=== PATIENT | male | born 1950 | race Caucasian/White ===

== ENCOUNTER 2024-05-13 10:58 | Day surgery (SDC) | payer MEDICARE, BC, SELFPAY ==
[2024-05-13] VITALS (22 sets, daily range): BP systolic 98–156; BP diastolic 65–95; PULSE 65–86; RESP 14–20; TEMP 35.8–36.8; O2SAT 92–95; BMI 36.6
--- OUTSIDE RECORDS SUMMARY | 2024-05-13 11:04 | XMS_ITS | Clinical Summary ---
Author Organization [employer] Address [place], [place] [address] Care Team Providers Care Appellate [employer] Judge Name Role Phone Pcp, No Primary Care Provider Unavailabl e Allergies Active Allergy Reactions Criticality Noted Date Comments Iodine 05/05/2005 Lorazepam Hallucinations 07/21/2009 (ativan) hallucinations Shellfish Containing Products Anaphylaxis High 05/03/2005 mild reaction to shrimp Medications multivitamin (MVI) tablet Take 1 tablet. by mouth continuous as needed (pain). 0 05/15/19 17 Active acetaminophen SR (Tylenol 8 Hour) 650 mg Extended-Releas e tabletIndicatio ns:Chronic abdominal pain Take 1 Tablet (650 mg) by mouth every 8 hours if needed. Max acetaminophen dose: 4000mg in 24 hrs. 0 02/05/20 21 Active apixaban (Eliquis) 5 mg tabletIndicatio ns:Chronic deep vein thrombosis (DVT) of femoral vein, unspecified laterality (HC) Take 0.5 Tablets (2.5 mg) by mouth two times daily. 90 Tablet 4 05/16/19 24 Active Additional Information Patient taking differently:2.5 mg OralDAILY, Reported on 05/12/2024 allopurinoL (ZYLOPRIM) 100 mg tabletIndicatio ns:Elevated uric acid in blood Take 2 Tablets (200 mg) by mouth once daily. take 100mg by mouth once daily for 2 weeks; then increase to 200mg for 2 weeks; then increase to 300mg 180 Tablet 1 09/27/19 24 Active DULoxetine (CYMBALTA) 60 mg Delayed-release capsuleIndicati ons:Chronic pain disorder,Neurop athy TAKE ONE CAPSULE BY MOUTH EVERY DAY START AFTER 30MG CAPSULE 90 Capsule 1 01/18/20 24 Active cholecalciferol (Vitamin D-3) 2,000 unit capsule Take 1 Capsule (2,000 units) by mouth once daily. 04/14/20 24 Active diphenhydrAMINE (BENADRYL) 25 mg capsule pt taking twice daily 04/14/20 24 Active pantoprazole (PROTONIX) 40 mg delayed-release tabletIndicatio ns:Gastroesopha geal reflux disease, unspecified whether esophagitis present Take 1 Tablet (40 mg) by mouth once daily. 30 Tablet 2 04/14/20 24 Active celecoxib (CELEBREX) 200 mg capsuleIndicati ons:Chronic abdominal pain Take 1 Capsule (200 mg) by mouth 2 times daily if needed for Pain. FOR PAIN 180 Capsule 4 05/16/19 24 024 Discontin ued(*Med complete/ Regimen complete/ Level of care change) pantoprazole (PROTONIX) 40 mg delayed-release tabletIndicatio ns:Gastroesopha geal reflux disease, unspecified whether esophagitis present Take 1 Tablet (40 mg) by mouth once daily. 30 Tablet 03/18/20 24 024 Discontin ued(Reord er (E-cancel not sent)) Active Problems Problem Noted Date Diagnosed Date Prediabetes 04/21/2024 Factor 5 Leiden mutation, heterozygous 4 Abnormal glucose 09/27/2023 Hyperlipidemia 07/02/2022 Noncompliance with medications 06/10/2019 Arthritis of right knee 01/31/2019 Chronic pain of right knee 01/31/2019 Acquired varus deformity knee, right 01/31/2019 History of arthroplasty of left knee 01/31/2019 Pes anserinus tendinitis of right lower extremit y 01/31/2019 Prothrombin gene mutation 10/01/2018 Failure of outpatient treatment 08/15/2017 Left nephrolithiasis 08/15/2017 Ventral hernia with obstruction, without gangren e 08/15/2017 B12 deficiency 07/08/2017 Chronic pain disorder 06/15/2016 Pelvic fracture 10/28/2007 Overview (03/18/2024): [employer] ALCOHOL OVERUSE 05/06/2005 Dvt femoral (deep venous thrombosis) 05/05/2005 Overview (05/06/2005): right superficial femoral/popliteal clot on u/s [place] 05/03/05 Gastroesophageal reflux disease with esophagitis Resolved Problems Problem Noted Date Diagnosed Date Resolved Date Pain medication agreement 10/16/2014 Anticoagulation monitoring, INR range 2-3 02/17/2013 11/12/2015 Overview (11/12/2015): Hilda Jett MD at 10/13/2015 10:34 AM Status: Signed Expand All Collapse All Both Apixaban and Rivaroxaban have the same co-pay of $24 a month. Decision was made to proceed with apixaban 2.5 mg twice daily, long-term. Patient education brochure was given to the patient. Hilda Jett MD, FACP, [facility], [facility] Vascular Medicine Post-traumatic seroma 04/13/20092023 Colitis 12/08/2007 03/18/2024 Urethral injury 10/28/2007 03/18/2024 Overview (03/18/2024): disruption CHOLELITHIASIS 05/05/2005 05/15/2016 RUQ PAIN 05/05/2005 05/15/2016 HYPOXIA 05/05/2005 05/15/2016 Chronic pain disorder 2023 Overview (07/23/2019): Regular tramadol use,#120 should last 30 days. Strict. Encounter for screening colonoscopy 03/18/2024 Encounters Date Type Department Care Team Description 05/12/2024 10:50 AM HOUSE STEWARD/STEWARDESS Office Visit [address] [phone] Juanis Carrero NP Follow Up (Before surgery tomorrow ) 05/12/2024 Travel 04/29/[address] [address] Juanis Carrero NP Medication Management (celecoxib (CELEBREX) ) 04/22/2024 10:15 AM HOUSE STEWARD/STEWARDESS Orders Only [address] [place] [address] Lab, [facility] 04/21/2024 5:00 PM HOUSE STEWARD/STEWARDESS Office Visit [facility] [address] [place] [phone] Dalila Martinez NP Diarrhea (Liquid stools, cramping stomach x 4 days.) 04/21/2024 Travel 04/21/[address] [place] [address] Juanis Carrero NP 04/21/2024 Nurse Triage [address] [address] Juanis Carrero NP Diarrhea 04/18/[address] [address] Juanis Carrero NP Orthopedic Referral (Dr. Rodriguez- [facility]) 04/15/[address] [address] Juanis Carrero NP Lab 04/15/[address] [place] [address] Juanis Carrero NP 04/14/2024 9:10 AM HOUSE STEWARD/STEWARDESS Office Visit [address] [place] [address] Juanis Carrero NP Pre-Op Exam (05/13/24- right knee placement, [facility]); Form (handicap parking) 04/14/[address] [place] [address] Juanis Carrero NP 04/14/2024 Orders Only [address] [place] [address] Juanis Carrero NP 1 scan: (1-Ord) 04/14/2024 04/14/2024 Travel 04/03/[address] [place] [address] Juanis Carrero NP Error-please disregard 03/18/2024 10:20 AM HOUSE STEWARD/STEWARDESS Ancillary Procedure [address] [address] 03/18/2024 10:15 AM HOUSE STEWARD/STEWARDESS Ancillary Procedure [address] [address] 03/18/2024 8:45 AM HOUSE STEWARD/STEWARDESS Office Visit [address] [place] [address] Juanis Carrero, ED Pain (right knee, right hip, shoulders, arms, wrists); Eye Problem (watery eyes more often, wound under eye); Acid Indigestion (vomiting); Sinus Problem (morning phlegm/sinus issues) 03/18/[address] [place] [address] Juanis Carrero NP 03/18/2024 Travel from Last 3 Months Immunizations Name Administration Dates Next Due COVID-19 vaccine (Pfizer-Bio NTech 30mcg/0.3mL) 12YO+ BIVALENT PF, MDV 09/14/2022 COVID-19 vaccine (Pfizer-Bio NTech 30mcg/0.3mL) 12YO+ GRACIELA-SUCROSE PF, MDV 10/03/2021 COVID-19 vaccine (Pfizer-Bio NTech 30mcg/0.3mL) PF, MDV 02/04/2021,07/13/2020,06/22/2020 HepA-HepB (Twinrix) 06/10/2019,06/28/2017,2016 Hepatitis A, Unspecified 05/15/2016 Influenza A (H1N1), Inactivated 05/12/2009 Influenza Virus, Unspecified 01/28/2017 Influenza, CCIIV3 (Age >=6 M O) (Egg Free) 01/27/2014 Influenza, IIV3 (Age >=3 years) 01/09/2012,01/10 Influenza, IIV4 01/25/2017, 6,02/12/2015,01/07 Influenza, Inactivated AIIV4 (Age 65+ Years) Preserv Free 03/15/2023,02/14/2022,02/04/2021,01/13 Influenza, Inactivated IIV3 (Age 65+ Years) Preserv Free 02/05/2024,01/27/2019,02/26/2018 Pneumococcal Poly,23-Valent (Pneumovax) 06/10/2019 Pneumococcal conj 13-Valent (Prevnar 13) 06/28/2017 RSV, Bivalent Vaccine Recons tituted (Abrysvo 120MCG/0.5mL) 04/18/2023 Td (Age >=7 Years) 10/28/2007 Tdap 05/27/2014 Zoster (Shingrix-RZV, recombinant) 10/03/2021, Family History Medical History Relation Name Comments Cancer Father age 57 fro m salivary gland cancer GI Disease Mother celiac Heart attack Paternal Uncle 1 Rudolph Heart attack Paternal Uncle 2 Bob Anesthesia Problem No Family History Relation Name Status Comments Father (Age 57) Maternal Grandfather Maternal Grandmother Mother Paternal Grandfather Paternal Grandmother Paternal Uncle 1 Rudolph Paternal Uncle 2 Bob Social History Tobacco Use Types Packs/Day Years Used Date Smoking Tobacco: Never Passive Smoke Exposure: Never Smokeless Tobacco: Never Tobacco Cessation:Counseling Given: Not Answered Alcohol Use Standard Drinks/Week Comments Not Currently 0 (1 standard drink = 0.6 oz pur e alcohol) drinks 2-3 beers per day PHQ-2 Answer Date Recorded PHQ-2 TOTAL SCORE 0 05/16/2023 Social Connections Answer Date Recorded Do you often feel lonely or isolated from those around you? 0 02/26/2023 Financial Resource Strain Answer Date R ecorded Difficulty of Paying Living Expenses 3 02/26/2023 Difficulty of Paying Living Expenses Not on file 02/26/2023 Food Insecurity Answer Date Recorded Do you worry your food will run out before you are able to buy more? 1 02/26/2023 Transportation Needs Answer Date Record ed Does lack of transportation keep you from medica l appointments? 1 02/26/2023 Does lack of transportation keep you from work, meetings or getting things that you need? 1 02/26/2023 Housing Stability Answer Date Recorded What is your housing situation today? 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 Not on file Not on file Obstetrics History Last Filed Vital Signs Vital Sign Reading Time Taken Comments Blood Pressure 126/74 05/12/2024 10:54 AM HOUSE STEWARD/STEWARDESS Pulse 78 05/12/2024 10:54 AM HOUSE STEWARD/STEWARDESS Temperature 36.4 C (97.5 F) 04/21/2024 5:41 PM HOUSE STEWARD/STEWARDESS Respiratory Rate 20 04/21/2024 5:41 PM HOUSE STEWARD/STEWARDESS Oxygen Saturation 94% 04/21/2024 5:41 PM HOUSE STEWARD/STEWARDESS Inhaled Oxygen Concentration - - Weight 114.9 kg (253 lb 3.2 oz) 025 10:54 AM HOUSE STEWARD/STEWARDESS Height 177 cm (5' 9.69) 05/29/2023 10: 59 AM HOUSE STEWARD/STEWARDESS Body Mass Index 36.66 05/29/2023 10:59 AM HOUSE STEWARD/STEWARDESS Plan of Treatment Health Maintenance Due Date Last Done Comments Depression screening for age 12+ 05/16/2024 05/16/2023, 05/16/2023, 09/14/2022, Additional history exists Medicare Wellness for age 65+ 05/16/2024, 08/05/2020, 06/28/2017 Tetanus booster 05/27/2024 05/27/2014, 10/28/2007 BMI (ht and wt on same day) for age 18+ 05/29/2024 05/29/2023, 05/16/2023, 09/14/2022, Additional history exists Lipids for age 45-75 05/16/2028 05/16/2023, 05/31/2022, 08/05/2020, Additional history exists Colonoscopy through age 75 07/21/203107/20, 07/17/2011, 04/01/2007, Additional history exists Tdap Completed 05/27/2014 Hepatitis C screening for ag e 18-79 Completed 06/10/2018, 05/15/2016 Pneumococcal series for age 50+ Completed , 06/28/2017 Zoster (shingles) series for age 50+ Completed 10/03/2021, 08/03/2021 RSV vaccine for adults or Completed 04/18/2023 COVID-19 vaccine series Completed 02/05/20, 03/15/2023, 09/14/2022, Additional history exists Influenza for age 65+ Completed 02/05/2024 , 03/15/2023, 02/14/2022, Additional history exists Procedures Procedure Name Priority Date/Time Associated Diagnosis Comments STOOL PATHOGEN MULTIPLEX PCR PANEL Routine 04/22/2024 5:00 AM HOUSE STEWARD/STEWARDESS Acute diarrhea CBC WITH AUTO DIFFERENTIAL Routine 04/14/2024 10:39 AM HOUSE STEWARD/STEWARDESS Factor 5 Leiden mutation, heterozygous (HC) Deep vein thrombosis (DVT) of femoral vein, unspecified chronicity, unspecified laterality (HC) COMP METABOLIC PANEL Routine 04/14/2024 10:39 AM HOUSE STEWARD/STEWARDESS Factor 5 Leiden mutation, heterozygous (HC) Deep vein thrombosis (DVT) of femoral vein, unspecified chronicity, unspecified laterality (HC) URIC ACID Routine 04/14/2024 10:39 AM HOUSE STEWARD/STEWARDESS Gout, unspecified cause, unspecified chronicity, unspecified site EKG 12 LEAD Routine 04/14/2024 12:00 AM HOUSE STEWARD/STEWARDESS Pre-op exam HEMOGLOBIN A1C Add On 04/14/2024 12:00 AM HOUSE STEWARD/STEWARDESS Elevated blood sugar XR HIP 2 OR 3 VIEWS W PELVIS RIGHT Routine 03/18/2024 10:32 AM HOUSE STEWARD/STEWARDESS Hip pain, right XR KNEE WB 1 VIEW AP BILATERAL AND 2 VIEWS RIGHT STAT 03/18/2024 10:31 AM HOUSE STEWARD/STEWARDESS Arthritis of right knee LIPID PANEL W REFLEX MEASURED LDL Routine 05/16/2023 9:35 AM HOUSE STEWARD/STEWARDESS Hyperlipidemia, unspecified hyperlipidemia type COLONOSCOPY 07/20/2021 10:54 AM CDT ANTI HCV Routine 06/10/2018 10:57 AM HOUSE STEWARD/STEWARDESS Encounter for HCV screening test for high risk patient from Last 3 Months or Most Recently Relevant to Health Maintenance Results * (ABNORMAL) STOOL PATHOGEN MULTIPLEX PCR PANEL (04/22/2024 5:00 AM HOUSE STEWARD/STEWARDESS) Campylobacter NOT Detected NOT Detected 04/23/2024 6:06 PM HOUSE STEWARD/STEWARDESS [facility] Salmonella NOT Detected NOT Detected 04/23/2024 6:06 PM HOUSE STEWARD/STEWARDESS [facility] Shigella NOT Detected NOT Detected 04/23/2024 6:06 PM HOUSE STEWARD/STEWARDESS [facility] Vibrio NOT Detected NOT Detected 04/23/2024 6:06 PM HOUSE STEWARD/STEWARDESS [facility] Yersinia Enterocolitica NOT Detected NOT Detected 04/23/2024 6:06 PM [facility] Shiga Toxin 1 NOT Detected NOT Detected 04/23/2024 6:06 PM HOUSE STEWARD/STEWARDESS [facility] Shiga Toxin 2 NOT Detected NOT Detected 04/23/2024 6:06 PM HOUSE STEWARD/STEWARDESS [facility] Norovirus Detected(A) NOT Detected 04/23/2024 6:06 PM HOUSE STEWARD/STEWARDESS [facility] Rotavirus NOT Detected NOT Detected 04/23/2024 6:06 PM HOUSE STEWARD/STEWARDESS [facility] Stool STOOL SPECIMEN / Unknown Non-Blood / Unknown 04/22/2024 5:00 AM HOUSE STEWARD/STEWARDESS 04/22/2024 10:18 AM HOUSE STEWARD/STEWARDESS [facility] - 04/23/2024 6:06 PM HOUSE STEWARD/STEWARDESS This test is a Culture Independent Diagnostic Test (CIDT) therefore isolates are not available for susceptibility testing. Antibiotic treatment is often contraindicated and may be detrimental in cases of enteric infections, thus routine susceptibility testing is not recommended. us Dalila Martinez NP MICROBIOLOGY Final Re sult [facility] [address] * CBC AND DIFFERENTIAL (04/14/2024 10:39 AM HOUSE STEWARD/STEWARDESS) [facility] WHITE BLOOD CELL COUNT 7.2 3.8 - 10.8 Thousand/u L [facility] RED BLOOD CELL COUNT 4.65 4.20 - 5.80 Million/uL [facility] HEMOGLOBIN 14.4 13.2 - 17.1 g/dL [facility] HEMATOCRIT 41.9 38.5 - 50.0 % [facility] MCV 90.1 80.0 - 100.0 fL [facility] MCH 31.0 27.0 - 33.0 pg [facility] MCHC 34.4 32.0 - 36.0 g/dL [facility] Comment: For adults, a slight decrease in the calculated MCHC value (in the range of 30 to 32 g/dL) is most likely not clinically significant; however, it should be interpreted with caution in correlation with other red cell parameters and the patient's clinical condition. RDW 12.9 11.0 - 15.0 % [facility] PLATELET COUNT 302 140 - 400 Thousand/u L [facility] MPV 9.4 7.5 - 12.5 fL [facility] ABSOLUTE NEUTROPHILS 4,378 1,500 - 7,800 cells/uL [facility] ABSOLUTE LYMPHOCYTES 1,721 850 - 3,900 cells/uL [facility] ABSOLUTE MONOCYTES 684 200 - 950 cells/uL [facility] ABSOLUTE EOSINOPHILS 346 15 - 500 cells/uL [facility] ABSOLUTE BASOPHILS 72 0 - 200 cells/uL [facility] NEUTROPHILS 60.8 % [facility] LYMPHOCYTES 23.9 % [facility] MONOCYTES 9.5 % [facility] EOSINOPHILS 4.8 % [facility] BASOPHILS 1.0 % [facility] Blood BLOOD SPECIMEN / Unknown 04/14/2024 10:39 AM HOUSE STEWARD/STEWARDESS 04/14/2024 10:40 AM HOUSE STEWARD/STEWARDESS Juanis Carrero NP HEMATOLOGY Final Result Performing Organization Address City/[facility]/ZIP Co de Phone Number [facility] [address] [place] [address], [facility] [address] [place] [address] * URIC ACID (04/14/2024 10:39 AM HOUSE STEWARD/STEWARDESS) [facility] URIC ACID 4.2 4.0 - 8.0 mg/dL [facility] Comment: Therapeutic target for gout patients: <6.0 mg/dL Blood BLOOD SPECIMEN / Unknown 04/14/2024 10:39 AM HOUSE STEWARD/STEWARDESS 04/14/2024 10:40 AM HOUSE STEWARD/STEWARDESS Juanis Carrero NP CHEMISTRY Final Result Performing Organization Address [facility] Co de Phone Number [facility] [address] [place] [address], [facility] [address] [place] [address] * (ABNORMAL) COMP METABOLIC PANEL (04/14/2024 10:39 AM HOUSE STEWARD/STEWARDESS) [facility] GLUCOSE 125(H) 65 - 99 mg/dL [facility] Comment: Fasting reference interval For someone without known diabetes, a glucose value between 100 and 125 mg/dL is consistent with prediabetes and should be confirmed with a follow-up test. UREA NITROGEN (BUN) 17 7 - 25 mg/dL [facility] CREATININE 0.89 0.70 - 1.28 mg/dL [facility] EGFR 92 > OR = 60 mL/min/1. 73m2 [facility] BUN/CREATININE RATIO SEE NOTE: (calc) [facility] Comment: Not Reported: BUN and Creatinine are within reference range. SODIUM 139 135 - 146 mmol/L [facility] POTASSIUM 4.7 3.5 - 5.3 mmol/L [facility] CHLORIDE 105 98 - 110 mmol/L [facility] CARBON DIOXIDE 24 20 - 32 mmol/L [facility] CALCIUM 9.3 8.6 - 10.3 mg/dL [facility] PROTEIN, TOTAL 6.6 6.1 - 8.1 g/dL [facility] ALBUMIN 4.0 3.6 - 5.1 g/dL [facility] GLOBULIN 2.6 1.9 - 3.7 g/dL (calc) [facility] ALBUMIN/GLOBULIN RATIO 1.5 1.0 - 2.5 (calc) [facility] BILIRUBIN, TOTAL 0.3 0.2 - 1.2 mg/dL [facility] ALKALINE PHOSPHATASE 106 35 - 144 U/L [facility] AST 16 10 - 35 U/L [facility] ALT 12 9 - 46 U/L [facility] Blood BLOOD SPECIMEN / Unknown 04/14/2024 10:39 AM HOUSE STEWARD/STEWARDESS 04/14/2024 10:40 AM HOUSE STEWARD/STEWARDESS Juanis Carrero NP CHEMISTRY Final Result [facility] [address] [place] [address], [facility] [address] [place] [phone] * (ABNORMAL) HEMOGLOBIN A1C (04/14/2024 12:00 AM HOUSE STEWARD/STEWARDESS) HEMOGLOBIN A1C 5.8(H) <5.7 % of total Hgb [facility] Comment: For someone without known diabetes, a hemoglobin A1c value between 5.7% and 6.4% is consistent with prediabetes and should be confirmed with a follow-up test. For someone with known diabetes, a value <7% indicates that their diabetes is well controlled. A1c targets should be individualized based on duration of diabetes, age, comorbid conditions, and other considerations. This assay result is consistent with an increased risk of diabetes. Currently, no consensus exists regarding use of hemoglobin A1c for diagnosis of diabetes for children. Blood BLOOD SPECIMEN / Unknown 04/14/2024 04/15/2024 5:35 PM HOUSE STEWARD/STEWARDESS us Juanis Carrero NP CHEMISTRY Final Result [facility] [address] [place] [address], [facility] [address] [place] [address] * EKG 12 LEAD (04/14/2024 12:00 AM HOUSE STEWARD/STEWARDESS) us Juanis Carrero NP EKG ORD Final Result * XR HIP 2 OR 3 VIEWS W PELVIS RIGHT (03/18/2024 10:32 AM HOUSE STEWARD/STEWARDESS) Anatomical Region Laterality Modality HIPS, HIPR, Pelvis Computed Radi ography 03/18/2024 11:1 7 AM HOUSE STEWARD/STEWARDESS Impressions 03/18/2024 11:17 AM HOUSE STEWARD/STEWARDESS No significant change from the CT scan of 08/13/2017. Dictated by Nadege Valverde MD @ 03/18/2024 11:17:20 AM (Electronically Signed) Narrative 03/18/2024 11:17 AM HOUSE STEWARD/STEWARDESS For Patients: As a result of the Cures Act, medical imaging exams and procedure reports are released immediately into your electronic medical record. You may view this report before your referring provider. If you have questions, please contact your health care provider. INDICATION: Right hip pain. TECHNIQUE: AP pelvis and right hip, 3 views. COMPARISON: CT abdomen pelvis 08/13/2017. FINDINGS: Chronic posttraumatic distortion of the symphysis pubis and right superior/inferior pubic ramus similar to the previous CT. Metallic hardware in the left pelvis with single long screw traversing from the left iliac wing through the sacrum into the right iliac wing similar to the prior CT. Right hip joint spacing normal. No acute fracture, dislocation, joint arthropathy or lytic bone destruction. Procedure Note Julien Valverde MD - 03/18/2024 For Patients: As a result of the Cures Act, medical imagingexams and procedure reports are released immediately into your electronicmedical record. You may view this report before your referring provider.If you have questions, please contact your health care provider. INDICATION: Right hip pain. TECHNIQUE: AP pelvis and right hip, 3 views. COMPARISON: CT abdomen pelvis 08/13/2017. FINDINGS: Chronic posttraumatic distortion of the symphysis pubis and rightsuperior/inferior pubic ramus similar to the previous CT. Metallichardware in the left pelvis with single long screw traversing from theleft iliac wing through the sacrum into the right iliac wing similar tothe prior CT. Right hip joint spacing normal. No acute fracture, dislocation, jointarthropathy or lytic bone destruction. IMPRESSION: No significant change from the CT scan of 08/13/2017. Dictated by Nadege Valverde MD @ 03/18/2024 11:17:20 AM (Electronically Signed) Juanis Carrero NP GENERAL IMAGING Final Result * XR KNEE WB 1 VIEW AP BILATERAL AND 2 VIEWS RIGHT (03/18/2024 10:31 AM HOUSE STEWARD/STEWARDESS) Anatomical Region Laterality Modality KNEES, KNEE R Computed Radiogr aphy 03/18/2024 10:3 9 AM HOUSE STEWARD/STEWARDESS Narrative 03/18/2024 10:39 AM HOUSE STEWARD/STEWARDESS For Patients: As a result of the Cures Act, medical imaging exams and procedure reports are released immediately into your electronic medical record. You may view this report before your referring provider. If you have questions, please contact your health care provider. Indication: Arthritis of the right knee Comparison: None available. Technique: Standing AP, lateral, and sunrise views of the right knee were obtained Findings: There is no displaced fracture or dislocation. Redemonstration and progression of severe degenerative changes of the medial compartments with loss of joint space, subchondral sclerosis and tibial spine spurring. There is a small suprapatellar joint effusion. Impression: Severe degenerative changes of the medial compartment progressed from remote comparison exam. No evidence of acute osseous abnormality. Small suprapatellar joint effusion. Dictated by Delroy Pritchard MD @ 03/18/2024 10:39:25 AM (Electronically Signed) Procedure Note Delroy Pritchard MD - 03/18/2024 For Patients: As a result of the Cures Act, medical imagingexams and procedure reports are released immediately into your electronicmedical record. You may view this report before your referring provider.If you have questions, please contact your health care provider. Indication: Arthritis of the right knee Comparison: None available. Technique: Standing AP, lateral, and sunrise views of the right knee were obtained Findings: There is no displaced fracture or dislocation. Redemonstration and progression of severe degenerative changes of themedial compartments with loss of joint space, subchondral sclerosis andtibial spine spurring. There is a small suprapatellar joint effusion. Impression: Severe degenerative changes of the medial compartment progressed fromremote comparison exam. No evidence of acute osseous abnormality. Smallsuprapatellar joint effusion. Dictated by Delroy Pritchard MD @ 03/18/2024 10:39:25 AM (Electronically Signed) Juanis Carrero NP GENERAL IMAGING Final Result * (ABNORMAL) LIPID PANEL W REFLEX MEASURED LDL (05/16/2023 9:35 AM [facility]) CHOLESTEROL,TOTAL 202(H) 100 - 199 mg/dL 05/16/2023 10:07 AM [facility] Comment: Cholesterol, Total Reference Ranges Desirable <200 mg/dL Borderline 200-239 mg/dL High >=240 mg/dL TRIGLYCERIDES 98 <150 mg/dL 05/16/2023 10:07 AM [facility] HDL CHOLESTEROL 70 >40 mg/dL 10:07 AM [facility] NON-HDL CHOLESTEROL 132 <145 mg/dl 05/16/2023 10:07 AM [facility] CHOL/HDL RATIO 2.89 <4.50 05/16/2023 10:07 AM [facility] LDL CHOLESTEROL 112 <=130 mg/dL 05/16/2023 10:07 AM [facility] VLDL CHOLESTEROL 20 <=30 mg/dL 05/16/2023 10:07 AM [facility] PROVIDER ORDERED STATUS RANDOM 05/16/2023 10:07 AM [facility]ST[facility]ARD[facility] Blood BLOOD SPECIMEN / Unknown Venipuncture / Unknown 05/16/2023 9:35 AM [facility] 05/16/2023 9:35 AM [facility] us Gage Casillas DO CHEMISTRY Final Res ult [facility] [address] [place] [address] * COLONOSCOPY (07/20/2021 10:54 AM CDT) 07/20/2021 10:5 4 AM CDT Narrative Transcriptions Taiwo Lynn MD - 07/20/2021 11:42 AM CDT Patient Name: Jarred Underwood Procedure Date: 07/20/2021 Gender: Male Date of : 1950 Admit Type: Ambulatory Procedure: Colonoscopy Proceduralist: Taiwo Gonzales Indications/Pre-Op Diagnosis: Screening for colorectal malignantneoplasm Medications: Midazolam 5 mg IV, Fentanyl 100 microgramsIV Procedure Description: The patient had risks, benefits and alternatives explained to andgave informed consent. The patient had a stable cardiopulmonary status and judged an adequate candidate for conscious sedation. The colonoscope was passed through the anus and advanced to thececum, identified by appendiceal orifice and ileocecal valve. Thecolonoscopy was performed without difficulty. The patient tolerated the procedure well. The quality of the bowel preparation was adequate. Theileocecal valve, appendiceal orifice, and rectum were photographed. Complications: No immediate complications. Estimated Blood Loss & Specimen: Estimated blood loss: none. Specimen collected - None Findings: The perianal and digital rectal examinations were normal. The retroflexed view of the distal rectum and anal verge was normaland showed no anal or rectal abnormalities. There was evidence of a prior end-to-end colo-colonic anastomosis inthe distal sigmoid colon. This was patent and was characterized byhealthy appearing mucosa. Impressions/Post-Op Diagnosis: - Patent end-to-end colo-colonic anastomosis, characterized byhealthy appearing mucosa. - No specimens collected. Recommendation: - Discharge patient to home. - Resume previous diet. - Continue present medications. - Repeat colonoscopy in 10 years for surveillance. Moderate Sedation: Moderate (conscious) sedation was administered by the endoscopy nurse and supervised by the endoscopist. [Parameters Monitored]. [Sedation Duration Time]. Moderate (conscious) sedation was administered by the endoscopy nurse and supervised by the endoscopist. The patient's oxygen saturation, heart rate, blood pressure and response to care were monitored. Total physician intraservice time was 24 minutes. Taiwo Lynn, 07/20/2021 11:42:36 AM This report has been signed electronically. Note Initiated On: 07/20/2021 10:54 AM Taiwo Lynn MD PROCEDURE ORD Final Res ult * ANTI HCV (06/10/2018 10:57 AM [facility]) HEPATITIS C ANTIBODY Non-React napoleon Non-React napoleon 06/10/2018 8:03 PM [facility] Comment:Antibodies to HCV no t detected; does not exclude the possibility of exposure to HCV. Blood BLOOD SPECIMEN / Unknown Venipuncture / Unknown 06/10/2018 10:57 AM [facility] 06/10/2018 10:57 AM [facility] Gage Anderson Vinny DO SEND OUTS Final Res ult [facility] [address] [place] [address], [place] from Last 3 Months or Most Recently Relevant to Health Maintenance Insurance [employer] [place] [employer] [place] BLUE MR PB ONLY [employer] [place] BLUE HB ONLY MEDICARE PART B HB ONLY MEDICARE PART A HB ONLY MEDICARE PB ONLY [employer] [place] BLUE MR PB ONLY Advance Directives * Full Code (Latest Code Status on File) Date Activated Date Inactivated Comments 07/20/2021 9:48 AM 07/20/2021 3:44 PM Question Answer Comments Code Status Discussion: Per Existing Order * Full Code Date Activated Date Inactivated Comments 08/15/2017 11:00 AM 08/16/2017 7:24 PM Question Answer Comments Code Status Discussion: Discussed pt not s ure though * Full Code Date Activated Date Inactivated Comments 08/03/2017 12:12 PM 08/04/2017 2:28 AM Question Answer Comments Code Status Discussion: Discussed * Full Code Date Activated Date Inactivated Comments 05/05/2005 8:32 PM 05/09/2005 1:[address] Judge Relationship Specialty Start Date End Date Pcp, No . PCP - General 07/12/23
[2024-05-13] MEDS: LACTATED RINGERS 1000 ML 1,000 ML 100 ML IV (12:00)
[2024-05-13] MEDS: SODIUM CHLORIDE 0.9 % (FLUSH) 10 ML SYRINGE IVF (12:00)
[2024-05-13] MEDS: OXYCODONE (CR) 10 MG TAB.ER.12H PO (12:15)
[2024-05-13] MEDS: CELECOXIB 200 MG CAPSULE PO (12:15)
[2024-05-13] MEDS: ACETAMINOPHEN 500 MG TABLET 1000 MG PO ×2 (12:15→18:55)
[2024-05-13] MEDS: MIDAZOLAM HCL 1 MG/ML inj IVP (12:20)
[2024-05-13] MEDS: fentaNYL 100 MCG/2 ML inj IVP (12:20)
--- NOTE | 2024-05-13 12:30 | SUR.PREOP ---
TIME?OUT:?1210, right knee PT/RN/MDA?VERIFICATION?OF?SURGICAL?SITE,?PROCEDURE,?AND?CONSENT OBTAINED?PRIOR?TO?INVASIVE?PROCEDURE.
--- NOTE | 2024-05-13 12:42 | P.NB_ITS ---
Nerve Block Nerve Block Time Seen by Provider: 12:20 Date Seen: 05/13/24 Type of block requested by surgeon for post-operative analgesia: adductor canal Side: right Time out performed: Yes Verification of patient name: Yes Verification of date of : Yes Site marking: site marked Name of person performing procedure: Earl Continuous monitoring Was continuous monitoring of O2 sat, B/P, personnel monitor, recorded every 15 minutes?: Yes Procedure Checklist: sterile prep, needles and gloves Ultrasound guided. Images saved: Yes Medications given in 5ml increments after negative aspiration: Marcaine %: 0.25 mL: 15 Needle gauge: 20 Precedex (mcg): 25 Patient tolerated procedure well: Yes Block Charges Block Charge (with Pro Fee): Femoral Nerve Use of Ultrasound Machine for Block: Yes- US Guidance/pain block
--- NOTE | 2024-05-13 12:42 | P.ANES_ITS ---
Anesthesia Charges Start Date/Time Anesthesia Start Date: 05/13/24 Anesthesia Start Time: 12:27 Stop Date/Time Anesthesia Stop Date: 05/13/24 Anesthesia Stop Time: 14:54 Summary Extremes of Age - Over 70 or under 1: MDA Coding CPT Codes CPT Codes: ANESTH KNEE ARTHROPLASTY - 93517 ([id number]) P2 - PATIENT W/MILD SYST DISEASE, QK - SUPERVISORY LIFEGUARD 2-4 CNCRNT ANES PROC, QX - RETAIL ASSISTANT SVC W/ MD MED DIRECTION Additional Codes: Summary - Extremes of Age - Over 70 or under 1: MDA ([id number])
--- NOTE | 2024-05-13 12:42 | P.NB_ITS ---
Nerve Block Nerve Block Time Seen by Provider: 01:20 Date Seen: 05/13/24 Type of block requested by surgeon for post-operative analgesia: geniculars Side: right Time out performed: Yes Verification of patient name: Yes Verification of date of : Yes Site marking: site marked Name of person performing procedure: Earl Continuous monitoring Was continuous monitoring of O2 sat, B/P, nuclear monitoring technician, recorded every 15 minutes?: Yes Procedure Checklist: sterile prep, needles and gloves Ultrasound guided. Images saved: Yes Medications given in 5ml increments after negative aspiration: Marcaine %: 0.25 mL: 9 Needle gauge: 25 Patient tolerated procedure well: Yes Block Charges Block Charge (with Pro Fee): Genicular Nerve Block
--- NOTE | 2024-05-13 12:42 | W.ANESCHARGE ---
Anesthesia Charges Start Date/Time Anesthesia Start Date: 05/13/24 Anesthesia Start Time: 12:27 Stop Date/Time Anesthesia Stop Date: 05/13/24 Anesthesia Stop Time: 14:54 Summary Extremes of Age - Over 70 or under 1: MDA Coding CPT Codes CPT Codes: ANESTH KNEE ARTHROPLASTY - 92081 ([id number]) P2 - PATIENT W/MILD SYST DISEASE, QK - ACCOUNT RETENTION REPRESENTATIVE 2-4 CNCRNT ANES PROC, QX - FIELD REPRESENTATIVE/HEALTH EDUCATION SVC W/ MD MED DIRECTION Additional Codes: Summary - Extremes of Age - Over 70 or under 1: MDA ([id number])
[2024-05-13] MEDS: 0.9 % SODIUM CHLORIDE 500 ML 500 ML IV (13:38)
--- NOTE | 2024-05-13 14:59 | CRLHL7_ITS ---
For Patients: As a result of the Cures Act, medical imaging exams and procedure reports are released immediately into your electronic medical record. You may view this report before your referring provider. If you have questions, please contact your health care provider. INDICATION: Post operative, post operative total knee arthroplasty TECHNIQUE: Knee radiograph 2 views right COMPARISON: None FINDINGS: Bone: No acute fractures or aggressive bone lesions are identified. Joint: The patient is status post a total knee arthroplasty with patellar resurfacing. No significant knee effusion is seen. Soft tissue: Anterior skin, subcutaneous gas and joint gas are present from recent surgery. No radiopaque foreign bodies are seen. IMPRESSION: 1. There is an unremarkable postoperative appearance of the knee arthroplasty. Dictated by: Jayson Bravo MD @ 05/14/2024 11:39:25 (Electronically Signed)
--- NOTE | 2024-05-13 15:00 | P.ORPRC_ITS ---
Procedure Note Date of procedure: 05/13/24 Procedure: PREOPERATIVE DIAGNOSIS: Right knee osteoarthritis POSTOPERATIVE DIAGNOSIS: Right knee osteoarthritis NAME OF OPERATION: Right total knee arthroplasty SURGEON: Ge Rodriguez MD TRAY PACKER: MAURICE Nair ANESTHESIA: Spinal ESTIMATED BLOOD LOSS: 0 mL COMPLICATIONS: None SPECIMENS: None DRAINS: None PREOPERATIVE ANTIBIOTICS: Ancef 2 grams, antibiotic impregnated cement IMPLANTS: 1. J&J Attune # 9 posterior stabilized femur 2. # 9 revision CRS fixed-bearing tibia, 14 mm x 50 mm cemented stem 3. # 9 posterior stabilized, 14 mm fixed-bearing polyethylene 4. 41 patella INDICATIONS: The patient is a 73-year-old with a longstanding history of severe, unrelenting right knee pain secondary to end-stage (grade IV) right knee osteoarthritis. Despite appropriate nonoperative management, including activity modification, anti-inflammatories, [id number] pain medication, bracing, physical therapy, and injections they continue to have pain and disability. Operative intervention was offered. The risks, benefits and expected outcomes were discussed in detail. These included but were not limited to: Infection, bleeding, injury to blood vessel or nerve, venous thromboembolism. All questions were answered to their satisfaction. Use of an specimen preparation assistant was necessary throughout the case for patient positioning and safety, soft tissue retraction, and closure. A modifier 22 should be added to this case. Because the patient weighs 116 kg and has a BMI of 37, a stemmed tibial component was used to decrease the risk of aseptic loosening. This added time and cost to complete the case. PROCEDURE: Spinal anesthesia was administered. The patient was placed supine on the operating table. The specimen preparation assistant made sure the patient was positioned appropriately. The lower extremity was prepped and draped in the usual sterile fashion. The limb was exsanguinated with the Caio bandage. The pneumatic tourniquet was inflated to 300 mmHg. A standard anterior incision was made with the knee in flexion. Subcutaneous dissection was sharply taken through fascial layer #1. Full-thickness medial and lateral flaps were elevated. The specimen preparation assistant retracted the soft tissues and protected them throughout the case. A standard subvastus approach was made. The patella was subluxed. The infrapatellar fat pad was debrided. The menisci and cruciate ligaments were sharply d?brided. Marginal osteophytes were d?brided with the rongeur. The drill was used to penetrate the femoral canal. The canal was aspirated and irrigated with pulse lavage. The intramedullary femoral guide was placed for a 5-degree valgus cut, removing 10 mm off the distal femur. The saw was used to make the cut. Whitesides line and the trans epicondylar axis were marked. The femoral sizing guide was pinned onto the distal femur. Three degrees of external rotation nicely parallels the transepicondylar axis. Pins were placed for posterior referencing. The four-in-one cutting guide was pinned onto the distal femur. The anterior, posterior, and chamfer cuts were made. The specimen preparation assistant protected the collateral ligaments. The box cutting guide was pinned. The box cuts were made. The boxed trial was placed and was an excellent fit. Drill holes for the lugs were made. Attention was then turned to the proximal tibia. The extramedullary tibial guide was placed for a neutral varus/valgus cut with 5 degrees of posterior slope, removing 2 mm based off the medial tibial surface. The specimen preparation assistant protected the collateral ligaments and the neurovascular bundle. The saw was used to make the cut. Trial components were placed. The knee was nicely balanced in both flexion and extension. The trial components were removed. The tray was placed in appropriate rotation, parallel to our tibial cutting pins. It was pinned by the specimen preparation assistant and the drill x2 was used. The stemmed tibial trial was placed. The punch was used. The tray was removed. The punch was used again. A bone plug was placed in the femoral canal. Attention was then turned to the patella. [place] patellar thickness was 27 mm. The lobster claw resection guide was used with the 9.5 mm hannah. The saw was used to make the cut. Drill holes were made by the specimen preparation assistant. The trial was placed and was an excellent fit. Cancellous surfaces were irrigated with pulse lavage and thoroughly dried by the specimen preparation assistant. We cemented the tibial component, then the femoral component. We impacted the 14 mm polyethylene onto the tibial tray. The knee was brought into full extension. We then cemented the patellar component. Excessive cement was removed. The cement was allowed to harden. The knee was taken through a range of motion and was found to be nicely balanced in both flexion and extension. The patella tracks centrally. The specimen preparation assistant did a three minute dilute Betadine solution soak. The specimen preparation assistant irrigated the wound with 3 liters of normal saline via pulse lavage. The specimen preparation assistant reapproximated the extensor mechanism with #1 Vicryl in an interrupted [id number] fashion. The specimen preparation assistant then ran the extensor mechanism with a #1 PDO Stratafix. The specimen preparation assistant closed the subcutaneous tissues with a 3-0 Stratafix and the skin with a running 3-0 Stratafix in a subcuticular fashion. Glue was used to seal the skin. The specimen preparation assistant placed a dry dressing. Sponge and needle counts were correct x2. The patient tolerated the procedure well. There were no apparent complications. They were carefully transferred to the hospital bed and taken to the postanesthesia care unit in satisfactory condition. PLAN: The patient will be mobilized with physical therapy. Xarelto will be restarted. They will be discharged to home once medically appropriate.
--- NOTE | 2024-05-13 15:13 | P.ANES_ITS ---
Anesthesia Charges Start Date/Time Anesthesia Start Date: 05/13/24 Anesthesia Start Time: 12:27 Stop Date/Time Anesthesia Stop Date: 05/13/24 Anesthesia Stop Time: 14:54 Coding CPT Codes CPT Codes: ANESTH KNEE ARTHROPLASTY - 89187 ([id number]) P2 - PATIENT W/MILD SYST DISEASE, QK - TRUCK DRIVER FLATBED 2-4 CNCRNT ANES PROC, QX - RN PICU SVC W/ MD MED DIRECTION
--- NOTE | 2024-05-13 15:13 | W.ANESCHARGE ---
Anesthesia Charges Start Date/Time Anesthesia Start Date: 05/13/24 Anesthesia Start Time: 12:27 Stop Date/Time Anesthesia Stop Date: 05/13/24 Anesthesia Stop Time: 14:54 Coding CPT Codes CPT Codes: ANESTH KNEE ARTHROPLASTY - 37937 ([id number]) P2 - PATIENT W/MILD SYST DISEASE, QK - EXPLOSIVE OPERATOR BOMB 2-4 CNCRNT ANES PROC, QX - BLIND EYELETTER SVC W/ MD MED DIRECTION
--- NOTE | 2024-05-13 15:34 | P.IMCN_ITS ---
Date of Consult Patient: Sue Patient Consult date: 05/13/24 Requesting Physician: Orthopedics Primary Care Provider: Juanis aCrrero CNP Consult Narrative Reason for consult: Medical management Narrative: Jarred Underwood is a 73 year old male past medical history significant for hyperlipidemia not currently on a statin, chronic pain disorder, B12 deficiency, GERD, left nephrolithiasis, history of DVT and PE, factor 5 Leiden mutation, prothrombin gene mutation, abnormal glucose, previous history of left TKA is POD#0 s/p right total knee arthroplasty with Dr. Rodriguez. There have been no perioperative complications or nursing concerns reported. Estimated total blood loss documented as 0 ml. Updated and reviewed the active medical problems, past medical history, past surgical history, social history, allergies and medications in our electronic EMR. Postoperatively, patient reports pain is minimal. Denies headache or dizziness. Denies chest pain or shortness of breath. Tolerating orals without nausea vomiting. Historically, patient drinks approximately 3 alcoholic drinks daily. His last drink was yesterday afternoon. Denies history of withdrawals or seizures. [facility] Medical History (Updated 05/13/24 @ 16:28 by Suki Silva PA-C) Alcohol use disorder ?F10.90 - Alcohol use, unspecified, uncomplicated (ICD-10) Gout ?M10.9 - Gout, unspecified (ICD-10) Personal history of PE (pulmonary embolism) ?Z86.711 - Personal history of pulmonary embolism (ICD-10) Unspecified closed fracture of pelvis ?S32.9XXA - Fracture of unspecified parts of lumbosacral spine and pelvis, initial encounter for closed fracture (ICD-10) Urethral injury ?S37.30XA - Unspecified injury of urethra, initial encounter (ICD-10) Colitis ?K52.9 - Noninfective gastroenteritis and colitis, unspecified (ICD-10) Post-traumatic seroma ?T79.2XXA - Traumatic secondary and recurrent hemorrhage and seroma, initial encounter (ICD-10) Abnormal glucose ?R73.09 - Other abnormal glucose (ICD-10) Chronic pain of right knee ?M25.561 - Pain in right knee (ICD-10) ?G89.29 - Other chronic pain (ICD-10) Prothrombin gene mutation ?D68.52 - Prothrombin gene mutation (ICD-10) Failure of outpatient treatment ?Z78.9 - Other specified health status (ICD-10) Chronic pain disorder ?G89.4 - Chronic pain syndrome (ICD-10) Left nephrolithiasis ?N20.0 - Calculus of kidney (ICD-10) Pelvic fracture ?S32.9XXA - Fracture of unspecified parts of lumbosacral spine and pelvis, initial encounter for closed fracture (ICD-10) Pes anserinus tendinitis of right lower extremity ?M76.891 - Other specified enthesopathies of right lower limb, excluding foot (ICD-10) Acquired varus deformity knee ?M21.169 - Varus deformity, not elsewhere classified, unspecified knee (ICD- 10) Arthritis of right knee ?M17.11 - Unilateral primary osteoarthritis, right knee (ICD-10) Factor 5 Leiden mutation, heterozygous ?D68.51 - Activated protein C resistance (ICD-10) Ventral hernia with obstruction, without gangrene ?K43.6 - Other and unspecified ventral hernia with obstruction, without gangrene (ICD-10) Gastroesophageal reflux disease with esophagitis ?K21.00 - Gastro-esophageal reflux disease with esophagitis, without bleeding (ICD-10) Hyperlipidemia ?E78.5 - Hyperlipidemia, unspecified (ICD-10) B12 deficiency ?E53.8 - Deficiency of other specified B group vitamins (ICD-10) Dvt femoral (deep venous thrombosis) ?I82.419 - Acute embolism and thrombosis of unspecified femoral vein (ICD-10) Surgical History (Updated 05/12/24 @ 08:50 by Shawna Sharma RN) History of laparoscopic cholecystectomy ?Z90.49 - Acquired absence of other specified parts of digestive tract (ICD- 10) History of partial surgical removal of colon ?Z90.49 - Acquired absence of other specified parts of digestive tract (ICD- 10) History of cataract removal with insertion of prosthetic lens ?Z98.49 - Cataract extraction status, unspecified eye (ICD-10) ?Z96.1 - Presence of intraocular lens (ICD-10) History of appendectomy ?Z90.49 - Acquired absence of other specified parts of digestive tract (ICD- 10) History of arthroplasty of left knee ?Z96.652 - Presence of left artificial knee joint (ICD-10) History of total left knee replacement (02/11/13) ?Z96.652 - Presence of left artificial knee joint (ICD-10) Social History What is your current living situation?: I presently have a place to live In the past 12 months, utilities in danger of being shut off: no In past 12 months, lack of transportation kept you from medical appts, meetings, work, or getting things needed for daily living: no In the past 12 mos, have been you worried that your food would run out before you had money to buy more?: never true In the past 12 mos, the food you bought just didn't last and you didn't have money to buy more?: never true Smoking Status: Never smoker How often do you have a drink containing alcohol: 4 or more times a week Alcohol type: beer and hard liquor How many standard drinks containing alcohol do you have on a typical day: 3 or 4 AUDIT-C Alcohol total score: 5 Non-prescribed substance use: denies use Caffeine: Yes How often does anyone, including family, friends and others, physically hurt you : never How often does anyone, including family, friends and others, insult or talk down to you: never How often does anyone, including family, friends and others, threaten you with harm: never How often does anyone, including family, friends and others, scream or curse at you: never service: No Meds Home Medications and Allergies Home Medications ?Medication ?Instructions ?Recorded ?Confirmed ?Type acetaminophen 650 mg 650 mg PO Q8H PRN 04/09/24 05/13/24 History tablet,extended release allopurinol 100 mg tablet 300 mg PO DAILY 04/09/24 05/13/24 History apixaban 5 mg tablet (Eliquis) 2.5 mg PO BID 04/09/24 05/13/24 History celecoxib 200 mg capsule (Celebrex) 200 mg PO BID PRN 04/09/24 05/13/24 History duloxetine 60 mg capsule,delayed 60 mg PO DAILY 04/09/24 05/13/24 History release pantoprazole 40 mg tablet,delayed 40 mg PO DAILY 04/09/24 05/13/24 History release Allergies Allergy/AdvReac Type Severity Reaction Status Date / Time iodine Allergy Severe throat Verified 05/13/24 11:20 swelling lorazepam AdvReac hallucinati Verified 05/13/24 11:20 ons Exam Const: Vital Signs, click to edit/add: Vital Signs - 24 hr 05/13/24 11:48 05/13/24 12:20 05/13/24 14:50 Temperature 98.2 F 98.0 F Pulse Rate 84 84 73 Respiratory Rate 20 20 14 Blood Pressure 154/85 H 156/86 H 103/67 Pulse Oximetry 94 95 92 Oxygen Delivery Me thod Room Air Nasal Cannula Room Air Oxygen Flow Rate 3 05/13/24 14:55 05/13/24 15:00 05/13/24 15:05 Temperature Pulse Rate 77 70 69 Respiratory Rate 16 18 16 Blood Pressure 100/70 105/78 109/65 Pulse Oximetry 93 92 94 Oxygen Delivery Me thod Oxygen Flow Rate 05/13/24 15:15 Temperature Pulse Rate 65 Respiratory Rate 14 Blood Pressure 106/70 Pulse Oximetry 92 Oxygen Delivery Me thod Oxygen Flow Rate Assessment and Plan Assessment and plan (1) Osteoarthritis of right knee: Problem comment: -POD#0 s/p right TKA, Dr. Rodriguez -perioperative management including pain management per Orthopedic surgery -on chronic anticoagulation for history of DVT/PE. Home apixaban has been renally dosed, 2.5 mg q.a.m.. Last dose was 05/09/2024. Patient given a dose evening of 05/13/2024. Postop Aspirin discontinued. Postop anticoagulation renal dosing recommended by PCP. 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 Creatinine baseline 0.89-1.10, EGFR baseline 80-92 Status: Acute (3) Alcohol use disorder: Problem comment: -chronic, 3 alcoholic beverages nightly -last drink was afternoon of 05/12/2024 -[facility]THE[facility]OK. Denies history of withdrawals or seizures Status: Acute (4) Chronic pain disorder: Problem comment: -chronic, with neuropathy, continue duloxetine -Celebrex has been held preoperatively Status: Acute (5) Gout: Problem comment: -continue allopurinol Status: Acute Total Time Spent Total Time Spent: Total time spent caring for the patient today was 45 minutes. This includes time spent for the visit reviewing the chart, time spent during the visit, time spent after the visit and documentation and planning in coordination of care.
[2024-05-13] MEDS: LACTATED RINGERS 1000 ML 1,000 ML 75 ML IV (15:50)
[2024-05-13] MEDS: HYDROmorphone 0.5 mg/0.5 ml inj IVP (16:09)
[2024-05-13] MEDS: OXYCODONE 5 MG TABLET PO ×2 (17:19→20:46)
[2024-05-13] MEDS: CEFAZOLIN 2 GM in 0.9 % SODIUM CHLORIDE Mini-bag 100 ML IVPB (18:55)
--- NOTE | 2024-05-13 19:27 | PC.NURSE ---
End of Shift: Patient pleasant and cooperative, A&O. VSS, afebrile. Dressing to right knee C/D/I. Patient reports pain on his right knee this shift, managed with PRN medication, see MAR. Tolerating regular diet. Denies N/V.
[2024-05-13] MEDS: SENNOSIDES 1 TAB TABLET 2 TAB PO (20:42)
[2024-05-13] MEDS: APIXABAN 5 MG TABLET 2.5 MG PO (20:42)
[2024-05-14] MEDS: ACETAMINOPHEN 500 MG TABLET 1000 MG PO ×2 (01:50→06:31)
[2024-05-14 02:28] VITALS: BP 125/72; PULSE 76; RESP 18; TEMP 36.9; O2SAT 94
[2024-05-14 02:29] VITALS: BP 125/72; PULSE 76; RESP 18; TEMP 36.9; O2SAT 94
[2024-05-14] MEDS: CEFAZOLIN 2 GM in 0.9 % SODIUM CHLORIDE Mini-bag 100 ML IVPB (02:32)
[2024-05-14] MEDS: OXYCODONE 5 MG TABLET PO ×3 (02:36→08:34)
[2024-05-14] MEDS: OMEPRAZOLE 20 MG CAPSULE DR 40 MG PO (06:07)
[2024-05-14 06:10] VITALS: BP 140/78
--- NOTE | 2024-05-14 06:51 | PC.NURSE ---
End of shift [id number]: A&O, pleasant and cooperative. VSS. Placed on 1L of oxygen while sleeping d/t sats dropping to the mid 80s. Tolerating regular diet. Denies any n/v. Cwas unremarkable. Rating pain steady at a 7/10. See eMAR for interventions. Pt was able to intermittently sleep through cares. Dressing to knee c/d/i. Intermittent ice to site. Voiding adequate amounts. Using call light appropriately.
[2024-05-14 06:54] LABS: Basophils Absolute Auto 0.02 K/uL (0.00-0.30); Basophils Percent Auto 0.2 % (0.0-3.0); Eosinophils Absolute Auto 0.04 K/uL (0.00-0.50); Eosinophils Percent Auto 0.4 % (0.0-7.0); Hematocrit 37.2 % (37.0-53.0); Immature Granulocytes Abs Auto 0.02 K/uL (0.00-0.30); Immature Granulocytes Pct Auto 0.2 %; Lymphocytes Percent Auto 11.6 % (20-44); Mean Corpuscular HGB Conc 32 gm/dL (32-36); Mean Corpuscular Hemoglobin 30 pg (26-34); Mean Corpuscular Volume 92 fL (80-100); Monocytes Percent Auto 13.5 % (0.0-11.0); Neutrophils Percent Auto 74.1 % (42.0-72.0); Platelet Count* 203 K/uL (140-440); RDW Coefficient of Variation % 13.3 % (11.5-15.5); Red Blood Count 4.05 m/uL (4.30-5.90); White Blood Count* 9.55 K/uL (4.50-11.00)
[2024-05-14 06:57] LABS: Slide Review Reflex No
[2024-05-14 07:09] LABS: INR 1.01 (0.91-1.10); Prothrombin Time 13.9 Seconds; Sodium* 136 mmol/L (135-149)
[2024-05-14 07:10] LABS: Potassium* 4.2 mmol/L (3.6-5.1)
[2024-05-14 07:12] LABS: Creatinine* 0.7 mg/dL (0.5-1.5); Est. Creatinine Clearance* 69.96; Estimated Glomerular Filt Rate 99 ml/min
[2024-05-14 07:13] LABS: Blood Urea Nitrogen* 15 mg/dL (7-30)
[2024-05-14 08:02] VITALS: BP 139/78; PULSE 72; RESP 18; RESP 19; TEMP 37.2; O2SAT 97
[2024-05-14] MEDS: SENNOSIDES 1 TAB TABLET 2 TAB PO (08:23)
[2024-05-14] MEDS: APIXABAN 5 MG TABLET 2.5 MG PO (08:23)
--- NOTE | 2024-05-14 11:20 | P.ORPN_ITS ---
Subjective Subjective Time Seen by Provider: 11:00 Date Seen: 05/14/24 Principal diagnosis: Day 1 s/p right total knee arthroplasty Interval history: Daniel is doing well this morning and is resting comfortably in his recliner. Patient is dressed and eager to be discharged. present during our visit. Patient denies: chest pain, SOB, fever, chills. Admits to chronic peripheral neuropathy. Overnight, patient's O2 sats decreased to mid-80s, but responded well to 1L O2 via nasal cannula. Denies SOB this morning. C/o mild-moderate right knee pain that is well managed with oral pain medications and icing. Denies postop bowel movement. Admits to chronic constipation after a pelvic fracture injury in [year?]. Daniel explains routinely he administers a water enema. Ortho Exam Narrative Exam Narrative: Incision/Dressing: Dressing appears clean and dry. No drainage present. Mepilex intact. Right knee appears moderately swollen but supple with no obvious erythema, fluctuance or excessive warmth. No ecchymosis or erythematous streaking. Warmth around the wound is appropriate. Ice is being utilized as needed. CMS: Intact distally with 2+ Dorsalis pedis and Posterior Tibial pulses. Confirmed sensation distally. Calf: Bilateral calves are supple, with no swelling, pain, tenderness, erythema, discoloration or coolness to the touch. Constitutional: Patient is alert and oriented x3. Patient is in no acute distress and converses without labored breathing. Patient is able to make decisions and demonstrates good insight. Patient is pleasant and cooperative. Affect is full range and appropriate for the circumstances. Const Vital Signs, click to edit/add: Vital Signs - 24 hr 05/13/24 11:48 05/13/24 12:20 05/13/24 14:50 Temperature 98.2 F 98.0 F Pulse Rate 84 84 73 Pulse Rate [Left Pulse Oximeter] Respiratory Rate 20 20 14 Blood Pressure 154/85 H 156/86 H 103/67 Blood Pressure [Left Arm] Blood Pressure [Right Arm] Pulse Oximetry 94 95 92 Oxygen Delivery Method Room Air Nasal Cannula Room Air Oxygen Flow Rate 3 05/13/24 14:55 05/13/24 15:00 05/13/24 15:05 Temperature Pulse Rate 77 70 69 Pulse Rate [Left Pulse Oximeter] Respiratory Rate 16 18 16 Blood Pressure 100/70 105/78 109/65 Blood Pressure [Left Arm] Blood Pressure [Right Arm] Pulse Oximetry 93 92 94 Oxygen Delivery Method Oxygen Flow Rate 05/13/24 15:15 05/13/24 15:20 05/13/24 15:30 Temperature 96.8 F L 96.5 F L Pulse Rate 65 65 65 Pulse Rate [Left Pulse Oximeter] Respiratory Rate 14 16 16 Blood Pressure 106/70 98/85 105/67 Blood Pressure [Left Arm] Blood Pressure [Right Arm] Pulse Oximetry 92 94 94 Oxygen Delivery Method Nasal Cannula Oxygen Flow Rate 1 05/13/24 15:30 05/13/24 15:45 05/13/24 16:00 Temperature 96.5 F L 96.7 F L 96.9 F L Pulse Rate 65 69 70 Pulse Rate [Left Pulse Oximeter] Respiratory Rate 16 16 16 Blood Pressure 105/67 106/73 114/78 Blood Pressure [Left Arm] Blood Pressure [Right Arm] Pulse Oximetry 94 94 94 Oxygen Delivery Method Nasal Cannula Nasal Cannula Room Air Oxygen Flow Rate 1 1 05/13/24 16:15 05/13/24 16:30 05/13/24 17:00 Temperature 97.0 F L 97.2 F L 97.4 F L Pulse Rate 73 72 Pulse Rate [Left Pulse Oximeter] Respiratory Rate 16 16 16 Blood Pressure 122/84 119/76 124/82 Blood Pressure [Left Arm] Blood Pressure [Right Arm] Pulse Oximetry 93 93 93 Oxygen Delivery Method Room Air Room Air Room Air Oxygen Flow Rate 05/13/24 17:21 05/13/24 17:30 05/13/24 18:30 Temperature 97.4 F L 97.4 F L 97.4 F L Pulse Rate 75 Pulse Rate [Left Pulse Oximeter] 72 73 Respiratory Rate 16 18 16 Blood Pressure 123/77 Blood Pressure [Left Arm] 124/82 147/95 H Blood Pressure [Right Arm] Pulse Oximetry 93 92 93 Oxygen Delivery Method Room Air Room Air Room Air Oxygen Flow Rate 05/13/24 18:30 05/13/24 19:00 05/13/24 19:30 Temperature 97.4 F L 97.4 F L 97.4 F L Pulse Rate 73 86 Pulse Rate [Left Pulse Oximeter] Respiratory Rate 16 16 18 Blood Pressure 147/95 H 122/92 H Blood Pressure [Left Arm] 122/92 H Blood Pressure [Right Arm] Pulse Oximetry 93 95 93 Oxygen Delivery Method Room Air Room Air Nasal Cannula Oxygen Flow Rate 1 05/13/24 20:00 05/13/24 21:00 05/13/24 23:00 Temperature 97.7 F Pulse Rate 79 81 Pulse Rate [Left Pulse Oximeter] 84 Respiratory Rate 18 18 16 Blood Pressure 112/75 130/80 Blood Pressure [Left Arm] 113/70 Blood Pressure [Right Arm] Pulse Oximetry 93 94 92 Oxygen Delivery Method Nasal Cannula Room Air Nasal Cannula Oxygen Flow Rate 1 1 05/13/24 23:00 05/13/24 23:00 05/14/24 02:28 Temperature 97.7 F 98.5 F Pulse Rate Pulse Rate [Left Pulse Oximeter] 84 76 Respiratory Rate 16 16 18 Blood Pressure Blood Pressure [Left Arm] 113/70 125/72 Blood Pressure [Right Arm] Pulse Oximetry 92 92 94 Oxygen Delivery Method Nasal Cannula Nasal Cannula Nasal Cannula Oxygen Flow Rate 1 1 1 05/14/24 02:29 05/14/24 06:10 05/14/24 08:02 Temperature 98.5 F 99 F Pulse Rate Pulse Rate [Left Pulse Oximeter] 76 72 Respiratory Rate 18 19 Blood Pressure Blood Pressure [Left Arm] 125/72 140/78 H Blood Pressure [Right Arm] 139/78 Pulse Oximetry 94 97 Oxygen Delivery Method Nasal Cannula Room Air Oxygen Flow Rate 1 05/14/24 08:02 05/14/24 08:02 05/14/24 08:02 Temperature 99 F Pulse Rate Pulse Rate [Left Pulse Oximeter] 72 72 Respiratory Rate 18 19 18 Blood Pressure Blood Pressure [Left Arm] Blood Pressure [Right Arm] 139/78 Pulse Oximetry 97 97 Oxygen Delivery Method Room Air Room Air Oxygen Flow Rate Assessment and Plan Assessment and plan (1) Status post total right knee replacement: Problem details: DOS: 05/13/24, Dr. Rodriguez Status: Acute Assessment and Plan: - Complete 23 hour perioperative antibiotics. - PT/OT consults for education and assistance. Outpatient PT scheduled at [facility]. - Weight bear as tolerated with a walker for assistance. - Prescribed analgesics as needed. Patient is content with current narcotic medications. Minimize narcotic pain medication use; wean off and discontinue as soon as possible. - DVT prophylaxis: Eliquis 5 mg BID. Also, frequent ambulation and ankle pumps when sedentary. Hospitalist placed a referral to Hematology to evaluate ocean transportation intermediary coagulation status and whether or not Eliquis is recommended halfway. - Social consult for discharge planning. - Anticipate patient will be discharged to home in the next hour if the patient remains medically stable, pain is controlled and is safe with ambulation. - Return to clinic in 1 week for a wound check with Janelle Hinson PA-C. Mepilex dressing will be removed at this appointment. Remove sooner if dressing becomes saturated. - Return to clinic in [address] Rodriguez. - Phone Orthopedics with any questions or concerns. [phone]
--- NOTE | 2024-05-14 12:31 | PC.NURSE ---
Discharge: Patient pleasant and cooperative. Patient vitally stable, lungs clear, BS WNL, IV removed, catheter intact. Patient rates right knee pain at most 3/10, 10 mg of oxy given once. Patient right knee dressing C/D/I. Patient SBA with walker. Patient tolerating regular diet and urinating well. Patient had no further questions regarding discharge information. Patient left the floor by wheelchair to home at 1201.
== END 2024-05-14 12:01 | disposition home or self-care (01) ==
LOC: OR 11:02 → MEDSURG 11:03
PROVIDERS: PCP Family Medicine; Visit Provider Orthopaedic Surgery
PROC: (CPT 27447; principal; 2024-05-13 13:00)
DX: M17.11 Unilateral primary osteoarthritis, right knee (principal); G89.18 Other acute postprocedural pain; Z68.37 Body mass index [BMI] 37.0-37.9, adult; R73.09 Other abnormal glucose; Z86.711 Personal history of pulmonary embolism; Z86.718 Personal history of other venous thrombosis and embolism; D68.52 Prothrombin gene mutation; Z79.01 Long term (current) use of anticoagulants; G89.29 Other chronic pain; D68.51 Activated protein C resistance; K21.00 Gastro-esophageal reflux disease with esophagitis, without bleeding; E78.5 Hyperlipidemia, unspecified; F10.90 Alcohol use, unspecified, uncomplicated; M10.9 Gout, unspecified; G62.9 Polyneuropathy, unspecified
CPT/HCPCS: 27447; 01402; 36415; 64447; 64454; 73560; 76942; 82565; 84132; 84295; 84520; 85025; 85610; 97110; 97116; 97161; 97165; 99100; A9270; C1776; J0665; J0690; J1100; J1171; J2250; J2405; J2704; J3010; J7030; J7120

== ENCOUNTER 2024-05-19 15:16 | Outpatient (CLI) | payer MEDICARE, BC, SELFPAY ==
--- NOTE | 2024-05-19 15:00 | CRLHL7_ITS ---
For Patients: As a result of the Century Cures Act, medical imaging exams and procedure reports are released immediately into your electronic medical record. You may view this report before your referring provider. If you have questions, please contact your health care provider. INDICATION: Pain and swelling status post right knee arthroplasty. COMPARISON: None available. TECHNIQUE: Static and compression grayscale and spectral (including color) Doppler ultrasound of the right lower extremity. FINDINGS: Deep veins: Decreased caliber and echogenic noncompressible occlusive intraluminal thrombus are consistent with chronic DVT involving the popliteal vein and 1 of 2 posterior tibial veins. The imaged right common femoral, deep femoral, superficial femoral, peroneal and contralateral left common femoral veins are otherwise patent and free of clot. Superficial veins: The imaged right great saphenous vein is patent and free of clot. Extravascular findings: No significant incidental findings. IMPRESSION: Decreased caliber and echogenic noncompressible occlusive intraluminal thrombus are consistent with chronic DVT involving the popliteal vein and 1 of 2 posterior tibial veins. Otherwise, no evidence of acute DVT in the right lower extremity. Dictated by Walt House MD @ 05/19/2024 4:17:45 PM (Electronically Signed)
== END 2024-05-19 15:17 | disposition home or self-care (01) ==
LOC: US 15:20
PROVIDERS: PCP Family Medicine; Visit Provider Physician Assistant Surgical
DX: M25.561 Pain in right knee (principal); I82.531 Chronic embolism and thrombosis of right popliteal vein; M79.89 Other specified soft tissue disorders; Z96.651 Presence of right artificial knee joint
CPT/HCPCS: 93971; 99283

== ENCOUNTER 2024-05-19 16:14 | Emergency (ER) | payer MEDICARE, BC, SELFPAY ==
[2024-05-19 16:37] VITALS: BP 114/73; PULSE 87; RESP 18; TEMP 36.5; O2SAT 97; BMI 36.6
--- NOTE | 2024-05-19 18:16 | ED_ITS ---
HPI - General Adult General Date Seen: 05/19/24 Chief complaint: Lower Extremity Swelling Stated complaint: DVT Time Seen by Provider: 05/19/24 17:14 Source: patient Mode of arrival: ambulatory Limitations: no limitations History of Present Illness HPI narrative: Patient is a 73-year-old male with 3 previous DVTs and a recent right knee surgery on the of this month presenting to the emergency department for a not a DVT. He is supposed to be on Eliquis 2.5 twice a day prior to the surgery but states he only took it in the morning and not at night. After his surgery he was started on 5 mg twice a day he is adamant he is taking it correctly. He has been noticing more swelling than expected and has seen Orthopedics for this. They sent him for an ultrasound outpatient. It was positive and he was sent to the emergency department. Patient denies chest pain, shortness of breath, lightheadedness, dizziness, weakness, numbness, abdominal pain. No other concerns noted. Related Data Home Medications ?Medication ?Instructions ?Recorded ?Confirmed acetaminophen 650 mg 650 mg PO Q8H PRN 04/09/24 05/19/24 tablet,extended release allopurinol 100 mg tablet 300 mg PO DAILY 04/09/24 05/19/24 duloxetine 60 mg capsule,delayed 60 mg PO DAILY 04/09/24 05/19/24 release pantoprazole 40 mg tablet,delayed 40 mg PO DAILY 04/09/24 05/19/24 release cholecalciferol (vitamin D3) 50 50 mcg PO QDAY 05/19/24 05/19/24 mcg (2,000 unit) capsule diphenhydramine HCl 25 mg capsule 25 mg PO BID PRN 05/19/24 05/19/24 (Allergy Relief (diphenhydramine)) multivitamin (Multiple Vitamins 1 tab PO QDAY 05/19/24 05/19/24 tablet) Previous Rx's ?Medication ?Instructions ?Recorded apixaban 5 mg tablet (Eliquis) 5 mg PO BID #60 tabs 05/14/24 apixaban 5 mg (74 tabs) tablets in 5 mg PO BID #74 ea 05/19/24 a dose pack (Eliquis DVT-PE Treat 30D Start) oxycodone 5 mg tablet 5 mg PO Q4-6H PRN Pain #30 tabs 05/19/24 Allergies Allergy/AdvReac Type Severity Reaction Status Date / Time iodine Allergy Severe throat Verified 05/19/24 16:40 swelling shellfish derived AdvReac Severe Anaphylaxis Verified 05/19/24 16:40 lorazepam AdvReac hallucinati Verified 05/19/24 16:40 ons Review of Systems Narrative: Pertinent systems reviewed and were negative unless stated in HPI PFSH PFSH Medical History Prediabetes (04/21/24) ?R73.03 - Prediabetes (ICD-10) Noncompliance with medications (06/10/19) ?Z91.148 - Patient's other noncompliance with medication regimen for other reason (ICD-10) Ventral hernia with obstruction, without gangrene (08/15/17) ?K43.6 - Other and unspecified ventral hernia with obstruction, without gangrene (ICD-10) Prothrombin gene mutation (10/01/18) ?D68.52 - Prothrombin gene mutation (ICD-10) Pes anserinus tendinitis of right lower extremity (01/31/19) ?M76.891 - Other specified enthesopathies of right lower limb, excluding foot (ICD-10) Pelvic fracture (10/28/07) ?S32.9XXA - Fracture of unspecified parts of lumbosacral spine and pelvis, initial encounter for closed fracture (ICD-10) Left nephrolithiasis (08/15/17) ?N20.0 - Calculus of kidney (ICD-10) Hyperlipidemia (07/02/22) ?E78.5 - Hyperlipidemia, unspecified (ICD-10) Gastroesophageal reflux disease with esophagitis ?K21.00 - Gastro-esophageal reflux disease with esophagitis, without bleeding (ICD-10) Failure of outpatient treatment (08/15/17) ?Z78.9 - Other specified health status (ICD-10) Factor 5 Leiden mutation, heterozygous (09/27/23) ?D68.51 - Activated protein C resistance (ICD-10) Dvt femoral (deep venous thrombosis) (05/05/05) ?I82.419 - Acute embolism and thrombosis of unspecified femoral vein (ICD-10) Chronic pain of right knee (01/31/19) ?M25.561 - Pain in right knee (ICD-10) ?G89.29 - Other chronic pain (ICD-10) Chronic pain disorder (06/15/16) ?G89.4 - Chronic pain syndrome (ICD-10) B12 deficiency (07/08/17) ?E53.8 - Deficiency of other specified B group vitamins (ICD-10) Arthritis of right knee (01/31/19) ?M17.11 - Unilateral primary osteoarthritis, right knee (ICD-10) Abnormal glucose (09/27/23) ?R73.09 - Other abnormal glucose (ICD-10) Alcohol use disorder ?F10.90 - Alcohol use, unspecified, uncomplicated (ICD-10) Gout ?M10.9 - Gout, unspecified (ICD-10) Personal history of PE (pulmonary embolism) ?Z86.711 - Personal history of pulmonary embolism (ICD-10) Unspecified closed fracture of pelvis ?S32.9XXA - Fracture of unspecified parts of lumbosacral spine and pelvis, initial encounter for closed fracture (ICD-10) Urethral injury ?S37.30XA - Unspecified injury of urethra, initial encounter (ICD-10) Colitis ?K52.9 - Noninfective gastroenteritis and colitis, unspecified (ICD-10) Post-traumatic seroma ?T79.2XXA - Traumatic secondary and recurrent hemorrhage and seroma, initial encounter (ICD-10) Abnormal glucose ?R73.09 - Other abnormal glucose (ICD-10) Chronic pain of right knee ?M25.561 - Pain in right knee (ICD-10) ?G89.29 - Other chronic pain (ICD-10) Prothrombin gene mutation ?D68.52 - Prothrombin gene mutation (ICD-10) Failure of outpatient treatment ?Z78.9 - Other specified health status (ICD-10) Chronic pain disorder ?G89.4 - Chronic pain syndrome (ICD-10) Left nephrolithiasis ?N20.0 - Calculus of kidney (ICD-10) Pelvic fracture ?S32.9XXA - Fracture of unspecified parts of lumbosacral spine and pelvis, initial encounter for closed fracture (ICD-10) Pes anserinus tendinitis of right lower extremity ?M76.891 - Other specified enthesopathies of right lower limb, excluding foot (ICD-10) Acquired varus deformity knee ?M21.169 - Varus deformity, not elsewhere classified, unspecified knee (ICD- 10) Arthritis of right knee ?M17.11 - Unilateral primary osteoarthritis, right knee (ICD-10) Factor 5 Leiden mutation, heterozygous ?D68.51 - Activated protein C resistance (ICD-10) Ventral hernia with obstruction, without gangrene ?K43.6 - Other and unspecified ventral hernia with obstruction, without gangrene (ICD-10) Gastroesophageal reflux disease with esophagitis ?K21.00 - Gastro-esophageal reflux disease with esophagitis, without bleeding (ICD-10) Hyperlipidemia ?E78.5 - Hyperlipidemia, unspecified (ICD-10) B12 deficiency ?E53.8 - Deficiency of other specified B group vitamins (ICD-10) Dvt femoral (deep venous thrombosis) ?I82.419 - Acute embolism and thrombosis of unspecified femoral vein (ICD-10) Surgical History History of arthroplasty of left knee (01/31/19) ?Z96.652 - Presence of left artificial knee joint (ICD-10) History of arthroplasty of right knee (05/13/24) ?Z96.651 - Presence of right artificial knee joint (ICD-10) History of laparoscopic cholecystectomy ?Z90.49 - Acquired absence of other specified parts of digestive tract (ICD- 10) History of partial surgical removal of colon ?Z90.49 - Acquired absence of other specified parts of digestive tract (ICD- 10) History of cataract removal with insertion of prosthetic lens ?Z98.49 - Cataract extraction status, unspecified eye (ICD-10) ?Z96.1 - Presence of intraocular lens (ICD-10) History of appendectomy ?Z90.49 - Acquired absence of other specified parts of digestive tract (ICD- 10) History of arthroplasty of left knee ?Z96.652 - Presence of left artificial knee joint (ICD-10) History of total left knee replacement (02/11/13) ?Z96.652 - Presence of left artificial knee joint (ICD-10) Social History What is your current living situation?: I presently have a place to live In the past 12 months, utilities in danger of being shut off: no In past 12 months, lack of transportation kept you from medical appts, meetings, work, or getting things needed for daily living: no In the past 12 mos, have been you worried that your food would run out before you had money to buy more?: never true In the past 12 mos, the food you bought just didn't last and you didn't have money to buy more?: never true Smoking Status: Never smoker How often do you have a drink containing alcohol: 4 or more times a week Alcohol type: beer and hard liquor How many standard drinks containing alcohol do you have on a typical day: 3 or 4 AUDIT-C Alcohol total score: 5 Non-prescribed substance use: denies use Caffeine: Yes How often does anyone, including family, friends and others, physically hurt you : never How often does anyone, including family, friends and others, insult or talk down to you: never How often does anyone, including family, friends and others, threaten you with harm: never How often does anyone, including family, friends and others, scream or curse at you: never service: No Exam Narrative: Exam Narrative: Const: Well-nourished, Well-developed, in now distress Eyes: PERRL, no conjunctival injection, and symmetrical lids HENT: Atraumatic external nose and ears. Moist mucous membranes. Neck: Symmetric, trachea midline, No thyromegaly. CVS: RRR, No murmurs or gallops. Peripheral pulses 2+ and equal in all extremities RESP: Unlabored respiratory effort. Clear to auscultation bilaterally. GI: Nontender/Nondistended, No rebound or guarding. MSK:Extremities w/o deformity, Normal Active ROM, notable swelling to right lower extremity with a well-healing surgical site Skin: Warm, Dry. No rashes or lesions. Neuro: Normal Muscle tone, No focal neurological deficits. Psych: Awake, Alert, & Oriented x3. Appropriate mood and affect. Const: Vital Signs, click to edit/add: Vital Signs - 24 hr 05/19/24 16:37 Temperature 97.7 F Pulse Rate [Right Pulse Oximeter] 87 Respiratory Rate 18 Blood Pressure [Ri ght Upper Arm] 114/73 Pulse Oximetry 97 Oxygen Delivery Me thod Room Air Course Vital Signs Vital signs: Initial Vital Signs Temperature 97.7 F 05/19/24 16:37 Temperature Source Temporal Artery Scan 05/19/24 16:37 Pulse Rate 87 05/19/24 16:37 Pulse Rhythm Regular 05/19/24 16:37 Pulse Strength 3+ Normal 05/19/24 16:37 Respiratory Rate 18 05/19/24 16:37 Blood Pressure 114/73 05/19/24 16:37 Blood Pressure Mean 86 05/19/24 16:37 Blood Pressure Position Sitting 05/19/24 16:37 Pulse Oximetry 97 05/19/24 16:37 Oxygen Delivery Method Room Air 05/19/24 16:37 Vital Signs Temperature 97.7 F 05/19/24 16:37 Pulse Rate 87 05/19/24 16:37 Respiratory Rate 18 05/19/24 16:37 Blood Pressure 114/73 05/19/24 16:37 Pulse Oximetry 97 05/19/24 16:37 Oxygen Delivery Method Room Air 05/19/24 16:37 Temperature 97.7 F 05/19/24 16:37 Pulse Rate 87 05/19/24 16:37 Respiratory Rate 18 05/19/24 16:37 Blood Pressure 114/73 05/19/24 16:37 Pulse Oximetry 97 05/19/24 16:37 Oxygen Delivery Method Room Air 05/19/24 16:37 Medical Decision Making MDM Narrative Medical decision making narrative: Patient is a 73-year-old male presenting for a DVT to his right lower extremity. He states is the 1st DVT he has had where he has been on blood thinners. Previous was on warfarin though started Eliquis about 8-10 years ago he states. Has not been taking it as directed up until 5 days ago. Ultrasound was read by the radiologist and while initially they thought it was a chronic DVT on reviewing the images a 2nd time is decided that is most likely an acute DVT. He is having no signs of a PE at this time. 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 Due to the patient having new swelling he does recommend treating this as an acute DVT. Recommends 10 mg twice a day for 7 days followed by 5 mg twice a day. Patient is agreeable to this plan. Discharge Plan Discharge Clinical Impression: DVT (deep venous thrombosis) Qualifiers: DVT location: lower extremity Affected thrombotic vein of extremity: popliteal Chronicity: acute Laterality: right Qualified Code(s): I82.431 - Acute embolism and thrombosis of right popliteal vein Patient Disposition: Home, Self-Care Condition: Stable Instructions: Deep Vein Thrombosis (DC) Additional Instructions: Make sure to keep your previously scheduled Hematology appointment next week. Start taking Eliquis 10 mg in the morning and at night for the next 7 days. After that start taking it to 5 mg in morning 5 mg at night. Return for new or worsening symptoms. Prescriptions: New Eliquis DVT-PE Treat 30D Start 5 mg (74 tabs) tablets,dose pack 5 mg PO BID Qty: 74 0RF Rx Instructions: take 10 mg twice daily for for 7 days then 5 mg twice daily the her after that No Action cholecalciferol (vitamin D3) 50 mcg (2,000 unit) capsule 50 mcg PO QDAY multivitamin [Multiple Vitamins] Tablet 1 tab PO QDAY diphenhydramine HCl [Allergy Relief(diphenhydramin)] 25 mg capsule 25 mg PO BID PRN oxycodone 5 mg tablet 5 mg PO Q4-6H MDD 6 tabs per day PRN (Reason: Pain) Qty: 30 0RF Rx Instructions: Minimize use. Discontinue as soon as possible duloxetine 60 mg capsule,delayed release(DR/EC) 60 mg PO DAILY pantoprazole 40 mg tablet,delayed release (DR/EC) 40 mg PO DAILY acetaminophen 650 mg tablet extended release 650 mg PO Q8H PRN allopurinol 100 mg tablet 300 mg PO DAILY Eliquis 5 mg tablet 5 mg PO BID Qty: 60 2RF Follow Up/Referrals: Juanis Carrero MANAGER [facility] [Primary Care Provider] - Stand Alone Forms: Postini Info Instructions
--- OUTSIDE RECORDS SUMMARY | 2024-05-19 23:49 | XMS_ITS | Clinical Summary ---
Author Organization [employer] Address [place], [place] [address] Care Team Providers Care Publications Sales Representative Name Role Phone Pcp, No Primary Care Provider Unavailabl e Allergies Active Allergy Reactions Criticality Noted Date Comments Iodine 05/05/2005 Lorazepam Hallucinations 07/21/2009 (ativan) hallucinations Shellfish Containing Products Anaphylaxis High 05/03/2005 mild reaction to shrimp Medications multivitamin (MVI) tablet Take 1 tablet. by mouth continuous as needed (pain). 0 7 Active acetaminophen SR (Tylenol 8 Hour) 650 mg Extended-Releas e tabletIndicatio ns:Chronic abdominal pain Take 1 Tablet (650 mg) by mouth every 8 hours if needed. Max acetaminophen dose: 4000mg in 24 hrs. 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 90 Tablet 4 4 Active Additional Information Patient taking differently:2.5 mg OralDAILY, Reported on 05/12/2024 allopurinoL (ZYLOPRIM) 100 mg tabletIndicatio ns:Elevated uric acid in blood Take 2 Tablets (200 mg) by mouth once daily. take 100mg by mouth once daily for 2 weeks; then increase to 200mg for 2 weeks; then increase to 300mg 180 Tablet 1 4 Active DULoxetine (CYMBALTA) 60 mg Delayed-release capsuleIndicati ons:Chronic pain disorder,Neurop athy TAKE ONE CAPSULE BY MOUTH EVERY DAY START AFTER 30MG CAPSULE 90 Capsule 1 4 Active cholecalciferol (Vitamin D-3) 2,000 unit capsule Take 1 Capsule (2,000 units) by mouth once daily. 4 Active diphenhydrAMINE (BENADRYL) 25 mg capsule pt taking twice daily 4 Active pantoprazole (PROTONIX) 40 mg delayed-release tabletIndicatio ns:Gastroesopha geal reflux disease, unspecified whether esophagitis present Take 1 Tablet (40 mg) by mouth once daily. 30 Tablet 2 4 Active Active Problems Problem Noted Date Diagnosed Date [...] right superficial femoral/popliteal clot on u/s at [place] 05/03/05 Gastroesophageal reflux disease with esophagitis Resolved [...] to the patient. Hilda Jett MD, FACP, [facility], [facility] Vascular Medicine Post-traumatic seroma 04/13/20092023 Colitis 12/08/2007 03/18/2024 Urethral injury 10/28/2007 03/18/2024 Overview (03/18/2024): disruption CHOLELITHIASIS 05/05/2005 05/15/2016 RUQ PAIN 05/05/2005 05/15/2016 HYPOXIA 05/05/2005 05/15/2016 Chronic pain disorder 2023 Overview (07/23/2019): Regular tramadol use,#120 should last 30 days. Strict. Encounter for screening colonoscopy 03/18/2024 Encounters Date Type Department Care Team Description 05/19/2024 Telephone [facility] [address] [place] [address] Amish Mcfadden, 05/19/2024 Telephone [facility] [address] [place] [address] Ginette Dee NP Appointment 05/15/[address] [phone] Juanis Carrero NP Questions (Referral Request ) 05/13/2024 Orders Only [facility] Scanner 1 scan: (1-Ord) [place], XR KNEE RT 2V, 05/13/2024 05/12/2024 10:50 AM [employer] Office Visit [facility] [address] [place] [phone] Juanis Carrero NP Follow Up (Before surgery tomorrow ) 05/12/2024 Travel 04/29/[address] [facility] [address] [place] [phone] Juanis Carrero NP Medication Management (celecoxib (CELEBREX) ) 04/22/2024 10:15 AM [employer] Orders Only [address] [phone] Faiza Degrooti Lab 04/21/2024 5:00 PM [employer] Office Visit [facility] [address] [place] [phone] Dalila Martinez NP Diarrhea (Liquid stools, cramping stomach x 4 days.) 04/21/2024 Travel 04/21/[address] [place] [address] Juanis Carrero NP 04/21/2024 Nurse Triage [address] [address] Juanis Carrero NP Diarrhea 04/18/[address] [phone] Juanis Carrero NP Orthopedic Referral (Dr. Rodriguez- [facility]) 04/15/[address] [place] [address] Juanis Carrero NP Lab 04/15/[address] [address] Juanis Carrero NP 04/14/2024 9:10 AM [employer] Office Visit [address] [place] [address] Juanis Carrero NP Pre-Op Exam (05/13/24- right knee placement, [facility]); Form (handicap parking) 04/14/[address] [place] [address] Juanis Carrero NP 04/14/2024 Orders Only [address] [place] [address] Juanis Carrero, ED 1 scan: (1-Ord) 04/14/2024 04/14/2024 Travel 04/03/[address] [facility] [address] [facility] [place] [address] Juanis Carrero, ED Error-please disregard 03/18/2024 10:20 AM [employer] Ancillary Procedure [address] [address] 03/18/2024 10:15 AM [employer] Ancillary Procedure [address] [phone] 03/18/2024 8:45 AM [employer] Office Visit [address] [place] [address] Juanis Carrero, ED Pain (right knee, right hip, shoulders, arms, wrists); Eye Problem (watery eyes more often, wound under eye); Acid Indigestion (vomiting); Sinus Problem (morning phlegm/sinus issues) 03/18/[address] 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 Not on file Not on file Obstetrics History Last Filed Vital Signs Vital Sign Reading Time Taken Comments Blood Pressure 126/74 05/12/2024 10:54 AM [employer] Pulse 78 05/12/2024 10:54 AM [employer] Temperature 36.4 C (97.5 F) 04/21/2024 5:41 PM [employer] Respiratory Rate 20 04/21/2024 5:41 PM [employer] Oxygen Saturation 94% 04/21/2024 5:41 PM [employer] Inhaled Oxygen Concentration - - Weight 114.9 kg (253 lb 3.2 oz) 025 10:54 AM [employer] Height 177 cm (5' 9.69) 05/29/2023 10: 59 AM [employer]ER Body Mass Index 36.66 05/29/2023 10:59 AM [employer]ER Plan of Treatment Upcoming Encounters Date Type Department Care Team (Late st Contact Info) Description 06/16/2024 2:30 PM [employer] Office Visit [facility] [address] [place] [address] Sun Heck MD [address] [place] [address] Health Maintenance Due Date Last Done Comments [...] Procedure Name Priority Date/Time Associated Diagnosis Comments SCAN-RADIOLOGY REPORT 05/13/2024 12:00 AM [employer] STOOL PATHOGEN MULTIPLEX PCR PANEL Routine 04/22/2024 5:00 AM [employer] Acute diarrhea CBC WITH AUTO DIFFERENTIAL Routine 04/14/2024 10:39 AM [employer] Factor 5 Leiden mutation, heterozygous (HC) Deep vein thrombosis (DVT) of femoral vein, unspecified chronicity, unspecified laterality (HC) COMP METABOLIC PANEL Routine 04/14/2024 10:39 AM [employer] Factor 5 Leiden mutation, heterozygous (HC) Deep vein thrombosis (DVT) of femoral vein, unspecified chronicity, unspecified laterality (HC) URIC ACID Routine 04/14/2024 10:39 AM [employer] Gout, unspecified cause, unspecified chronicity, unspecified site EKG 12 LEAD Routine 04/14/2024 12:00 AM [employer]ER Pre-op exam HEMOGLOBIN A1C Add On 04/14/2024 12:00 AM [employer] Elevated blood sugar XR HIP 2 OR 3 VIEWS W PELVIS RIGHT Routine 03/18/2024 10:32 AM [employer] Hip pain, right XR KNEE WB 1 VIEW AP BILATERAL AND 2 VIEWS RIGHT STAT 03/18/2024 10:31 AM [employer] Arthritis of right knee LIPID PANEL W REFLEX MEASURED LDL Routine 05/16/2023 9:35 AM [employer] Hyperlipidemia, unspecified hyperlipidemia type COLONOSCOPY 07/20/2021 10:54 AM CDT ANTI HCV Routine 06/10/2018 10:57 AM [employer]ER Encounter for HCV screening test for high risk patient from Last 3 Months or Most Recently Relevant to Health Maintenance Results * SCAN-RADIOLOGY REPORT (05/13/2024 12:00 AM [employer]ER) Anatomical Region Laterality Modality Other us Scanner OTHER Final Result * (ABNORMAL) STOOL PATHOGEN MULTIPLEX PCR PANEL (04/22/2024 5:00 AM [employer]ER) Campylobacter NOT Detected NOT Detected 04/23/2024 6:06 PM [employer]ER [facility] Salmonella NOT Detected NOT Detected 04/23/2024 6:06 PM [employer] [facility] Shigella NOT Detected NOT Detected 04/23/2024 6:06 PM [employer] [facility] Vibrio NOT Detected NOT Detected 04/23/2024 6:06 PM [employer]ER [facility] Yersinia Enterocolitica NOT Detected NOT Detected 04/23/2024 6:06 PM [employer]ER [facility] Shiga Toxin 1 NOT Detected NOT Detected 04/23/2024 6:06 PM [employer]ER [facility] Shiga Toxin 2 NOT Detected NOT Detected 04/23/2024 6:06 PM [employer]ER [facility] Norovirus Detected(A) NOT Detected 04/23/2024 6:06 PM [employer]ER [facility] Rotavirus NOT Detected NOT Detected 04/23/2024 6:06 PM [employer]ER [facility] Stool STOOL SPECIMEN / Unknown Non-Blood / Unknown 04/22/2024 5:00 AM [employer]ER 04/22/2024 10:18 AM [employer]ER Narrative [facility] - 04/23/2024 6:06 PM [employer]ER This test is a Culture Independent Diagnostic Test (CIDT) therefore isolates are not available for susceptibility testing. Antibiotic treatment is often contraindicated and may be detrimental in cases of enteric infections, thus routine susceptibility testing is not recommended. us Dalila Martinez NP MICROBIOLOGY Final Re sult [facility] [address] [place] [address], * CBC AND DIFFERENTIAL (04/14/2024 10:39 AM [employer]ER) Pathologist [facility] WHITE BLOOD CELL COUNT 7.2 3.8 - 10.8 Thousand/u L [facility] RED BLOOD CELL COUNT 4.65 4.20 - 5.80 Million/uL [facility] HEMOGLOBIN 14.4 13.2 - 17.1 g/dL [facility] HEMATOCRIT 41.9 38.5 - 50.0 % [facility] MCV 90.1 80.0 - 100.0 fL [facility] MCH 31.0 27.0 - 33.0 pg [facility] MCHC 34.4 32.0 - 36.0 [...] 302 140 - 400 Thousand/u L [facility] MPV 9.4 7.5 - 12.5 [...] BLOOD SPECIMEN / Unknown 04/14/2024 10:39 AM [employer]ER 04/14/2024 10:40 AM [employer]ER Juanis Carrero NP HEMATOLOGY Final Result Performing Organization Address City/[facility]/ZIP Co de Phone Number [facility] [address] [place] [address], [place] [phone] [facility] [address] [place] [address] * URIC ACID (04/14/2024 10:39 AM [employer]SE PLAYER) [facility] URIC ACID 4.2 4.0 - 8.0 mg/dL [facility] Comment: Therapeutic target for gout patients: <6.0 mg/dL Blood BLOOD SPECIMEN / Unknown 04/14/2024 10:39 AM [employer]ER 04/14/2024 10:40 AM [employer]ER us Juanis Carrero NP CHEMISTRY Final Result [facility] [address] [facility] [place] [address], [place] [phone] [facility] [address] [facility] [place] [address] * (ABNORMAL) COMP METABOLIC PANEL (04/14/2024 10:39 AM [employer] PLAYER) [facility] GLUCOSE 125(H) 65 - 99 mg/dL [facility] Comment: Fasting reference interval For someone without known diabetes, a glucose value between 100 and 125 mg/dL is consistent with prediabetes and should be confirmed with a follow-up test. UREA NITROGEN (BUN) 17 7 - 25 mg/dL [facility] CREATININE 0.89 0.70 - 1.28 mg/dL [facility] EGFR 92 > OR = 60 mL/min/1. 73m2 [facility] BUN/CREATININE RATIO SEE NOTE: (calc) [facility] Comment: Not Reported: BUN and Creatinine are within reference range. SODIUM 139 135 - 146 mmol/L [facility] POTASSIUM 4.7 3.5 - 5.3 mmol/L [facility] CHLORIDE 105 98 - 110 [...] BLOOD SPECIMEN / Unknown 04/14/2024 10:39 AM [employer]ER 04/14/2024 10:40 AM [employer]ER Juanis Carrero NP CHEMISTRY Final Result [facility] [address] [place] [phone], [facility] [address] [place] [address] * (ABNORMAL) HEMOGLOBIN A1C (04/14/2024 12:00 AM [employer]ER) HEMOGLOBIN A1C 5.8(H) <5.7 % of total Hgb [facility] Comment: For someone without known diabetes, a [...] SPECIMEN / Unknown 04/14/2024 04/15/2024 5:35 PM [employer] Juanis Carrero NP CHEMISTRY Final Result [facility] [address] [address], [facility] [address] [place] [phone] * EKG 12 LEAD (04/14/2024 12:00 AM [employer]ER) us Juanis Carrero NP EKG ORD Final Result * XR HIP 2 OR 3 VIEWS W PELVIS RIGHT (03/18/2024 10:32 AM [employer]ER) Anatomical Region Laterality Modality HIPS, HIPR, Pelvis Computed Radi ography 03/18/2024 11:1 7 AM [employer]ER Impressions 03/18/2024 11:17 AM [employer]ER No significant change from the CT scan of 08/13/2017. Dictated by Nadege Valverde MD @ 03/18/2024 11:17:20 AM (Electronically Signed) Narrative 03/18/2024 11:17 AM [employer]ER For Patients: As a result of the [...] AND 2 VIEWS RIGHT (03/18/2024 10:31 AM [employer]ER) Anatomical Region Laterality Modality KNEES, KNEE R Computed Radiogr aphy 03/18/2024 10:3 9 AM [employer]ER Narrative 03/18/2024 10:39 AM [employer]ER For Patients: As a result of the [...] W REFLEX MEASURED LDL (05/16/2023 9:35 AM [employer]ER) CHOLESTEROL,TOTAL 202(H) 100 - 199 mg/dL 05/16/2023 10:07 AM [facility] Comment: Cholesterol, Total Reference Ranges Desirable <200 mg/dL Borderline 200-239 mg/dL High >=240 mg/dL TRIGLYCERIDES 98 <150 mg/dL 05/16/2023 10:07 AM [facility] HDL CHOLESTEROL 70 >40 mg/dL 10:07 AM [facility] NON-HDL CHOLESTEROL 132 <145 mg/dl 05/16/2023 10:07 AM [facility] CHOL/HDL RATIO 2.89 <4.50 05/16/2023 10:07 AM [facility] LDL CHOLESTEROL 112 <=130 mg/dL 05/16/2023 10:07 AM [facility] VLDL CHOLESTEROL 20 <=30 mg/dL 05/16/2023 10:07 AM [facility] PROVIDER ORDERED STATUS RANDOM 05/16/2023 10:07 AM [facility] Blood BLOOD SPECIMEN / Unknown Venipuncture / Unknown 05/16/2023 9:35 AM [employer]ER 05/16/2023 9:35 AM [employer]ER us Gage Casillas DO CHEMISTRY Final Res ult [facility] [address] [place] [address] * COLONOSCOPY (07/20/2021 10:54 AM CDT) 07/20/2021 10:5 4 AM CDT Narrative Transcriptions Taiwo Lynn MD - 07/20/2021 11:42 AM CDT Patient Name: Jarred Muñoz Procedure Date: 07/20/2021 Gender: Male Date of : 1950 Admit Type: Ambulatory Procedure: Colonoscopy Proceduralist: Taiwo Lynn [facility] Indications/Pre-Op Diagnosis: Screening for colorectal malignantneoplasm Medications: [...] ult * ANTI HCV (06/10/2018 10:57 AM [employer]ER) HEPATITIS C ANTIBODY Non-React napoleon Non-React napoleon 06/10/2018 8:03 PM [employer]ER [facility] Comment:Antibodies to HCV no t detected; does not exclude the possibility of exposure to HCV. Blood BLOOD SPECIMEN / Unknown Venipuncture / Unknown 06/10/2018 10:57 AM [employer]ER 06/10/2018 10:57 AM [employer]ER Gage Casillas DO SEND OUTS Final Res ult [facility] [address] [place] [address], from Last 3 Months or Most Recently Relevant to Health Maintenance Insurance [facility] ADVANT[employer] [place] [place] BL[place] MR PB ONLY [place] [place] BLUE HB ONLY MEDICARE PART B HB ONLY MEDICARE PART A HB ONLY [place] [id number] MEDICARE PB ONLY [place] BLUE MR PB ONLY Advance Directives * [...] 8:32 PM 05/09/2005 1:18 PM Care Teams Publications Sales Representative Relationship Specialty Start Date End Date Pcp, No . PCP - General 07/12/23
== END 2024-05-19 18:38 | disposition home or self-care (01) ==
PROVIDERS: Emergency Provider Student in an Organized Health Care Education/Training Program; PCP Family Medicine
DX: I82.431 Acute embolism and thrombosis of right popliteal vein (principal); M25.561 Pain in right knee; Z96.651 Presence of right artificial knee joint; I82.531 Chronic embolism and thrombosis of right popliteal vein; M79.89 Other specified soft tissue disorders
CPT/HCPCS: 99283

== ENCOUNTER 2024-05-24 14:56 | Emergency (ER) | payer MEDICARE, BC, SELFPAY ==
[2024-05-24] VITALS (15 sets, daily range): BP systolic 129–132; BP diastolic 67–84; PULSE 84–93; RESP 18; TEMP 36; O2SAT 92–97; BMI 35.9
--- OUTSIDE RECORDS SUMMARY | 2024-05-24 14:58 | XMS_ITS | Clinical Summary ---
Author Organization [facility] Address [place], [place] [address] Care Team Providers Care Instrumentation Fitter Name Role Phone Pcp, No Primary Care [...] to the patient. Hilda Jett MD, FACP, [facility], [facility] Vascular Medicine Post-traumatic seroma 04/13/20092023 Colitis 12/08/2007 03/18/2024 Urethral injury 10/28/2007 03/18/2024 Overview (03/18/2024): disruption CHOLELITHIASIS 05/05/2005 05/15/2016 RUQ PAIN 05/05/2005 05/15/2016 HYPOXIA 05/05/2005 05/15/2016 Chronic pain disorder 2023 Overview (07/23/2019): Regular tramadol use,#120 should last 30 days. Strict. Encounter for screening colonoscopy 03/18/2024 Encounters Date Type Department Care Team Description 05/20/2024 Telephone [facility] [address] [place] [address] Sun Heck MD Appointment 05/19/2024 Orders Only [facility] Scanner 1 scan: (1-Ord) [facility], VENOUS LE RT , 05/19/2024 05/19/2024 Orders Only [facility] Scanner 1 scan: (1-Ord) [facility], VENOUS LE RT, 05/19/2024 05/19/2024 Telephone [facility] [address] [place] [address] Amish Mcfadden DO 05/19/2024 Telephone [facility] [address] [place] [address] Ginette Dee NP Appointment 05/15/2024 Telephone [facility] [address] [place] [address] Juanis Carrero NP Questions (Referral Request ) 05/13/2024 Orders Only [facility] Scanner 1 scan: (1-Ord) [facility], XR KNEE RT 2V, 05/13/2024 05/12/2024 10:50 AM GUN PROFILER Office Visit [address] [address] Juanis Carrero NP Follow Up (Before surgery tomorrow ) 05/12/2024 Travel 04/29/[address] [address] Juanis Carrero NP Medication Management (celecoxib (CELEBREX) ) 04/22/2024 10:15 AM GUN PROFILER Orders Only [address] [address] Erika Degroot Lab 04/21/2024 5:00 PM GUN PROFILER Office Visit [facility] [address] [place] [address] Dalila Martinez NP Diarrhea (Liquid stools, cramping stomach x 4 days.) 04/21/2024 Travel 04/21/[address] [address] Juanis Carrero NP 04/21/2024 Nurse Triage [address] [address] Juanis Carrero NP Diarrhea 04/18/[address] [address] Juanis Carrero NP Orthopedic Referral (Dr. Rodriguez- [facility]) 04/15/[address] [address] Juanis Carrero NP Lab 04/15/[address] [address] Juanis Carrero NP 04/14/2024 9:10 AM GUN PROFILER Office Visit [address] [address] Juanis Carrero NP Pre-Op Exam (05/13/24- right knee placement, [facility]); Form (handicap parking) 04/14/[address] [address] Juanis Carrero NP 04/14/2024 Orders Only [address] [address] Juanis Carrero NP 1 scan: (1-Ord) 04/14/2024 04/14/2024 Travel 04/03/[address] [address] Juanis Carrero NP Error-please disregard 03/18/2024 10:20 AM GUN PROFILER Ancillary Procedure [address] [address] 03/18/2024 10:15 AM GUN PROFILER Ancillary Procedure [address] [address] 03/18/2024 8:45 AM GUN PROFILER Office Visit [address] [address] Juanis Carrero NP Pain (right knee, right hip, shoulders, arms, wrists); Eye Problem (watery eyes more often, wound under eye); Acid Indigestion (vomiting); Sinus Problem (morning phlegm/sinus issues) 03/18/[address] [address] Juanis Carrero NP 03/18/2024 Travel from Last 3 Months Immunizations Name Administration Dates Next Due COVID-19 vaccine (Pfizer-Bio NTech 30mcg/0.3mL) 12YO+ BIVALENT PF, MDV 09/14/2022 COVID-19 vaccine (Pfizer-Bio NTech 30mcg/0.3mL) 12YO+ GRACIELA-SUCROSE PF, MDV 10/03/2021 COVID-19 vaccine (InteliCloud NTech 30mcg/0.3mL) PF, MDV 02/04/2021,07/13/2020,06/22/2020 HepA-HepB (Twinrix) [...] on file Legal Sex Male 5:23 AM GUN PROFILER Gender Identity Not on file Sexual Orientation Not on file 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 Not on file Not on file Obstetrics History Last Filed Vital Signs Vital Sign Reading Time Taken Comments Blood Pressure 126/74 05/12/2024 10:54 AM GUN PROFILER Pulse 78 05/12/2024 10:54 AM GUN PROFILER Temperature 36.4 C (97.5 F) 04/21/2024 5:41 PM GUN PROFILER Respiratory Rate 20 04/21/2024 5:41 PM GUN PROFILER Oxygen Saturation 94% 04/21/2024 5:41 PM GUN PROFILER Inhaled Oxygen Concentration - - Weight 114.9 kg (253 lb 3.2 oz) 025 10:54 AM GUN PROFILER Height 177 cm (5' 9.69) 05/29/2023 10: 59 AM GUN PROFILER Body Mass Index 36.66 05/29/2023 10:59 AM GUN PROFILER Plan of Treatment Upcoming Encounters Date Type Department Care Team (Late st Contact Info) Description 06/16/2024 2:30 PM GUN PROFILER Office Visit [facility] [address] [facility] [place] [address] Sun Heck MD [address] [facility] [place] [address] Health Maintenance Due Date Last Done Comments [...] Procedure Name Priority Date/Time Associated Diagnosis Comments SCAN-ULTRASOUND REPORT 05/19/2024 12:00 AM GUN PROFILER SCAN-ULTRASOUND REPORT 05/19/2024 12:00 AM GUN PROFILER SCAN-RADIOLOGY REPORT 05/13/2024 12:00 AM GUN PROFILER STOOL PATHOGEN MULTIPLEX PCR PANEL Routine 04/22/2024 5:00 AM GUN PROFILER Acute diarrhea CBC WITH AUTO DIFFERENTIAL Routine 04/14/2024 10:39 AM GUN PROFILER Factor 5 Leiden mutation, heterozygous (HC) Deep vein thrombosis (DVT) of femoral vein, unspecified chronicity, unspecified laterality (HC) COMP METABOLIC PANEL Routine 04/14/2024 10:39 AM GUN PROFILER Factor 5 Leiden mutation, heterozygous (HC) Deep vein thrombosis (DVT) of femoral vein, unspecified chronicity, unspecified laterality (HC) URIC ACID Routine 04/14/2024 10:39 AM GUN PROFILER Gout, unspecified cause, unspecified chronicity, unspecified site EKG 12 LEAD Routine 04/14/2024 12:00 AM GUN PROFILER Pre-op exam HEMOGLOBIN A1C Add On 04/14/2024 12:00 AM GUN PROFILER Elevated blood sugar XR HIP 2 OR 3 VIEWS W PELVIS RIGHT Routine 03/18/2024 10:32 AM GUN PROFILER Hip pain, right XR KNEE WB 1 VIEW AP BILATERAL AND 2 VIEWS RIGHT STAT 03/18/2024 10:31 AM GUN PROFILER Arthritis of right knee LIPID PANEL W REFLEX MEASURED LDL Routine 05/16/2023 9:35 AM GUN PROFILER Hyperlipidemia, unspecified hyperlipidemia type COLONOSCOPY 07/20/2021 10:54 AM CDT ANTI HCV Routine 06/10/2018 10:57 AM GUN PROFILER Encounter for HCV screening test for high risk patient from Last 3 Months or Most Recently Relevant to Health Maintenance Results * SCAN-ULTRASOUND REPORT (05/19/2024 12:00 AM GUN PROFILER) Only the most recent of2 resultswithin the time period is included. Anatomical Region Laterality Modality Other us Scanner OTHER Final Result * SCAN-RADIOLOGY REPORT (05/13/2024 12:00 AM GUN PROFILER) Anatomical Region Laterality Modality Other us Scanner OTHER Final Result * (ABNORMAL) STOOL PATHOGEN MULTIPLEX PCR PANEL (04/22/2024 5:00 AM GUN PROFILER) Campylobacter NOT Detected NOT Detected 04/23/2024 6:06 PM GUN PROFILER [facility] Salmonella NOT Detected NOT Detected 04/23/2024 6:06 PM GUN PROFILER [facility] Shigella NOT Detected NOT Detected 04/23/2024 6:06 PM GUN PROFILER [facility] Vibrio NOT Detected NOT Detected 04/23/2024 6:06 PM GUN PROFILER [facility] Yersinia Enterocolitica NOT Detected NOT Detected 04/23/2024 6:06 PM GUN PROFILER [facility] Shiga Toxin 1 NOT Detected NOT Detected 04/23/2024 6:06 PM GUN PROFILER [facility] Shiga Toxin 2 NOT Detected NOT Detected 04/23/2024 6:06 PM GUN PROFILER [facility] Norovirus Detected(A) NOT Detected 04/23/2024 6:06 PM GUN PROFILER [facility] Rotavirus NOT Detected NOT Detected 04/23/2024 6:06 PM GUN PROFILER [facility] Stool STOOL SPECIMEN / Unknown Non-Blood / Unknown 04/22/2024 5:00 AM GUN PROFILER 04/22/2024 10:18 AM GUN PROFILER [facility] - 04/23/2024 6:06 PM GUN PROFILER This test is a Culture Independent Diagnostic Test (CIDT) therefore isolates are not available for susceptibility testing. Antibiotic treatment is often contraindicated and may be detrimental in cases of enteric infections, thus routine susceptibility testing is not recommended. us Dalila Martinez NP MICROBIOLOGY Final Re sult [facility] [address] [place] [address], * CBC AND DIFFERENTIAL (04/14/2024 10:39 AM GUN PROFILER) WHITE BLOOD CELL COUNT 7.2 3.8 - 10.8 Thousand/u L [facility] RED BLOOD CELL COUNT 4.65 4.20 - [...] 15 - 500 cells/uL [facility] ABSOLUTE BASOPHILS 72 0 - 200 cells/uL [facility] NEUTROPHILS 60.8 % [facility] LYMPHOCYTES 23.9 % [facility] MONOCYTES 9.5 % [facility] EOSINOPHILS 4.8 % [facility] BASOPHILS 1.0 % [facility] Blood BLOOD SPECIMEN / Unknown 04/14/2024 10:39 AM GUN PROFILER 04/14/2024 10:40 AM GUN PROFILER Juanis Carrero NP HEMATOLOGY Final Result [facility] [address] [place] [address], [email or web address] [address] [place] [address] * URIC ACID (04/14/2024 10:39 AM GUN PROFILER) Pathologist [facility] URIC ACID 4.2 4.0 - 8.0 mg/dL [email or web address] Comment: Therapeutic target for gout patients: <6.0 mg/dL Blood BLOOD SPECIMEN / Unknown 04/14/2024 10:39 AM GUN PROFILER 04/14/2024 10:40 AM GUN PROFILER Juanis Carrero NP CHEMISTRY Final Result [facility] [address] [place] [address], [email or web address] [address] [place] [address] * (ABNORMAL) COMP METABOLIC PANEL (04/14/2024 10:39 AM GUN PROFILER) [facility] GLUCOSE 125(H) 65 - 99 mg/dL [email or web address] Comment: Fasting reference interval For someone without known diabetes, a glucose value between 100 and 125 mg/dL is consistent with prediabetes and should be confirmed with a follow-up test. UREA NITROGEN (BUN) 17 7 - 25 mg/dL [facility] CREATININE 0.89 0.70 - 1.28 mg/dL [email or web address] EGFR 92 > OR = 60 mL/min/1. 73m2 [email or web address] BUN/CREATININE RATIO SEE NOTE: 6 - 22 (calc) [facility] Comment: Not Reported: BUN and Creatinine are within reference range. SODIUM 139 135 - 146 mmol/L [facility] POTASSIUM 4.7 3.5 - 5.3 mmol/L [facility] CHLORIDE 105 98 - 110 mmol/L [facility] CARBON DIOXIDE 24 20 - 32 mmol/L [facility] CALCIUM 9.3 8.6 - 10.3 mg/dL [facility] PROTEIN, TOTAL 6.6 6.1 - [...] BLOOD SPECIMEN / Unknown 04/14/2024 10:39 AM GUN PROFILER 04/14/2024 10:40 AM GUN PROFILER us Juanis Carrero NP CHEMISTRY Final Result [facility] [address] [place] [address], [email or web address] [address] * (ABNORMAL) HEMOGLOBIN A1C (04/14/2024 12:00 AM GUN PROFILER) Pathologist [facility] HEMOGLOBIN A1C 5.8(H) <5.7 % of total Hgb [facility] Comment: For someone without known [...] SPECIMEN / Unknown 04/14/2024 04/15/2024 5:35 PM GUN PROFILER us Juanis Carrero NP CHEMISTRY Final Result [facility] [address] [place] [address], [facility] [address] [place] [address] * EKG 12 LEAD (04/14/2024 12:00 AM GUN PROFILER) Juanis Carrero NP EKG ORD Final Result * XR HIP 2 OR 3 VIEWS W PELVIS RIGHT (03/18/2024 10:32 AM GUN PROFILER) Anatomical Region Laterality Modality HIPS, HIPR, Pelvis Computed Radi ography 03/18/2024 11:1 7 AM GUN PROFILER Impressions 03/18/2024 11:17 AM GUN PROFILER No significant change from the CT scan of 08/13/2017. Dictated by Nadege Valverde MD @ 03/18/2024 11:17:20 AM (Electronically Signed) Narrative 03/18/2024 11:17 AM GUN PROFILER For Patients: As a result of the [...] AND 2 VIEWS RIGHT (03/18/2024 10:31 AM GUN PROFILER) Anatomical Region Laterality Modality KNEES, KNEE R Computed Radiogr aphy 03/18/2024 10:3 9 AM GUN PROFILER Narrative 03/18/2024 10:39 AM GUN PROFILER For Patients: As a result of the [...] W REFLEX MEASURED LDL (05/16/2023 9:35 AM GUN PROFILER) CHOLESTEROL,TOTAL 202(H) 100 - 199 mg/dL 05/16/2023 10:07 AM [facility] Comment: Cholesterol, Total Reference Ranges Desirable <200 mg/dL Borderline 200-239 mg/dL High >=240 mg/dL TRIGLYCERIDES 98 <150 mg/dL 05/16/2023 10:07 AM [facility] HDL CHOLESTEROL 70 >40 mg/dL 10:07 AM [facility] NON-HDL CHOLESTEROL 132 <145 mg/dl 05/16/2023 10:07 AM [facility] CHOL/HDL RATIO 2.89 <4.50 05/16/2023 10:07 AM [facility] LDL CHOLESTEROL 112 <=130 mg/dL 05/16/2023 10:07 AM [facility] VLDL CHOLESTEROL 20 <=30 mg/dL 05/16/2023 10:07 AM [facility] PROVIDER ORDERED STATUS RANDOM 05/16/2023 10:07 AM [facility] Blood BLOOD SPECIMEN / Unknown Venipuncture / Unknown 05/16/2023 9:35 AM GUN PROFILER 05/16/2023 9:35 AM GUN PROFILER us Gage Casillas DO CHEMISTRY Final Res ult [facility] [address] [place] [address] * COLONOSCOPY (07/20/2021 10:54 AM CDT) 07/20/2021 10:5 4 AM CDT Narrative Transcriptions Taiwo Lynn MD - 07/20/2021 11:42 AM CDT Patient Name: Jarred Muñoz Procedure Date: 07/20/2021 Gender: Male Date of : 1950 Admit Type: Ambulatory Procedure: Colonoscopy Proceduralist: Taiwo Lynn [facility] Indications/Pre-Op Diagnosis: Screening for colorectal malignantneoplasm Medications: [...] ult * ANTI HCV (06/10/2018 10:57 AM GUN PROFILER) HEPATITIS C ANTIBODY Non-React napoleon Non-React napoleon 06/10/2018 8:03 PM GUN PROFILER [facility] [employer] [facility] Comment:Antibodies to HCV no t detected; does not exclude the possibility of exposure to HCV. Blood BLOOD SPECIMEN / Unknown Venipuncture / Unknown 06/10/2018 10:57 AM GUN PROFILER 06/10/2018 10:57 AM GUN PROFILER Gage Casillas DO SEND OUTS Final Res ult [facility] [address] [place] [address], [place] from Last 3 Months or Most Recently Relevant to Health Maintenance Insurance [employer] [place] [employer] [place] ONLY [place] [place] BLUE [place] ONLY MEDICARE PART B HB ONLY MEDICARE PART A HB ONLY MEDICARE PB ONLY [place] PB ONLY Advance Directives * [...] 8:32 PM 05/09/2005 1:18 PM Care Teams Instrumentation Fitter Relationship Specialty Start Date End Date Pcp, No . PCP - General 07/12/23
--- OUTSIDE RECORDS SUMMARY | 2024-05-24 14:58 | XMS_ITS | Continuity of Care Document ---
Author Organization [facility] Address [address] [address] [place] [address] Phone Care Team Providers Care Glycerine Plant Operator Name Role Phone Unavailable Unavailable Unavailable Advance Directives Directive Yes / No Effective Date File Name No Information Encounters Encounter Description Practice Location Reason(s) For Visit Diagnoses Date Provider Providers Copied on Encounter [facility], [address] [address], [place], [place], [id number], [place] tel:[phone] [facility] No Information 2200 6 No Information Family History Family Member Type Diagnosis Age At Onset No Information Payers Payer name Insurance type Covered libertarian ID Authoriza tion(s) No Information Social History Type Description Quantity Date Captured Comments Sex Male Smoking Status No Information Chief Complaint And Reason For Visit No Information Reason For Referral Reason For Referral No Information History Of Present Illness Encounter Date Complaint History Of Prese nt Illness No Information Functional Status Date Functional Assessmen t No Information Instructions Date Instruction Additional Infor mation No Information Assessments Type Assessment Date No Information Patient Care Teams Name Effective Dates (start - stop) Status Members No Information
--- NOTE | 2024-05-24 15:02 | CRLHL7_ITS ---
For Patients: As a result of the Cures Act, medical imaging exams and procedure reports are released immediately into your electronic medical record. You may view this report before your referring provider. If you have questions, please contact your health care provider. Indication: Shoulder pain, deformity. Technique: Right shoulder 3 views. Comparison: None. 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 No acute fracture or dislocation. No localized soft tissue swelling. Dictated by Hawk Epps MD @ 05/24/2024 3:48:18 PM (Electronically Signed)
--- NOTE | 2024-05-24 15:03 | ED_ITS ---
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 slightly from his baseline of 9.5 on 05/14. After workup ruling out DVT and other serious causes of pain patient was more more convinced it was shoulder pain and dosing pain with any attempted movement in his shoulder. Difficult to control his pain here in the ER. It sounds like he are he has oxycodone home with his like it is ineffective. He did get some relief from IV Dilaudid. I asked my partner, Dr. Mei , who is skilled in doing shoulder joint injections to his attempt a injection with steroids and local anesthetic. This was achieved and patient only had marginal improvement in his pain after that. Patient reports that he has had good success it for pain control in the past with hydrocodone (rather than oxycodone) so we attempted a dose of that here in the ER. It was also ineffective. He feels that the most effective med for pain of course is IV Dilaudid. Will try a shift from oral oxycodone to oral Dilaudid at home for the next couple of days. He is agreeable this plan of care. Placed into a sling. He will need close outpatient follow-up with Ortho to re-evaluate his shoulder pain. <Bartolome Xiao MD - Last Filed: 05/24/24 23:41> Lab Data Labs: Lab Results 05/24/24 Range/Units 16:05 WBC 12.51 H (4.50-11.00) K/uL RBC 3.84 L (4.30-5.90) m/uL Hgb 11.6 L (13.5-17.5) gm/dL Hct 34.6 L (37.0-53.0) % MCV 90 (80-100) fL MCH 30 (26-34) pg MCHC 34 (32-36) gm/dL RDW Coeff of Gabrielle 13.3 (11.5-15.5) % Plt Count 295 (140-440) K/uL Neut % (Auto) 80.7 H (42.0-72.0) % Lymph % (Auto) 7.8 L (20-44) % Winkler % (Auto) 9.5 (0.0-11.0) % Eos % (Auto) 1.0 (0.0-7.0) % Baso % (Auto) 0.5 (0.0-3.0) % Neut # (Auto) 10.10 H (1.7-7.0) K/uL Lymph # (Auto) 1.00 (0.90-2.90) K/uL Winkler # (Auto) 1.20 H (0.00-0.90) K/UL Eos # (Auto) 0.10 (0.00-0.50) K/uL Baso # (Auto) 0.10 (0.00-0.30) K/uL Abs Immat Gran (auto) 0.10 (0.00-0.30) K/uL Imm/Tot Granulo (auto) 0.5 % Sodium 136 (135-149) mmol/L Potassium 3.7 (3.6-5.1) mmol/L Chloride 104 (96-114) mmol/L Carbon Dioxide 22 (20-32) mmol/L Anion Gap 10 (7-15) mEq/L BUN 14 (7-30) mg/dL Creatinine 0.7 (0.5-1.5) mg/dL Estimated Creat Clear 69.96 Estimated GFR 99 ml/min Glucose 114 (60-115) mg/dL Lactate 0.9 (0.5-1.9) mmol/L Calcium 8.8 (8.4-10.6) mg/dL Total Bilirubin 0.7 (0.1-1.5) mg/dL AST 25 (12-35) U/L ALT 16 (4-50) U/L Alkaline Phosphatase 80 (40-150) U/L Troponin I < 0.01 L (0.01-0.04) ng/mL Total Protein 6.4 (6.0-8.3) g/dL Albumin 3.6 (3.3-5.0) g/dL Lipase 40 (23-300) U/L Ethyl Alcohol 0.00 L (0.01-0.03) % <Bartolome G MD Dameon - Last Filed: 05/24/24 23:41> Lab Results 05/24/24 Range/Units 16:05 WBC 12.51 H (4.50-11.00) K/uL RBC 3.84 L (4.30-5.90) m/uL Hgb 11.6 L (13.5-17.5) gm/dL Hct 34.6 L (37.0-53.0) % MCV 90 (80-100) fL MCH 30 (26-34) pg MCHC 34 (32-36) gm/dL RDW Coeff of Gabrielle 13.3 (11.5-15.5) % Plt Count 295 (140-440) K/uL Neut % (Auto) 80.7 H (42.0-72.0) % Lymph % (Auto) 7.8 L (20-44) % Winkler % (Auto) 9.5 (0.0-11.0) % Eos % (Auto) 1.0 (0.0-7.0) % Baso % (Auto) 0.5 (0.0-3.0) % Neut # (Auto) 10.10 H (1.7-7.0) K/uL Lymph # (Auto) 1.00 (0.90-2.90) K/uL Winkler # (Auto) 1.20 H (0.00-0.90) K/UL Eos # (Auto) 0.10 (0.00-0.50) K/uL Baso # (Auto) 0.10 (0.00-0.30) K/uL Abs Immat Gran (auto) 0.10 (0.00-0.30) K/uL Imm/Tot Granulo (auto) 0.5 % Sodium 136 (135-149) mmol/L Potassium 3.7 (3.6-5.1) mmol/L Chloride 104 (96-114) mmol/L Carbon Dioxide 22 (20-32) mmol/L Anion Gap 10 (7-15) mEq/L BUN 14 (7-30) mg/dL Creatinine 0.7 (0.5-1.5) mg/dL Estimated Creat Clear 69.96 Estimated GFR 99 ml/min Glucose 114 (60-115) mg/dL Lactate 0.9 (0.5-1.9) mmol/L Calcium 8.8 (8.4-10.6) mg/dL Total Bilirubin 0.7 (0.1-1.5) mg/dL AST 25 (12-35) U/L ALT 16 (4-50) U/L Alkaline Phosphatase 80 (40-150) U/L Troponin I < 0.01 L (0.01-0.04) ng/mL Total Protein 6.4 (6.0-8.3) g/dL Albumin 3.6 (3.3-5.0) g/dL Lipase 40 (23-300) U/L Ethyl Alcohol 0.00 L (0.01-0.03) % <Pio Mei MD - Last Filed: 05/26/24 17:21> Imaging Data XR Right shoulder: Attestation: I have reviewed the pertinent imaging results. 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 No acute fracture or dislocation. No localized soft tissue swelling. <Bartolome Xiao MD - Last Filed: 05/24/24 23:41> CT scan - chest: Attestation: I have reviewed the pertinent imaging results. <Bartolome Xiao MD - Last Filed: 05/24/24 23:41> Radiologist's impression: IMPRESSION: 1. No CT evidence of pulmonary thromboembolic disease. 2. No intrathoracic mass or consolidation. 3. Advanced bilateral glenohumeral joint arthrosis. <Bartolome Xiao MD - Last Filed: 05/24/24 23:41> ECG Data Attestation: I personally reviewed and interpreted this ECG as follows: <Bartolome Xiao MD - Last Filed: 05/24/24 23:41> Interpretation: Normal sinus rhythm Rate: 87 RI: 180 QRS axis: Normal axis. No pathologic Q-waves ST segment/T wave: No ST segment elevation or depression QTc: 466 <Bartolome Xiao MD - Last Filed: 05/24/24 23:41> Discharge Plan Discharge Clinical Impression: Acute pain of right shoulder <Bartolome Xiao MD - Last Filed: 05/24/24 23:41> Patient Disposition: Home, Self-Care <Bartolome Xiao MD - Last Filed: 05/24/24 23:41> Condition: Stable <Bartolome Xiao MD - Last Filed: 05/24/24 23:41> Instructions: Shoulder Pain (ED) <Bartolome Xiao MD - Last Filed: 05/24/24 23:41> Additional Instructions: As we discussed, so far we do not see any signs of dangerous causes of your shoulder pain (we do not see any sign of blood clots, pneumonias, rib fractures, heart attack, or other life-threatening problems). I suspect that your pain is from a problem with your shoulder joint and your biceps tendon in your right shoulder. It is very important for you to wear the sling when you are up and around during the day to help manage her pain but take the sling off at night and take the sling off at least twice per day to perform gentle [id number] exercises for your shoulder. Please call your orthopedic surgeon for a recheck appointment on Sunday To manage the pain, switched from oxycodone (since it was ineffective) and use Dilaudid instead. Dilaudid is an opiate pain killer just is oxycodone is. Do not mix them. They both have side effects including dizziness, constipation, and both can be addictive. <Bartolome Xiao MD - Last Filed: 05/24/24 23:41> Prescriptions: New hydromorphone [Dilaudid] 2 mg tablet 2 mg PO Q4-6H PRN (Reason: pain) Qty: 10 0RF No Action cholecalciferol (vitamin D3) 50 mcg (2,000 unit) capsule 50 mcg PO QDAY multivitamin [Multiple Vitamins] Tablet 1 tab PO QDAY diphenhydramine HCl [Allergy Relief(diphenhydramin)] 25 mg capsule 25 mg PO BID PRN oxycodone 5 mg tablet 5 mg PO Q4-6H MDD 6 tabs per day PRN (Reason: Pain) Qty: 30 0RF Rx Instructions: Minimize use. Discontinue as soon as possible duloxetine 60 mg capsule,delayed release(DR/EC) 60 mg PO DAILY pantoprazole 40 mg tablet,delayed release (DR/EC) 40 mg PO DAILY acetaminophen 650 mg tablet extended release 650 mg PO Q8H PRN allopurinol 100 mg tablet 300 mg PO DAILY Eliquis 5 mg tablet 5 mg PO BID Qty: 60 2RF Eliquis DVT-PE Treat 30D Start 5 mg (74 tabs) tablets,dose pack 5 mg PO BID Qty: 74 0RF Rx Instructions: take 10 mg twice daily for for 7 days then 5 mg twice daily the her after that <Bartolome Xiao MD - Last Filed: 05/24/24 23:41> Follow Up/Referrals: Juanis Carrero CNP [Primary Care Provider] - <Bartolome Xiao MD - Last Filed: 05/24/24 23:41> [facility] Al[facility]: [facility] Info Instructions <Bartolome Xiao MD - Last Filed: 05/24/24 23:41> Procedures Joint Aspiration/Injection Joint Asp./Inject. 1: Side of body: right <Pio Mei MD - Last Filed: 05/26/24 17:21> Joint Aspirated: shoulder <Pio Mei MD - Last Filed: 05/26/24 17:21> Preparation: other <Pio Mei MD - Last Filed: 05/26/24 17:21> Needle Size Used: Other <Pio Mei MD - Last Filed: 05/26/24 17:21> Medication Injected, if any: Lidocaine (10 ml) <Pio Mei MD - Last Filed: 05/26/24 17:21> Amount of medication injected (mL): 10 (40 mg) <Pio Mei MD - Last Filed: 05/26/24 17:21> Additional Comments: This patient received a intra-articular injection of a mixture of triamcinolone 40 mg with 1% lidocaine into the right shoulder joint space. He tolerated this procedure well. The area was prepped using alcohol prior to the injection. <Pio Mei MD - Last Filed: 05/26/24 17:21>
--- NOTE | 2024-05-24 15:11 | CRLHL7_ITS ---
For Patients: As a result of the Century Cures Act, medical imaging exams and procedure reports are released immediately into your electronic medical record. You may view this report before your referring provider. If you have questions, please contact your health care provider. INDICATION: .RIGHT SHOULDER PAIN, NO TRAUMA, RECENT DVT TECHNIQUE: CT chest PE was acquired with 100 cc Isovue 370 IV contrast. COMPARISON: None FINDINGS: Pulmonary Arteries: No CT evidence of pulmonary thromboembolic disease. No pulmonary hypertension or right ventricular strain. Heart and Mediastinum: Atrophic thyroid. No axillary or supraclavicular lymphadenopathy. No mediastinal, hilar or retrocrural lymphadenopathy. Borderline cardiomegaly. Ectasia of the ascending aorta measuring 46 millimeters. Atherosclerotic coronary artery calcifications. Lungs and Airways: Dependent subsegmental atelectasis. Calcified granulomas. No endoluminal lesion. No mass or consolidation. Pleura: The pleural spaces are normal. Abdomen: Cholecystectomy. Bones and soft tissues: Advanced bilateral glenohumeral joint arthrosis. Old right-sided rib fractures. Thoracic spondylosis. IMPRESSION: 1. No CT evidence of pulmonary thromboembolic disease. 2. No intrathoracic mass or consolidation. 3. Advanced bilateral glenohumeral joint arthrosis. Please note that all CT scans at this facility use dose modulation, iterative reconstruction, and/or weight-based dosing when appropriate to reduce radiation dose to as low as reasonably achievable. Dictated by Eladio Stafford MD @ 05/24/2024 4:28:48 PM (Electronically Signed)
[2024-05-24] MEDS: 0.9 % SODIUM CHLORIDE 500 ML 500 ML IV (15:20)
[2024-05-24] MEDS: HYDROCORTISONE SOD SUCCINATE 50 MG/ML inj 100 MG IVP (15:20)
[2024-05-24] MEDS: ONDANSETRON 2 MG/ML inj 4 MG IVP (15:20)
[2024-05-24] MEDS: HYDROmorphone 0.5 mg/0.5 ml inj IVP ×2 (15:20→16:29)
[2024-05-24 16:11] LABS: Lactate* 0.9 mmol/L (0.5-1.9)
[2024-05-24 16:14] LABS: Basophils Percent Auto 0.5 % (0.0-3.0); Hematocrit 34.6 % (37.0-53.0); Hemoglobin* 11.6 gm/dL (13.5-17.5); Immature Granulocytes Pct Auto 0.5 %; Lymphocytes Percent Auto 7.8 % (20-44); Mean Corpuscular HGB Conc 34 gm/dL (32-36); Mean Corpuscular Hemoglobin 30 pg (26-34); Mean Corpuscular Volume 90 fL (80-100); Monocytes Percent Auto 9.5 % (0.0-11.0); Neutrophils Percent Auto 80.7 % (42.0-72.0); Platelet Count* 295 K/uL (140-440); RDW Coefficient of Variation % 13.3 % (11.5-15.5); Red Blood Count 3.84 m/uL (4.30-5.90); Slide Review Reflex No; White Blood Count* 12.51 K/uL (4.50-11.00)
[2024-05-24 16:28] LABS: Albumin* 3.6 g/dL (3.3-5.0); Chloride* 104 mmol/L (96-114); Potassium* 3.7 mmol/L (3.6-5.1); Sodium* 136 mmol/L (135-149)
--- OUTSIDE RECORDS SUMMARY | 2024-05-24 16:28 | XMS_ITS | Clinical Summary ---
Author Organization [facility] Address [place], [place] [address] Care Team Providers Care Cvt Rn Name Role Phone Pcp, No Primary Care [...] to the patient. Hilda Jett MD, FACP, [facility] Vascular Medicine Post-traumatic seroma 04/13/20092023 Colitis 12/08/2007 03/18/2024 Urethral injury 10/28/2007 03/18/2024 Overview (03/18/2024): disruption CHOLELITHIASIS 05/05/2005 05/15/2016 RUQ PAIN 05/05/2005 05/15/2016 HYPOXIA 05/05/2005 05/15/2016 Chronic pain disorder 2023 Overview (07/23/2019): Regular tramadol use,#120 should last 30 days. Strict. Encounter for screening colonoscopy 03/18/2024 Encounters Date Type Department Care Team Description 05/20/2024 Telephone [facility] [address] [place] [address] Sun Heck MD Appointment 05/19/2024 Orders Only [facility] Scanner 1 scan: (1-Ord) [facility], VENOUS LE RT , 05/19/2024 05/19/2024 Orders Only [facility] Scanner 1 scan: (1-Ord) [facility], VENOUS LE RT, 05/19/2024 05/19/2024 Telephone [facility] [address] [place] [address] Amish Mcfadden DO 05/19/2024 Telephone [facility] [address] [place] [address] Ginette Dee NP Appointment 05/15/[address] [facility] [address] [place] [address] Juanis Carrero NP Questions (Referral Request ) 05/13/2024 Orders Only [facility] Scanner 1 scan: (1-Ord) [facility], XR KNEE RT 2V, 05/13/2024 05/12/2024 10:50 AM RN [employer] MARROW [employer]PL[employer] Office Visit [address] [address] Juansi Carrero NP Follow Up (Before surgery tomorrow ) 05/12/2024 Travel 04/29/[address] [address] Juanis Carrero NP Medication Management (celecoxib (CELEBREX) ) 04/22/2024 10:15 AM RN BONE MARROW TRANSPLANT Orders Only [address] [address] Erika Degroot Lab 04/21/2024 5:00 PM RN [employer] M[employer]OW TR[employer]PLANT Office Visit [facility] [address] [place] [phone] Dalila Martinez NP Diarrhea (Liquid stools, cramping stomach x 4 days.) 04/21/2024 Travel 04/21/[address] [address] Juanis Carrero NP 04/21/2024 Nurse Triage [address] [address] Juanis Carrero NP Diarrhea 04/18/[address] [address] Juanis Carrero NP Orthopedic Referral (Dr. Rodriguez- [facility]) 04/15/[address] [address] Juanis Carrero NP Lab 04/15/[address] [address] Juanis Carrero NP 04/14/2024 9:10 AM RN [employer] MARROW TR[employer]PLANT Office Visit [address] [address] Juanis Carrero NP Pre-Op Exam (05/13/24- right knee placement, [facility]); Form (handicap parking) 04/14/[address] [address] Juanis Carrero NP 04/14/2024 Orders Only [address] [address] Juanis Carrero NP 1 scan: (1-Ord) 04/14/2024 04/14/2024 Travel 04/03/[address] [address] Juanis Carrero NP Error-please disregard 03/18/2024 10:20 AM RN B[employer] MARROW TR[employer]PLANT Ancillary Procedure [address] [address] 03/18/2024 10:15 AM RN B[employer] MARROW TRANSPLANT Ancillary Procedure [address] [address] 03/18/2024 8:45 AM RN B[employer] MARROW TR[employer]PL[employer] Office Visit [address] [address] Juanis Carrero NP Pain (right knee, right hip, shoulders, arms, wrists); Eye Problem (watery eyes more often, wound under eye); Acid Indigestion (vomiting); Sinus Problem (morning phlegm/sinus issues) 03/18/[address] [address] Juanis Carrero NP 03/18/2024 Travel from Last 3 Months Immunizations Name Administration Dates Next Due COVID-19 vaccine (Pfizer-Bio NTech 30mcg/0.3mL) 12YO+ BIVALENT PF, MDV 09/14/2022 COVID-19 vaccine (Pfizer-Bio NTech 30mcg/0.3mL) 12YO+ GRACIELA-SUCROSE PF, MDV 10/03/2021 COVID-19 vaccine (CaterCow NTech 30mcg/0.3mL) PF, MDV 02/04/2021,07/13/2020,06/22/2020 HepA-HepB (Twinrix) [...] on file Legal Sex Male 5:23 AM RN [employer] M[employer]OW TR[employer]PLANT Gender Identity Not on file Sexual Orientation Not on file 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 Not on file Not on file Obstetrics History Last Filed Vital Signs Vital Sign Reading Time Taken Comments Blood Pressure 126/74 05/12/2024 10:54 AM RN [employer] MARROW TR[employer]PLANT Pulse 78 05/12/2024 10:54 AM RN [employer] M[employer] TR[employer]PLANT Temperature 36.4 C (97.5 F) 04/21/2024 5:41 PM RN [employer] MARROW TR[employer]PLANT Respiratory Rate 20 04/21/2024 5:41 PM RN [employer] MARROW TRANSPLANT Oxygen Saturation 94% 04/21/2024 5:41 PM RN BONE MARROW TRANSPLANT Inhaled Oxygen Concentration - - Weight 114.9 kg (253 lb 3.2 oz) 025 10:54 AM RN [employer] MARROW TRANSPLANT Height 177 cm (5' 9.69) 05/29/2023 10: 59 AM RN BONE MARROW TRANSPLANT Body Mass Index 36.66 05/29/2023 10:59 AM RN B[employer] MARROW TRANSPLANT Plan of Treatment Upcoming Encounters Date Type Department Care Team (Late st Contact Info) Description 06/16/2024 2:30 PM RN B[employer] MARROW TRANSPLANT Office Visit [facility] [address] [facility] [place] [address] Sun Heck MD 200 [facility] [place] [address] Health Maintenance Due Date Last Done Comments [...] Diagnosis Comments SCAN-ULTRASOUND REPORT 05/19/2024 12:00 AM RN [employer] M[employer]OW TR[employer]PLANT SCAN-ULTRASOUND REPORT 05/19/2024 12:00 AM RN B[employer] M[employer]OW TRANSPLANT SCAN-RADIOLOGY REPORT 05/13/2024 12:00 AM RN [employer] M[employer] TR[employer]PLANT STOOL PATHOGEN MULTIPLEX PCR PANEL Routine 04/22/2024 5:00 AM RN [employer] M[employer] TR[employer]PLANT Acute diarrhea CBC WITH AUTO DIFFERENTIAL Routine 04/14/2024 10:39 AM RN [employer] MARROW TRANSPLANT Factor 5 Leiden mutation, heterozygous (HC) Deep vein thrombosis (DVT) of femoral vein, unspecified chronicity, unspecified laterality (HC) COMP METABOLIC PANEL Routine 04/14/2024 10:39 AM RN [employer] MARROW TR[employer]PLANT Factor 5 Leiden mutation, heterozygous (HC) Deep vein thrombosis (DVT) of femoral vein, unspecified chronicity, unspecified laterality (HC) URIC ACID Routine 04/14/2024 10:39 AM RN [employer] MARROW TR[employer]PLANT Gout, unspecified cause, unspecified chronicity, unspecified site EKG 12 LEAD Routine 04/14/2024 12:00 AM RN B[employer] MARROW TR[employer]PLANT Pre-op exam HEMOGLOBIN A1C Add On 04/14/2024 12:00 AM RN [employer] MARROW TR[employer]PLANT Elevated blood sugar XR HIP 2 OR 3 VIEWS W PELVIS RIGHT Routine 03/18/2024 10:32 AM RN [employer] M[employer] TR[employer]PLANT Hip pain, right XR KNEE WB 1 VIEW AP BILATERAL AND 2 VIEWS RIGHT STAT 03/18/2024 10:31 AM RN [employer] M[employer] TR[employer]PLANT Arthritis of right knee LIPID PANEL W REFLEX MEASURED LDL Routine 05/16/2023 9:35 AM RN [employer] M[employer]OW TR[employer]PLANT Hyperlipidemia, unspecified hyperlipidemia type COLONOSCOPY 07/20/2021 10:54 AM CDT ANTI HCV Routine 06/10/2018 10:57 AM RN [employer] MARROW TR[employer]PLANT Encounter for HCV screening test for high risk patient from Last 3 Months or Most Recently Relevant to Health Maintenance Results * SCAN-ULTRASOUND REPORT (05/19/2024 12:00 AM RN B[employer] MARROW TRANSPLANT) Only the most recent of2 resultswithin the time period is included. Anatomical Region Laterality Modality Other us Scanner OTHER Final Result * SCAN-RADIOLOGY REPORT (05/13/2024 12:00 AM RN BONE MARROW TRANSPLANT) Anatomical Region Laterality Modality Other us Scanner OTHER Final Result * (ABNORMAL) STOOL PATHOGEN MULTIPLEX PCR PANEL (04/22/2024 5:00 AM RN B[employer] MARROW TRANSPLANT) Campylobacter NOT Detected NOT Detected 04/23/2024 6:06 PM RN B[employer] MARROW TRANSPLANT [facility] Salmonella NOT Detected NOT Detected 04/23/2024 6:06 PM RN B[employer] M[employer]OW TRANSPLANT [facility] Shigella NOT Detected NOT Detected 04/23/2024 6:06 PM RN [employer] M[employer] TR[employer]PLANT [facility] Vibrio NOT Detected NOT Detected 04/23/2024 6:06 PM RN [employer] M[employer] TR[employer]PLANT [facility] Yersinia Enterocolitica NOT Detected NOT Detected 04/23/2024 6:06 PM RN [employer] MARROW TRANSPLANT [facility] Shiga Toxin 1 NOT Detected NOT Detected 04/23/2024 6:06 PM RN [employer] M[employer] TR[employer]PLANT [facility] Shiga Toxin 2 NOT Detected NOT Detected 04/23/2024 6:06 PM RN BONE MARROW TRANSPLANT [facility] Norovirus Detected(A) NOT Detected 04/23/2024 6:06 PM RN B[employer] MARROW TRANSPLANT [facility] Rotavirus NOT Detected NOT Detected 04/23/2024 6:06 PM RN B[employer] MARROW TRANSPLANT [facility] Stool STOOL SPECIMEN / Unknown Non-Blood / Unknown 04/22/2024 5:00 AM RN [employer] MARROW TRANSPLANT 04/22/2024 10:18 AM RN BONE MARROW TRANSPLANT [facility] - 04/23/2024 6:06 PM RN BONE MARROW TRANSPLANT This test is a Culture Independent Diagnostic Test (CIDT) therefore isolates are not available for susceptibility testing. Antibiotic treatment is often contraindicated and may be detrimental in cases of enteric infections, thus routine susceptibility testing is not recommended. us Dalila Martinez NP MICROBIOLOGY Final Re sult [facility] [address] [place] [address], * CBC AND DIFFERENTIAL (04/14/2024 10:39 AM RN BONE MARROW TRANSPLANT) WHITE BLOOD CELL COUNT 7.2 3.8 - 10.8 Thousand/u L [facility] RED BLOOD CELL COUNT 4.65 4.20 - [...] BLOOD SPECIMEN / Unknown 04/14/2024 10:39 AM RN BONE MARROW TRANSPLANT 04/14/2024 10:40 AM RN B[employer] MARROW TRANSPLANT Juanis Carrero NP HEMATOLOGY Final Result [employer] [facility] [address] [place] [address], [facility] [address] [place] [address] * URIC ACID (04/14/2024 10:39 AM RN BONE MARROW TRANSPLANT) Pathologist [facility] URIC ACID 4.2 4.0 - 8.0 mg/dL [facility] Comment: Therapeutic target for gout patients: <6.0 mg/dL Blood BLOOD SPECIMEN / Unknown 04/14/2024 10:39 AM RN B[employer] MARROW TRANSPLANT 04/14/2024 10:40 AM RN B[employer] MARROW TRANSPLANT Juanis Carrero NP CHEMISTRY Final Result [employer] [facility] [address] [place] [address], [facility] [address] [place] [address] * (ABNORMAL) COMP METABOLIC PANEL (04/14/2024 10:39 AM RN BONE MARROW TRANSPLANT) [facility] GLUCOSE 125(H) 65 - 99 mg/dL [employer] Comment: Fasting reference interval For someone without known diabetes, a glucose value between 100 and 125 mg/dL is consistent with prediabetes and should be confirmed with a follow-up test. UREA NITROGEN (BUN) 17 7 - 25 mg/dL [facility] CREATININE 0.89 0.70 - 1.28 mg/dL [employer] EGFR 92 > OR = 60 mL/min/1. 73m2 [employer] [facility] BUN/CREATININE RATIO SEE NOTE: 6 - 22 (calc) [facility] Comment: Not Reported: BUN and Creatinine are within reference range. SODIUM 139 135 - 146 mmol/L [facility] POTASSIUM 4.7 3.5 - 5.3 mmol/L [facility] CHLORIDE 105 98 - 110 mmol/L [facility] CARBON DIOXIDE 24 20 - 32 mmol/L [facility] CALCIUM 9.3 8.6 - 10.3 mg/dL [facility] PROTEIN, TOTAL 6.6 6.1 - [...] BLOOD SPECIMEN / Unknown 04/14/2024 10:39 AM RN B[employer] MARROW TRANSPLANT 04/14/2024 10:40 AM RN B[employer] MARROW TRANSPLANT us Juanis Carrero NP CHEMISTRY Final Result [employer] [facility] [address] [place] [address], [employer] [address] * (ABNORMAL) HEMOGLOBIN A1C (04/14/2024 12:00 AM RN BONE MARROW TRANSPLANT) Pathologist [facility] HEMOGLOBIN A1C 5.8(H) <5.7 % of total [...] SPECIMEN / Unknown 04/14/2024 04/15/2024 5:35 PM RN BONE MARROW TRANSPLANT us Juanis Carrero NP CHEMISTRY Final Result [employer] [facility] [address] [place] [address], [facility] [address] [place] [address] * EKG 12 LEAD (04/14/2024 12:00 AM RN BONE MARROW TRANSPLANT) Juanis Carrero NP EKG ORD Final Result * XR HIP 2 OR 3 VIEWS W PELVIS RIGHT (03/18/2024 10:32 AM RN BONE MARROW TRANSPLANT) Anatomical Region Laterality Modality HIPS, HIPR, Pelvis Computed Radi ography 03/18/2024 11:1 7 AM RN B[employer] MARROW TRANSPLANT Impressions 03/18/2024 11:17 AM RN BONE MARROW TRANSPLANT No significant change from the CT scan of 08/13/2017. Dictated by Nadege Valverde MD @ 03/18/2024 11:17:20 AM (Electronically Signed) Narrative 03/18/2024 11:17 AM RN BONE MARROW TRANSPLANT For Patients: As a result of the [...] AND 2 VIEWS RIGHT (03/18/2024 10:31 AM RN BONE MARROW TRANSPLANT) Anatomical Region Laterality Modality KNEES, KNEE R Computed Radiogr aphy 03/18/2024 10:3 9 AM RN BONE MARROW TRANSPLANT Narrative 03/18/2024 10:39 AM RN BONE MARROW TRANSPLANT For Patients: As a result of the [...] W REFLEX MEASURED LDL (05/16/2023 9:35 AM RN BONE MARROW TRANSPLANT) CHOLESTEROL,TOTAL 202(H) 100 - 199 mg/dL 05/16/2023 10:07 AM [facility] Comment: Cholesterol, Total Reference Ranges Desirable <200 mg/dL Borderline 200-239 mg/dL High >=240 mg/dL TRIGLYCERIDES 98 <150 mg/dL 05/16/2023 10:07 AM [facility] HDL CHOLESTEROL 70 >40 mg/dL 10:07 AM [facility] NON-HDL CHOLESTEROL 132 <145 mg/dl 05/16/2023 10:07 AM [facility] CHOL/HDL RATIO 2.89 <4.50 05/16/2023 10:07 AM [facility] LDL CHOLESTEROL 112 <=130 mg/dL 05/16/2023 10:07 AM [facility] VLDL CHOLESTEROL 20 <=30 mg/dL 05/16/2023 10:07 AM [facility] PROVIDER ORDERED STATUS RANDOM 05/16/2023 10:07 AM [facility] Blood BLOOD SPECIMEN / Unknown Venipuncture / Unknown 05/16/2023 9:35 AM RN B[employer] MARROW TRANSPLANT 05/16/2023 9:35 AM RN BONE MARROW TRANSPLANT us Gage Casillas DO CHEMISTRY Final Res ult [facility] [address] [place] [address] * COLONOSCOPY (07/20/2021 10:54 AM CDT) 07/20/2021 10:5 4 AM CDT Narrative Transcriptions Taiwo Lynn MD - 07/20/2021 11:42 AM CDT Patient Name: Jarred Muñoz Procedure Date: 07/20/2021 Gender: Male Date of : 1950 Admit Type: Ambulatory Procedure: Colonoscopy Proceduralist: Taiwo Lynn [facility] Indications/Pre-Op Diagnosis: Screening for colorectal malignantneoplasm Medications: [...] ult * ANTI HCV (06/10/2018 10:57 AM RN BONE MARROW TRANSPLANT) HEPATITIS C ANTIBODY Non-React napoleon Non-React napoleon 06/10/2018 8:03 PM RN BONE MARROW TRANSPLANT [facility] [employer] [facility] Comment:Antibodies to HCV no t detected; does not exclude the possibility of exposure to HCV. Blood BLOOD SPECIMEN / Unknown Venipuncture / Unknown 06/10/2018 10:57 AM RN BONE MARROW TRANSPLANT 06/10/2018 10:57 AM RN BONE MARROW TRANSPLANT Gage Casillas DO SEND OUTS Final Res ult [facility] [address] [place] [address], [place] from Last 3 Months or Most Recently Relevant to Health Maintenance Insurance [employer] [place] [place] [employer] [place] BLUE MR PB ONLY [employer] [place] BLUE HB ONLY MEDICARE PART B HB ONLY MEDICARE PART A HB ONLY MEDICARE PB ONLY [employer] [place] BLUE MR PB ONLY Advance Directives * [...] 8:32 PM 05/09/2005 1:18 PM Care Teams Cvt Rn Relationship Specialty Start Date End Date Pcp, No . PCP - General 07/12/23
--- OUTSIDE RECORDS SUMMARY | 2024-05-24 16:28 | XMS_ITS | Continuity of Care Document ---
Author Organization [facility] Address [address] [address] [place] [address] Phone Care Team Providers Care Application Support Manager Name Role Phone Unavailable Unavailable Unavailable Advance Directives Directive Yes / No Effective Date File Name No Information Encounters Encounter Description Practice Location Reason(s) For Visit Diagnoses Date Provider Providers Copied on Encounter [facility], [address] [address], [place], [place], [id number], [place] tel:[phone] [facility] No Information 2200 6 No Information Family History Family Member Type Diagnosis Age At Onset No Information Payers Payer name Insurance type Covered republican ID Authoriza tion(s) No Information Social History [...]
[2024-05-24 16:30] LABS: Creatinine* 0.7 mg/dL (0.5-1.5); Est. Creatinine Clearance* 69.96; Estimated Glomerular Filt Rate 99 ml/min
[2024-05-24 16:31] LABS: Alanine Aminotransferase* 16 U/L (4-50); Alkaline Phosphatase* 80 U/L (40-150); Anion Gap 10 mEq/L (7-15); Aspartate Amino Transferase* 25 U/L (12-35); Bilirubin Total* 0.7 mg/dL (0.1-1.5); Blood Urea Nitrogen* 14 mg/dL (7-30); Calcium* 8.8 mg/dL (8.4-10.6); Carbon Dioxide* 22 mmol/L (20-32); Glucose* 114 mg/dL (60-115); Lipase* 40 U/L (23-300); Total Protein* 6.4 g/dL (6.0-8.3)
[2024-05-24 16:44] LABS: Troponin I* < 0.01 ng/mL (0.01-0.04)
[2024-05-24] MEDS: HYDROCODONE-ACETAMIN 5-325 MG 1 TAB 2 TAB PO (19:07)
[2024-05-24] MEDS: HYDROmorphone 2 MG TABLET PO (20:14)
== END 2024-05-24 20:53 | disposition home or self-care (01) ==
PROVIDERS: Emergency Provider Emergency Medicine; PCP Family Medicine
DX: M25.511 Pain in right shoulder (principal); X50.1XXA Overexertion from prolonged static or awkward postures, initial encounter
CPT/HCPCS: 36415; 71275; 73030; 80053; 81001; 82077; 83605; 83690; 84484; 85025; 94761; 96374; 96375; 96376; 99284; A9270; J1171; J1720; J2405; J7030; Q9967

== ENCOUNTER 2024-07-01 13:45 | Outpatient (RCR) | payer MEDICARE, BC, SELFPAY ==
--- NOTE | 2024-05-08 14:12 | PT.OPEX ---
PT [place] [facility] Eval PT [facility] Outpatient Eval Start: 05/08/24 09:03 Freq: Status: Active Protocol: Document 05/06/24 09:06 BARRIE (Rec: 05/08/24 09:11 BARRIE [id number]) E-signed By Walt Michael DPT Physical Therapy Outpatient Evaluation Insurance Information Recert Due Date 08/04/24 Insurance Name Medicare B Medical Diagnosis R TKA Treating Diagnosis R knee pain muscle weakness Referring MD Ge resendiz Subjective Subjective Jarred comes in today about 1 week prior to his R TKA scheduled for 05/13/24. 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 The right knee has been giving him issues since then as he was torn which knee to do first. He has had previous knee scopes to help manages symptoms along with injections however to no usp relief. Has history of blood clots which has made him hold off on doing the surgery. He can sit as long as he wants but any walking or prolonged standing really limits him. Feels like he has to plan his days around his knee. Pain Comments 0-7/10 sitting no pain walking standing 7/10 Date of Surgery (If applicable) 05/13/24 Current Work Status Retired Precautions Treatment Precautions/Contraindications L TKA 2012, guillen hx blood clots, open book pelvic fracture [id number] Objective Other/Pertinent Objective GAIT/FUNCTIONAL MOBILITY Trendelenburg pattern, decreased pace KNEE ROM R8-118 L LE MMT: Hip flexion: R4+ /5 Hip abduction: R 4+/5 performed in seated knee extension: R 4+/5 Knee Flexion: R 5/5 Assessment Assessment/Impression Pt is a 73 yr old female who presents with concerns of R knee pain secondary to OA. Patient also has notable objective findings including limited ROM, impaired balance, decreased strength also likely contributing to the problem. Patient is a good candidate for skilled therapy to target deficits described above. Skilled PT intervention is necessary for use of therapeutic exercise manual therapy, neuromuscular re- education, gait training, and therapeutic activity. Functional impairments include difficulty with: walking standing sit to stands stairs . See appropriate sections of PT eval for complete list of goals and POC. D/C plan and criteria is for pt to achieve the goals as listed below or until max rehab potential is met. Pt was agreeable with plan of care and goals established. Plan of Care Rehabilitation Potential Good Physical Therapy Goals TKA GOALS STG (within 4-6 weeks ) 1) Pt will improve knee AROM at least 0 to 90 for improved sit to stand transfers 2) Pt will demonstrate negative extensor lag during straight leg raise exercise with ability to complete at least 15 reps with 5 sec hold to improve strength for ambulation 3) Patient will demonstrate/ report ability to walk for 20- 30 minutes w/SPC with pain level <1/10, to allow for community and household ambulation. 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 Coordination/Communication With Referral Source Treatment Plan/Direct Interventions Gait Training,Joint Mobilization,Manual Therapy, Neuromuscular Re-ed,Self-Care/ Home Management,Therapeutic Activities,Therapeutic Exercises Frequency/Duration 1-2 visits a week for 8-12 weeks [ End ] Patient Will Be Discharged From Therapy Completion of LTG(s), Independent w/HEP, Independently Progressing Evaluation Billing Untimed Code Treatment Minutes 30 Complexity Low Certification Information Initial Certification Date 05/06/24 Ending Certification Date 08/04/24 Provider Signature Required Yes Provider Signature Shows Agreement With POC & Medical Necessity Physician NPI Number Write NPI# Here Physician Comment/Change : Physician Signature & Date Requested Please Sign/Date Here
--- NOTE | 2024-06-10 09:50 | PT.OPDNX ---
PT [facility] Daily Note PT [facility] Daily Note Start: 05/08/24 09:03 Freq: Status: Active Protocol: Document 06/10/24 07:14 BARRIE (Rec: 06/10/24 09:49 BARRIE [id number]) E-signed By Walt Michael DPT PT OP Daily Progress Note Visit Information Note Type Daily Note,Recert/Progress Note Visit Number 10 Cancellation Note Treatment Cancelled Other; See Comments Cancelled Documentation Patient had follow up with DAMIAN Yoder yesterday due to increased swelling in his R foot. Beba aspirated fluid off patient's R knee. He was sent to ED to assess for DVT. Patient has hx of DVT and was found to have acute DVT in R LE. Per chart he was on blood thinner, dose will be increased. Patient cancelled PT appt today as he was in the ED until last evening, too tired from all of his appt, activity yesterday. Patient has follow up with primary PT later this week. Insurance Information Recert Due Date 08/04/24 Insurance Name Medicare B Medical Diagnosis R TKA -05/13/24 Treating Diagnosis R knee pain muscle weakness Referring MD Ge resendiz Subjective Subjective Jarred states he is feeling pretty well overall, uses pain pills for sleeping after not being able to sleep a 3-4 hours. Is icing the knee less and less. Still feels stiff with straightening. Pain Comments 08/07 Date of Surgery (If applicable) 05/13/24 Precautions Treatment Precautions/Contraindications L TKA 2012, guillen hx blood clots, open book pelvic fracture [id number] Home Exercise Home Exercise Comments [id number] Objective Other/Pertinent Objective GAIT/FUNCTIONAL MOBILITY increased antalgic gait pattern today, decreased stride length. swellin cm above superior pole of patella 51-52 cm girth circumference KNEE AROM R3-125, slr flexion x 10 notes 2-3 degrees lag towards end of rep range 8 inch step up : good strength and control, minimal UE use 8 inch step down: increased UE use for lowering increased knee pressure -minimal pain Patient Instructed in Risks/Benefits Yes Therapeutic Exercise Therapeutic Exercise Minutes (minutes) 20 Therapeutic Exercise: To Restore recumbent bike for rom x 6 min Functional Status 8 inch step up x 12 4 inch step down x 12 slr flexion x 10 quad set in ext x 20 saq x 20 Manual Therapy Techniques Manual Therapy Minutes (minutes) 15 Manual Therapy Techniques PA tibial femoral - working knee extension pt prom knee flexion ext Other Interventions Provided Other Interventions Provided 10 min icing Treatment Minutes Untimed Code Treatment Minutes 10 Timed Code Treatment Minutes 35 Total Treatment Time 45 Billing Units Manual Therapy Units 1 Therapeutic Exercise Units 1 Assessment/Impression Assessment/Impression Patient is a 73 year old male that presents with R TKA ~3.5 weeks post op . Patient reports 80-100% improvement with skilled physical therapy services. Patient has shown improvement in PT demonstrating decreased pain, increased range of motion - flexion, increased strength, and increased tolerance to activity. Patient continues to present with pain, decreased ROM-extension, decreased strength knee extension in open and clocked chain activity, and decreased tolerance to activity. Patient would benefit from continued skilled PT services to address these issues and to maximize function. Plan of Care Physical Therapy Goals TKA GOALS STG (within 4-6 weeks ) 1) Pt will improve knee AROM at least 0 to 90 for improved sit to stand transfers 2) Pt will demonstrate negative extensor lag during straight leg raise exercise with ability to complete at least 15 reps with 5 sec hold to improve strength for ambulation 3) Patient will demonstrate/ report ability to walk for 20- 30 minutes w/SPC with pain level <1/10, to allow for community and household ambulation. met LTG: (within 10-12 weeks) 1) Pt will be indep with HEP for detention management of pain/symptoms 2) Pt will improve knee AROM at least 0 to 120 for improved sit to stand transfers 3) Patient will ascend/descend at least 12 steps using single rail and reciprocal pattern to improve ease of mobility at home/community 4) Patient will demonstrate/ report ability to walk for 30 minutes w/o AD with pain level <1/10, to allow for community and household ambulation. Daily Plan of Care Continue per POC Recertification Information Recertification Start Date 06/10/24 Recertification Due Date 09/08/24 Discharge Note Date of First Visit for Therapy 05/06/24 Initial Primary Functional Limitations walking standing stairs Initial Pain Level 2-7/10
== END 2024-07-16 13:33 | disposition home or self-care (01) ==
PROVIDERS: PCP Family Medicine; Visit Provider Orthopaedic Surgery
DX: M17.11 Unilateral primary osteoarthritis, right knee (principal); Z96.651 Presence of right artificial knee joint; M25.561 Pain in right knee; M62.81 Muscle weakness (generalized); Z51.89 Encounter for other specified aftercare
CPT/HCPCS: 97110; 97116; 97140; 97161

== ENCOUNTER 2024-11-29 10:47 | Emergency (ER) | payer MEDICARE, BC, SELFPAY ==
[2024-11-29] VITALS (21 sets, daily range): BP systolic 141–163; BP diastolic 72–88; PULSE 100–108; RESP 13–24; TEMP 36.1; O2SAT 90–98; BMI 36.9
--- NOTE | 2024-11-29 10:50 | CRLHL7_ITS ---
For Patients: As a result of the Century Cures Act, medical imaging exams and procedure reports are released immediately into your electronic medical record. You may view this report before your referring provider. If you have questions, please contact your health care provider. DATE: 11/29/2024 CLINICAL HISTORY: Patient with focal neurological deficits. TECHNIQUE: Standard helical CT image acquisition of the neck up to the skull base after bolus intravenous contrast enhancement. 2D and 3D MIP images for post-processing were performed and interpreted on an independent workstation and 3D images were permanently archived. 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 The right middle cerebral artery fills via the [place], however, there are right M2 and M3 segment emboli. The origins of the great vessels from the aortic arch are patent. The origin of the right vertebral artery demonstrates mild narrowing. The origin of the left vertebral artery is patent. The common carotid arteries are patent. There is at least a severe (80%) and possibly a critical (greater than 90%) stenosis at the origin of the left internal carotid artery by NASCET criteria. This is caused by non-calcified plaque but the residual lumen is obscured by artifact from dental hardware. The rest of the cervical segments of the left internal carotid arteries are patent up to the skull base. The right vertebral artery is dominant. The cervical segments of the vertebral arteries are patent up to the skull base. The visualized lung apices are unremarkable. The thyroid gland is unremarkable. The soft tissues of the neck are unremarkable. There are degenerative changes in the cervical spine. IMPRESSION: 1. 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 The right middle cerebral artery fills via the [place], however, there are right M2 and M3 segment emboli. 2. At least a severe (80%) and possibly a critical (greater than 90%) stenosis at the origin of the left internal carotid artery by NASCET criteria. This is caused by non-calcified plaque but the residual lumen is obscured by artifact from dental hardware. Please note that all CT scans at this facility use dose modulation, iterative reconstruction, and/or weight-based dosing when appropriate to reduce radiation dose to as low as reasonably achievable. Dictated by Joaquín Schroeder MD @ 11/29/2024 12:28:01 PM (Electronically Signed)
--- NOTE | 2024-11-29 10:50 | CRLHL7_ITS ---
For Patients: As a result of the Century Cures Act, medical imaging exams and procedure reports are released immediately into your electronic medical record. You may view this report before your referring provider. If you have questions, please contact your health care provider. INDICATION: Left arm weakness. Facial droop. TECHNIQUE: CT of the head without contrast. Coronal and sagittal reformats are included. COMPARISON: No comparisons. FINDINGS: No CT evidence of acute cortical infarct. No loss of fallon white matter differentiation. No hyperdense vessels to suggest intracranial thrombus. No acute intracranial hemorrhage. No mass effect or midline shift. No hydrocephalus or extra-axial collections. White matter is within normal limits for age. No acute osseous abnormalities. Mastoid air cells and paranasal sinuses are clear. Normal soft tissues. IMPRESSION: IMPRESSION:1. No CT evidence of acute cortical infarct. No acute intracranial hemorrhage. No other acute intracranial findings. Please note that all CT scans at this facility use dose modulation, iterative reconstruction, and/or weight-based dosing when appropriate to reduce radiation dose to as low as reasonably achievable. Dictated by Tyrone Kebede MD @ 11/29/2024 11:35:55 AM (Electronically Signed)
--- NOTE | 2024-11-29 10:50 | CRLHL7_ITS ---
For Patients: As a result of the Century Cures Act, medical imaging exams and procedure reports are released immediately into your electronic medical record. You may view this report before your referring provider. If you have questions, please contact your health care provider. DATE: 11/29/2024 CLINICAL HISTORY: Patient with focal neurological deficits. TECHNIQUE: Standard helical CT image acquisition through the intracranial circulation following intravenous administration of contrast material with bolus tracking. 2D and 3D MIP images for post-processing were performed and interpreted on an independent workstation and 3D images were permanently archived. COMPARISON: CT same day. 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 The right middle cerebral artery fills via the [place], however, there are right M2 and M3 segment emboli. The right anterior cerebral artery and its branches are normal. The left internal carotid artery is normal. The left middle cerebral artery and its branches are normal. The left anterior cerebral artery and its branches are normal. The anterior communicating artery is well visualized and appears normal. The right vertebral artery and PICA are normal. The left vertebral artery and PICA are normal. The right vertebral artery is dominant. The basilar artery is patent and appears normal. The right posterior cerebral artery is normal. The left posterior cerebral artery is normal. The visualized venous structures are patent. 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 The right middle cerebral artery fills via the [place], however, there are right M2 and M3 segment emboli. Please note that all CT scans at this facility use dose modulation, iterative reconstruction, and/or weight-based dosing when appropriate to reduce radiation dose to as low as reasonably achievable. Dictated by Joaquín Schroeder MD @ 11/29/2024 12:31:42 PM (Electronically Signed)
--- OUTSIDE RECORDS SUMMARY | 2024-11-29 10:50 | XMS_ITS | Clinical Summary ---
Author Organization [facility] Address [address] [place] [id number] Care Team Providers Care Guest Relations Agent Name Role Phone Juanis Carrero NP Primary Care Provider [phone] Allergies Active Allergy Reactions Criticality Noted Date Comments Iodine 05/05/2005 Lorazepam Hallucinations 07/21/2009 (ativan) hallucinations Shellfish Containing Products Anaphylaxis High 05/03/2005 mild reaction to shrimp Medications multivitamin (MVI) tablet Take 1 tablet. by mouth continuous as needed (pain). 0 017 Active acetaminophen SR (Tylenol 8 Hour) 650 mg Extended-Release tabletIndications :Chronic abdominal pain Take 1 Tablet (650 mg) by mouth every 8 hours if needed. Max acetaminophen dose: 4000mg in 24 hrs. 0 021 Active cholecalciferol (Vitamin D-3) 2,000 unit capsule Take 1 Capsule (2,000 units) by mouth once daily. 024 Active diphenhydrAMINE (BENADRYL) 25 mg capsule pt taking twice daily 024 Active DULoxetine 60 mg Delayed-release capsuleIndication s:Chronic pain disorder,Neuropat hy Take 1 Capsule (60 mg) by mouth once daily. 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 14 Capsule 025 Active apixaban 5 mg tabletIndications :Chronic deep vein thrombosis (DVT) of femoral vein, unspecified laterality (HC) Take 0.5 Tablets (2.5 mg) by mouth two times daily. 90 Tablet 1 025 Active pravastatin (PRAVACHOL) 40 mg tabletIndications :Hyperlipidemia, unspecified hyperlipidemia type TAKE ONE TABLET BY MOUTH AT BEDTIME 90 Tablet 025 Active cephalexin 500 mg capsuleIndication s:Complicated UTI (urinary tract infection) Take 1 Capsule (500 mg) by mouth three times daily for 7 days. 21 Capsule 025 2024 Active pravastatin 40 mg tabletIndications :Hyperlipidemia, unspecified hyperlipidemia type Take 1 Tablet (40 mg) by mouth at bedtime. 90 Tablet 025 2024 Discontinued Hospital, Clinic, or Other Facility Administered Medication Ordered Dose Route Frequency Start Date End Date Status cefTRIAXone (ROCEPHIN) injection 1 gIndications:urinary tract infection 1 g IM ONE TIME 11/28/2024 11/28/2024 Ended Active Problems Problem Noted Date Diagnosed Date Neuropathy 08/06/2024 Overview (08/06/2024): Peripheral sensory and due to lumbar radiculopathy see EMG from [facility] 2019 Prediabetes 04/21/2024 Factor 5 Leiden mutation, heterozygous [...] right superficial femoral/popliteal clot on u/s at [facility] 05/03/05 Gastroesophageal reflux disease with esophagitis Resolved [...] to the patient. Hilda Jett MD, FACP, FS, [facility] Vascular Medicine Post-traumatic seroma 04/13/20092023 Colitis 12/08/2007 03/18/2024 Urethral injury 10/28/2007 03/18/2024 Overview (03/18/2024): disruption CHOLELITHIASIS 05/05/2005 05/15/2016 RUQ PAIN 05/05/2005 05/15/2016 HYPOXIA 05/05/2005 05/15/2016 Chronic pain disorder 2023 Overview (07/23/2019): Regular tramadol use,#120 should last 30 days. Strict. Encounter for screening colonoscopy 03/18/2024 Encounters Date Type Department Care Team Description 11/28/2024 5:48 PM CDT - 11/28/2024 6:23 PM CDT Emergency [facility] [address] [place] [address] 11/28/2024 5:40 PM CDT - 11/28/2024 11:59 PM CDT Hospital Encounter [facility] [address] [facility] [address] Em Ortiz, ED Gross hematuria; Urinary hesitancy 11/28/2024 4:05 PM CDT Office Visit [facility] [address] [place] [phone] Em Ortiz, ED Blood In Urine 11/28/2024 Travel 11/28/2024 Nurse Triage [address] [phone] Juanis Carrero NP Urinary Problem 11/28/[address] [phone] Juanis Carrero NP Refill Request (celecoxib) 11/17/2024 3:15 PM CDT Ancillary Procedure [facility] [address] [place] [address] 11/17/2024 9:30 AM CDT Ancillary Procedure [facility] [address] [place] [address] 11/17/2024 9:00 AM CDT Office Visit [facility] [address] [place] [address] Ashley De PA Foot Injury (Right) 11/17/2024 Travel 11/07/[address] [phone] Juanis Carrero NP Refill Request (Pravastatin) 10/29/2024 Nurse Triage [address] [phone] Juanis Carrero NP Foot Pain/problem 10/22/[address] [phone] Juanis Carrero NP Refill Request (Eliquis) from Last 3 Months Immunizations Immunization Administration Dates Next Due COVID-19 vaccine ([employer] NTech 30mcg/0.3mL) 12YO+ BIVALENT PF, MDV 09/14/2022 COVID-19 vaccine ([employer] NTech 30mcg/0.3mL) 12YO+ GRACIELA-SUCROSE PF, MDV 10/03/2021 COVID-19 vaccine ([employer] NTech 30mcg/0.3mL) PF, MDV 02/04/2021,07/13/2020,06/22/2020 HepA-HepB (Twinrix) [...] Not Answered Alcohol Use Standard Drinks/Week Comments Yes 0 (1 standard drink = 0.6 oz pure alcohol) drinks 3-4 drinks a day/beer and mixed drink PHQ-2 Answer Date Recorded PHQ-2 TOTAL SCORE 0 08/06/2024 Social Connections Answer Date Recorded Do you [...] on file 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 Gender Identity Not on file Sexual Orientation Not on file 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 Not on file Not on file Obstetrics History Last Filed Vital Signs Vital Sign Reading Time Taken Comments Blood Pressure 172/81 11/28/2024 6:38 PM CDT Pulse 89 11/28/2024 6:38 PM CDT Temperature 36.9 C (98.4 F) 11/28/2024 4:21 PM CDT Respiratory Rate 20 11/28/2024 6:38 PM CDT Oxygen Saturation 96% 11/28/2024 6:38 PM CDT Inhaled Oxygen Concentration - - Weight 117.5 kg (259 lb) 11/28/2024 4:21 PM CDT Height 175.3 cm (5' 9) 08/06/2024 1:06 PM CDT Body Mass Index 38.25 08/06/2024 1:06 PM CDT Plan of Treatment Upcoming Encounters Date Type Department Care Team (Late st Contact Info) Description 12/15/2024 1:05 PM CDT Office Visit [address] [phone] Juanis Carrero, CAMP COOK [address] [facility] [place] [address] Health Maintenance Due Date Last Done Comments Tetanus booster 05/27/2024 05/27/2014, 10/28/2007 COVID-19 vaccine series ( season) 2024 02/05/2024, 03/15/2023, 09/14/2022, Additional history exists Influenza Vaccine (#1) 2024 , 03/15/2023, 02/14/2022, Additional history exists BMI (ht and wt on same day) for age 18+ 08/06/2025 08/06/2024, 06/16/2024, 05/29/2023, Additional history exists Depression screening for age 12+ 08/06/2025 08/06/2024, 05/16/2023, 05/16/2023, Additional history exists Medicare Wellness for age 65+ 08/07/2025, 05/16/2023, 08/05/2020, Additional history exists Lipids for age 45-75 08/06/2029 08/06/2024, 05/16/2023, 05/31/2022, Additional history exists Colonoscopy through age 75 07/21/203107/20, 07/17/2011, 04/01/2007, Additional history exists Hepatitis C screening for ag e 18-79 Completed 06/10/2018, 05/15/2016 Hepatitis B series for 19+ Completed 06/10, 06/28/2017, 05/15/2016 Pneumococcal series for age 50+ Completed 0, 06/28/2017 Zoster (shingles) series for age 50+ Completed 10/03/2021, 08/03/2021 RSV vaccine for adults or Completed 04/18/2023 Procedures Procedure Name Priority Date/Time Associated Diagnosis Comments CT ABDOMEN PELVIS W STAT 11/28/2024 6 :30 PM CDT Gross hematuria Urinary hesitancy CBC WITH AUTO DIFFERENTIAL STAT 11/28/2024 5:39 PM CDT Gross hematuria Urinary hesitancy BASIC METABOLIC PANEL STAT 11/28/2024 5:39 PM CDT Gross hematuria Urinary hesitancy CBC WITH AUTO DIFFERENTIAL STAT 11/28/2024 5:39 PM CDT Gross hematuria Urinary hesitancy URINALYSIS MICROSCOPIC STAT 11/28/2024 4:19 PM CDT Urinary symptom or sign UA W/ SEDIMENT EXAM REFLEXED PER CRITERIA STAT 11/28/2024 4:19 PM CDT Urinary symptom or sign US VENOUS LOWER EXTREMITY RIGHT TYRESE 11/17/2024 3:46 PM CDT Abnormal coagulation profile XR FOOT 3 VIEWS RIGHT TYRESE 11/17/2024 9:35 AM CDT Foot pain, right LIPID PANEL Routine 08/06/2024 2:18 PM CDT Hyperlipidemia, unspecified hyperlipidemia type COLONOSCOPY 07/20/2021 10:54 AM CDT ANTI HCV Routine 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 You may view this report before your referring provider. If you have questions, please contact your health care provider. Indication: Hematuria, urinary hesitancy gross hematuria Technique: Volumetric multidetector CT images of the abdomen and pelvis were obtained after the administration of intravenous contrast. 100 cc Omnipaque 300 low osmolar intravenous contrast Comparison: CT abdomen and pelvis without contrast August 13, 2017 Findings: There is basilar atelectasis and parenchymal scar. The liver is enlarged with mild hepatic steatosis and hepatomegaly. No focal abnormality. The portal vein is patent. Prior cholecystectomy. There is no significant common biliary ductal dilatation or abrupt cut off. The spleen is normal in enhancement and size. The stomach and duodenum are grossly unremarkable. The pancreas is normal in enhancement without significant atrophy. The adrenal glands are unremarkable. The kidneys demonstrate preserved corticomedullary differentiation without evidence of obstructive uropathy. There is demonstration prior postoperative change of the small bowel with partial herniation of a loop of small bowel within a left lower quadrant abdominal wall defect which may represent minimal focal obstructive changes seen best on series 2, image 136. No obvious incarceration or strangulation. The appendix is likely surgically absent. Stable shotty central mesenteric lymph nodes. The aorta is nonaneurysmal. There is no significant atherosclerotic disease appreciated. Extensive traumatic changes of the bony pelvis with complex fractures of the bilateral pubic rami are again appreciated with diastasis of the pubic symphysis and partial herniation of the urinary bladder similar to previous exam with demonstration of mild to moderate nodular thickening of the bladder dome with apparent tethering to the adjacent abdominal wall. The remaining pelvic viscera are otherwise grossly within normal limits. There is no free fluid or free air. Posttraumatic and postoperative changes of the iliac bones and sacrum are again appreciated. There is a chronic fluid collection along the right hip soft tissues. The lumbar vertebral body heights are stable from comparison exam with endplate Schmorl`s defects and moderate to severe degenerative disc disease. Impression: 1. Redemonstration of complex chronic fractures of the bony pelvis including the pubic symphysis and pubic rami with partial herniation of the urinary bladder with focal somewhat nodular thickening of the bladder dome with questionable mild tethering along the peritoneal reflection which could represent minimal sequela of inflammatory change, underlying neoplastic changes may be difficult to exclude. 2. No evidence of hydronephrosis or obstructive radiopaque calculus. 3. Redemonstration of a left lower quadrant abdominal wall defect with herniation of the adjacent loop of small bowel with moderate focal dilatation of small bowel in the left hemiabdomen which may represent minimal partial obstructive changes. No evidence of obvious incarceration. Please note that all CT scans at this facility use dose modulation, iterative reconstruction, and/or weight-based dosing when appropriate to reduce radiation dose to as low as reasonably achievable. Dictated by Delroy Pritchard MD @ 11/28/2024 7:12:42 PM (Electronically Signed) Procedure Note Delroy Pritchard MD - 11/28/2024 For Patients: As a result of the Cures Act, medical imagingexams and procedure reports are released immediately into your electronicmedical record. You may view this report before your referring provider.If you have questions, please contact your health care provider. Indication: Hematuria, urinary hesitancy gross hematuria Technique: Volumetric multidetector CT images of the abdomen and pelvis were obtainedafter the administration of intravenous contrast. 100 cc Omnipaque 300 low osmolar intravenous contrast Comparison: CT abdomen and pelvis without contrast August 13, 2017 Findings: There is basilar atelectasis and parenchymal scar. The liver is enlarged with mild hepatic steatosis and hepatomegaly. Nofocal abnormality. The portal vein is patent. Prior cholecystectomy. There is no significant common biliary ductal dilatation or abrupt cutoff. The spleen is normal in enhancement and size. The stomach and duodenum are grossly unremarkable. The pancreas is normal in enhancement without significant atrophy. The adrenal glands are unremarkable. The kidneys demonstrate preserved corticomedullary differentiation withoutevidence of obstructive uropathy. There is demonstration prior postoperative change of the small bowel withpartial herniation of a loop of small bowel within a left lower quadrantabdominal wall defect which may represent minimal focal obstructivechanges seen best on series 2, image 136. No obvious incarceration orstrangulation. The appendix is likely surgically absent. Stable shotty central mesenteric lymph nodes. The aorta is nonaneurysmal. There is no significant atheroscleroticdisease appreciated. Extensive traumatic changes of the bony pelvis with complex fractures ofthe bilateral pubic rami are again appreciated with diastasis of the pubicsymphysis and partial herniation of the urinary bladder similar toprevious exam with demonstration of mild to moderate nodular thickening ofthe bladder dome with apparent tethering to the adjacent abdominal wall.The remaining pelvic viscera are otherwise grossly within normal limits. There is no free fluid or free air. Posttraumatic and postoperative changes of the iliac bones and sacrum areagain appreciated. There is a chronic fluid collection along the right hipsoft tissues. The lumbar vertebral body heights are stable from comparison exam withendplate Schmorl`s defects and moderate to severe degenerative discdisease. Impression: 1. Redemonstration of complex chronic fractures of the bony pelvisincluding the pubic symphysis and pubic rami with partial herniation ofthe urinary bladder with focal somewhat nodular thickening of the bladderdome with questionable mild tethering along the peritoneal reflectionwhich could represent minimal sequela of inflammatory change, underlyingneoplastic changes may be difficult to exclude. 2. No evidence of hydronephrosis or obstructive radiopaque calculus. 3. Redemonstration of a left lower quadrant abdominal wall defect withherniation of the adjacent loop of small bowel with moderate focaldilatation of small bowel in the left hemiabdomen which may representminimal partial obstructive changes. No evidence of obviousincarceration. Please note that all CT scans at this facility use dose modulation,iterative reconstruction, and/or weight-based dosing when appropriate toreduce radiation dose to as low as reasonably achievable. Dictated by Delroy Pritchard MD @ 11/28/2024 7:12:42 PM (Electronically Signed) Em Ortiz NP CT Final Result * (ABNORMAL) CBC WITH AUTO DIFFERENTIAL (11/28/2024 5:39 PM CDT) WHITE BLOOD COUNT 9.3 4.5 - 11.0 thou/cu mm 11/28/2024 6:13 PM T [facility] RED BLOOD COUNT 4.67 4.30 - 5.90 mil/cu mm 11/28/2024 6:13 PM T [facility] HEMOGLOBIN 13.9 13.5 - 17.5 g/dL 11/28/2024 6:[address] [facility] HEMATOCRIT 41.2 37.0 - 53.0 % 11/28/2024 6:[address] [facility] MCV 88 80 - 100 fL 11/28/2024 6:[address] [facility] MCH 29.8 26.0 - 34.0 pg 11/28/2024 6:[address] [facility] MCHC 33.7 32.0 - 36.0 g/dL 11/28/2024 6:[address] [facility] RDW 14.0 11.5 - 15.5 % 11/28/2024 6:13 PM CDT [facility] PLATELET COUNT 277 140 - 440 thou/cu mm 11/28/2024 6:13 PM CDT [facility] MPV 8.7 6.5 - 11.0 fL 11/28/2024 6:13 PM T [facility] % NEUT 61.7 % 11/28/2024 6:13 PM T [facility] % LYMPH 22.3 % 11/28/2024 6:[address] [facility] % MONO 11.6 % 11/28/2024 6:[address] [facility] % EOS 3.8 % 11/28/2024 6:[address] [facility] % BASO 0.6 % 11/28/2024 6:13 PM T [facility] ABSOLUTE NEUTROPHILS 5.7 1.7 - 7.0 thou/cu mm 11/28/2024 6:13 PM T [facility] ABSOLUTE LYMPHOCYTES 2.1 0.9 - 2.9 thou/cu mm 11/28/2024 6:[address] [facility] ABSOLUTE MONOCYTES 1.1(H) <0.9 thou/cu mm 11/28/2024 6:[address] [facility] ABSOLUTE EOSINOPHILS 0.4 <0.5 thou/cu mm 11/28/2024 6:13 PM T [facility] ABSOLUTE BASOPHILS 0.1 <0.3 thou/cu mm 11/28/2024 6:13 PM T [facility] Blood BLOOD SPECIMEN / Unknown [facility] / Unknown 11/28/2024 5:39 PM CDT 11/28/2024 6:02 PM CDT us Em Ortiz NP HEMATOLOGY Final Result [facility] [address] [place] [address] * (ABNORMAL) STAT Basic Metabolic Panel BMP (11/28/2024 5:39 PM CDT) SODIUM 137 136 - 145 mmol/L 11/28/2024 6:[address] [facility] POTASSIUM 3.8 3.5 - 5.1 mmol/L 11/28/2024 6:[address] [facility] CHLORIDE 101 98 - 107 mmol/L 11/28/2024 6:[address] [facility] CO2,TOTAL 20(L) 22 - 29 mmol/L 11/28/2024 6:[address] [facility] ANION GAP 16 5 - 18 11/28/2024 6:[address] [facility] GLUCOSE 97 70 - 99 mg/dL 11/28/2024 6:[address] [facility] CALCIUM 9.4 8.8 - 10.4 mg/dL 11/28/2024 6:[address] [facility] Comment: Reference ranges for this test were updated on 03/04/2024 to reflect our healthy population more accurately. Reference range changes are not retroactively applied to results, but previous results using the same methodology can be interpreted in the context of the new reference range. BUN 13 8 - 23 mg/dL 11/28/2024 6:[address] [facility] CREATININE 0.83 0.70 - 1.20 mg/dL 11/28/2024 6:[address] [facility] BUN/CREAT RATIO 16 10 - 20 6:[address] [facility] eGFR >90 >90 mL/min/1.7 3m2 11/28/2024 6:[address] [facility] Comment:As of 2021, eG FR is calculated by the CKD-EPI creatinine equation without race adjustment. eGFR can be influenced by muscle mass, exercise, and diet. The reported eGFR is an estimation only and is only applicable if the renal function is stable. Blood BLOOD SPECIMEN / Unknown [facility] / Unknown 11/28/2024 5:39 PM CDT 11/28/2024 6:02 PM CDT us Em Ortiz NP CHEMISTRY Final Result [facility] [address] [place] [address] * (ABNORMAL) URINALYSIS MICROSCOPIC (11/28/2024 4:19 PM CDT) RBC >100(A) 0-2, None Seen /HPF 11/28/2024 5:06 PM CDT [facility] WBC 26-50(A) 0-2, 3-5, None Seen /HPF 11/28/2024 5:06 PM CDT [facility] BACTERIA Many(A) None Seen, Rare, Few Bacteria/H PF 11/28/2024 5:06 PM CDT [facility] EPITHELIAL CELLS Few None Seen, Few Epi/HPF 11/28/2024 5:06 PM T [facility] Urine URINE SPECIMEN / Unknown Non-Blood / Unknown 11/28/2024 4:19 PM CDT 11/28/2024 4:19 PM CDT Em Ortiz CAMP COOK URINE Final Result Performing Organization Address [facility] de Phone Number [facility] [address] [place] [address] * (ABNORMAL) UA W/ SEDIMENT EXAM REFLEXED PER CRITERIA [76383.2] - STAT (11/28/2024 4:19 PM CDT) COLOR Red(A) Yellow Color 11/28/2024 5:01 PM CDT [facility] CLARITY Cloudy(A) Clear Clarity 11/28/2024 5:01 PM T [facility] SPECIFIC GRAVITY,URINE Unable to interpret due to interfering substance(A) 1.010, 1.015, 1.020, 1.025 11/28/2024 5:01 PM T [facility] PH,URINE Unable to interpret due to interfering substance(A) 6.0, 7.0, 8.0, 5.5, 6.5, 7.5, 8.5 11/28/2024 5:01 PM CDT [facility] UROBILINOGEN, QUALITATIVE Unable to interpret due to interfering substance(A) Normal EU/dl 11/28/2024 5:01 PM CDT [facility] PROTEIN, URINE Unable to interpret due to interfering substance(A) Negative mg/dL 11/28/2024 5:01 PM CDT [facility] GLUCOSE, URINE Unable to interpret due to interfering substance(A) Negative mg/dL 11/28/2024 5:01 PM T [facility] KETONES,URINE Unable to interpret due to interfering substance(A) Negative mg/dL 11/28/2024 5:01 PM T [facility] BILIRUBIN,URI NE Unable to interpret due to interfering substance(A) Negative 11/28/2024 5:01 PM T [facility] OCCULT BLOOD,URINE Unable to interpret due to interfering substance(A) Negative 11/28/2024 5:01 PM T [facility] NITRITE Unable to interpret due to interfering substance(A) Negative 11/28/2024 5:[address] [facility] LEUKOCYTE ESTERASE Unable to interpret due to interfering substance(A) Negative 11/28/2024 5:01 PM T [facility] Urine URINE SPECIMEN / Unknown Non-Blood / Unknown 11/28/2024 4:19 PM CDT 11/28/2024 4:19 PM CDT Em Ortiz NP URINE Final Result Performing Organization Address [facility] Co de Phone Number [facility] [address] [place] [phone] * US VENOUS LOWER EXTREMITY RIGHT (11/17/2024 3:46 PM CDT) Anatomical Region Laterality Modality LEGS, LEG R, Abdomen Ultrasound 11/17/2024 3:58 PM CDT Impressions 11/17/2024 3:58 PM CDT Normal right lower extremity venous ultrasound, no sign of deep venous thrombosis. Dictated by Jeff Royal MD @ 11/17/2024 3:58:14 PM (Electronically Signed) Narrative 11/17/2024 3:58 PM CDT For Patients: As a result of the Cures Act, medical imaging exams and procedure reports are released immediately into your electronic medical record. You may view this report before your referring provider. If you have questions, please contact your health care provider. INDICATION: Right calf tenderness TECHNIQUE: Ultrasound venous duplex lower right extremity. Compression venous exam was performed using orozco-scale, color Doppler, and spectral Doppler imaging. COMPARISON: 10/13/2015 FINDINGS: Sonographic imaging demonstrates the right common femoral, deep femoral, superficial femoral, popliteal, posterior tibial and greater saphenous and the contralateral left common femoral veins to be fully compressible with normal color Doppler blood flow. Procedure Note Jeff Royal MD - 11/17/2024 For Patients: As a result of the Cures Act, medical imagingexams and procedure reports are released immediately into your electronicmedical record. You may view this report before your referring provider.If you have questions, please contact your health care provider. INDICATION: Right calf tenderness TECHNIQUE: Ultrasound venous duplex lower right extremity. Compression venous examwas performed using orozco-scale, color Doppler, and spectral Dopplerimaging. COMPARISON: 10/13/2015 FINDINGS: Sonographic imaging demonstrates the right common femoral, deep femoral,superficial femoral, popliteal, posterior tibial and greater saphenous andthe contralateral left common femoral veins to be fully compressible withnormal color Doppler blood flow. IMPRESSION: Normal right lower extremity venous ultrasound, no sign of deep venousthrombosis. Dictated by Jeff Royal MD @ 11/17/2024 3:58:14 PM (Electronically Signed) Ashley [facility]GAD[facility] US Final Result * XR FOOT 3 VIEWS RIGHT (11/17/2024 9:35 AM CDT) Anatomical Region Laterality Modality FEET, FOOT R Computed Radiogr aphy 11/17/2024 10:0 4 AM CDT Impressions 11/17/2024 10:04 AM CDT 1. No specific/acute findings to explain the clinical history of pain, not otherwise described. 2. Chronic appearing irregular linear lucency with sclerotic margin traversing the proximal 2nd metatarsal consistent with atrophic nonunion of a nondisplaced fracture, otherwise age indeterminate. Please correlate with the patient`s clinical history and/or any prior recent imaging evaluation, if available. 3. No focal soft tissue swelling is identified. Possible mild diffuse soft tissue swelling of the medial aspect of the midfoot extending to the medial periarticular soft tissues of the ankle and lower leg. Soft tissue swelling is better assessed on clinical exam. Dictated by Walt House MD @ 11/17/2024 10:04:27 AM (Electronically Signed) Narrative 11/17/2024 10:04 AM CDT For Patients: As a result of the Cures Act, medical imaging exams and procedure reports are released immediately into your electronic medical record. You may view this report before your referring provider. If you have questions, please contact your health care provider. INDICATION: M79.671 Foot pain, right ICD-10-CM Foot pain, right (Sic) No additional clinical history is given. COMPARISON: No recent prior comparison study. Comparison is made to an examination dated 01/22/2009 TECHNIQUE: Three views of the right foot. FINDINGS: Mineralization: Diffuse osteopenia. Alignment: Normal. Bones and Joints: Chronic appearing irregular linear lucency with sclerotic margin traversing the proximal 2nd metatarsal consistent with atrophic nonunion of a nondisplaced fracture, otherwise age indeterminate. Please correlate with the patient`s clinical history and any prior recent imaging evaluation if available. No acute fracture is identified. 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 Soft Tissues: No focal soft tissue swelling is identified. Possible mild diffuse soft tissue swelling of the medial aspect of the midfoot extending to the medial periarticular soft tissues of the ankle and lower leg. Soft tissue swelling is better assessed on clinical exam. Arterial calcifications are noted incidentally. Procedure Note Walt House MD - 11/17/2024 For Patients: As a result of the Cures Act, medical imagingexams and procedure reports are released immediately into your electronicmedical record. You may view this report before your referring provider.If you have questions, please contact your health care provider. INDICATION: M79.671 Foot pain, right ICD-10-CM Foot pain, right (Sic) No additional clinical history is given. COMPARISON: No recent prior comparison study. Comparison is made to an examinationdated 01/22/2009 TECHNIQUE: Three views of the right foot. FINDINGS: Mineralization: Diffuse osteopenia. Alignment: Normal. Bones and Joints: Chronic appearing irregular linear lucency withsclerotic margin traversing the proximal 2nd metatarsal consistent withatrophic nonunion of a nondisplaced fracture, otherwise age indeterminate.Please correlate with the patient`s clinical history and any prior recentimaging evaluation if available. 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 Soft Tissues: No focal soft tissue swelling is identified. Possible milddiffuse soft tissue swelling of the medial aspect of the midfoot extendingto the medial periarticular soft tissues of the ankle and lower leg. Softtissue swelling is better assessed on clinical exam. Arterialcalcifications are noted incidentally. IMPRESSION: 1. No specific/acute findings to explain the clinical history of pain, nototherwise described. 2. Chronic appearing irregular linear lucency with sclerotic margintraversing the proximal 2nd metatarsal consistent with atrophic nonunionof a nondisplaced fracture, otherwise age indeterminate. Please correlatewith the patient`s clinical history and/or any prior recent imagingevaluation, if available. 3. No focal soft tissue swelling is identified. Possible mild diffuse softtissue swelling of the medial aspect of the midfoot extending to themedial periarticular soft tissues of the ankle and lower leg. Soft tissueswelling is better assessed on clinical exam. Dictated by Walt House MD @ 11/17/2024 10:04:27 AM (Electronically Signed) [facility] Final Result * (ABNORMAL) LIPID PANEL (08/06/2024 2:18 PM CDT) CHOLESTEROL, TOTAL 204(H) <200 mg/dL [facility] HDL CHOLESTEROL 70 > OR = 40 mg/dL [facility] TRIGLYCERIDES 178(H) <150 mg/dL [facility] LDL-CHOLESTEROL 104(H) mg/dL (calc) [facility] Comment: Reference range: <100 Desirable range <100 mg/dL for primary prevention; <70 mg/dL for patients with CHD or diabetic patients with > or = 2 CHD risk factors. LDL-C is now calculated using the Eileen calculation, which is a validated novel method providing better accuracy than the Friedewald equation in the estimation of LDL-C. Caio MORAN et al. DIANA. 2013;310(19): 5784-9926 (http://education.aCommerce/faq/ECD530) CHOL/HDLC RATIO 2.9 <5.0 (calc) [facility] NON HDL CHOLESTEROL 134(H) <130 mg/dL (calc) [facility] Comment: For patients with diabetes plus 1 major ASCVD risk factor, treating to a non-HDL-C goal of <100 mg/dL (LDL-C of <70 mg/dL) is considered a therapeutic option. Blood BLOOD SPECIMEN / Unknown 08/06/2024 2:18 PM CDT 08/06/2024 2:21 PM CDT Narrative [email or web address] - 08/07/2024 4:04 AM CDT FASTING:NO FASTING: NO Juanis Carrero NP CHEMISTRY Final Result [facility] [address] [place] [address], [facility] [address] [place] [address] * COLONOSCOPY (07/20/2021 10:54 AM CDT) 07/20/2021 10:5 4 AM CDT Narrative Transcriptions Taiwo Lynn MD - 07/20/2021 11:42 AM CDT Patient Name: Jarred Muñoz Procedure Date: 07/20/2021 Gender: Male Date of : 1950 Admit Type: Ambulatory Procedure: Colonoscopy Proceduralist: Taiwo Lynn [facility] Indications/Pre-Op Diagnosis: Screening for colorectal malignantneoplasm Medications: [...] electronically. Note Initiated On: 07/20/2021 10:54 AM us Taiwo Lynn MD PROCEDURE ORD Final Res ult * ANTI HCV (06/10/2018 10:57 AM MARINE ENGINE MECHANIC) HEPATITIS C ANTIBODY Non-React [place] Non-React [place]on 06/10/2018 8:03 PM MARINE ENGINE MECHANIC [facility] Comment:Antibodies to HCV no t detected; does not exclude the possibility of exposure to HCV. Blood BLOOD SPECIMEN / Unknown Venipuncture / Unknown 06/10/2018 10:57 AM MARINE ENGINE MECHANIC 06/10/2018 10:57 AM MARINE ENGINE MECHANIC us Gage Casillas DO SEND OUTS Final Res ult [facility] [address] [place] [address], from Last 3 Months or Most Recently Relevant to Health Maintenance Insurance [facility] ADVANTAGE [employer] [place] [place] BLUE MR PB ONLY [employer] [place] BLUE HB ONLY MEDICARE PART B HB ONLY MEDICARE PART A HB ONLY Cristian [place] [id number] MEDICARE PB ONLY [employer] [place] [place] BLUE MR PB ONLY Advance Directives * [...] 8:32 PM 05/09/2005 1:18 PM Care Teams Guest Relations Agent Relationship Specialty Start Date End Date Juanis Carrero NP [address] [place] [address] Mary [place] [address] PCP - General Nurse Practitioner - Family 06/12/24
[2024-11-29 11:25] LABS: Hematocrit 39.5 % (37.0-53.0); Hemoglobin* 13.0 gm/dL (13.5-17.5); Immature Granulocytes Abs Auto 0.03 K/uL (0.00-0.30); Immature Granulocytes Pct Auto 0.4 %; Lymphocytes Absolute Auto 1.62 K/uL (0.90-2.90); Mean Corpuscular HGB Conc 33 gm/dL (32-36); Mean Corpuscular Hemoglobin 29 pg (26-34); Mean Corpuscular Volume 89 fL (80-100); RDW Coefficient of Variation % 14.4 % (11.5-15.5); Red Blood Count 4.43 m/uL (4.30-5.90); White Blood Count* 7.73 K/uL (4.50-11.00)
[2024-11-29 11:27] LABS: Chloride* 105 mmol/L (96-114); Sodium* 137 mmol/L (135-149)
[2024-11-29 11:28] LABS: Potassium* 3.8 mmol/L (3.6-5.1)
[2024-11-29 11:30] LABS: Blood Urea Nitrogen* 14 mg/dL (7-30); Creatinine* 0.8 mg/dL (0.5-1.5); Estimated Glomerular Filt Rate 94 ml/min
[2024-11-29 11:31] LABS: Anion Gap 9 mEq/L (7-15); Calcium* 8.9 mg/dL (8.4-10.6); Carbon Dioxide* 23 mmol/L (20-32); Glucose* 207 mg/dL (60-115)
[2024-11-29 11:33] LABS: Slide Review Reflex No
[2024-11-29] MEDS: TENECTEPLASE 5 MG/ML inj 25 MG IVP (11:33)
--- NOTE | 2024-11-29 11:35 | ED.NEUROSD ---
HPI - Neuro Symptoms/Deficit General Date Seen: 11/29/24 Chief Complaint: Neuro Symptoms/Altered Deficit Stated Complaint: stroke Time Seen by Provider: 11/29/24 10:50 Source: patient and EMS Mode of arrival: EMS Limitations: no limitations History of Present Illness HPI Narrative: Patient is a 74-year-old male presenting via EMS for stroke. Code stroke was called via EMS. At 08:00 he was feeling well but then started to notice his left arm was feeling weaker and he was unable to tie his shoes. He then also fell and hit his head after this. He eventually was able to get to the local EMS station. He drove there himself. When he arrived he showing signs of a stroke but was fully alert and oriented. For EMS they felt like he started to have some confusion during the trip here but now seems to be no longer confused. For them he left arm weakness left facial droop and slurred speech. Patient was sent straight to CT scanner. Related Data Home Medications ?Medication ?Instructions ?Recorded ?Confirmed acetaminophen 650 mg 650 mg PO Q8H PRN 04/09/24 11/29/24 tablet,extended release allopurinol 100 mg tablet 300 mg PO DAILY 04/09/24 09/15/24 duloxetine 60 mg capsule,delayed 60 mg PO DAILY 04/09/24 11/29/24 release pantoprazole 40 mg tablet,delayed 40 mg PO DAILY 04/09/24 11/29/24 release cholecalciferol (vitamin D3) 50 50 mcg PO QDAY 05/19/24 09/15/24 mcg (2,000 unit) capsule diphenhydramine HCl 25 mg capsule 25 mg PO BID PRN 05/19/24 09/15/24 (Allergy Relief (diphenhydramine)) multivitamin (Multiple Vitamins 1 tab PO QDAY 05/19/24 11/29/24 tablet) pravastatin 40 mg tablet 40 mg PO DAILY 11/29/24 11/29/24 Previous Rx's ?Medication ?Instructions ?Recorded apixaban 5 mg tablet (Eliquis) 5 mg PO BID #60 tabs 05/14/24 apixaban 5 mg (74 tabs) tablets in 5 mg PO BID #74 ea 05/19/24 a dose pack (Eliquis DVT-PE Treat 30D Start) Allergies Allergy/AdvReac Type Severity Reaction Status Date / Time iodine Allergy Severe throat Verified 11/29/24 11:41 swelling shellfish derived AdvReac Severe Anaphylaxis Verified 11/29/24 11:41 lorazepam AdvReac hallucinati Verified 11/29/24 11:41 ons Review of Systems Status of ROS: Reports: unobtainable due to medical condition [facility] Medical History Health care directive on file ?Z78.9 - Other specified health status (ICD-10) Prediabetes (04/21/24) ?R73.03 - Prediabetes (ICD-10) Noncompliance with medications (06/10/19) ?Z91.148 - Patient's other noncompliance with medication regimen for other reason (ICD-10) Ventral hernia with obstruction, without gangrene (08/15/17) ?K43.6 - Other and unspecified ventral hernia with obstruction, without gangrene (ICD-10) Prothrombin gene mutation (10/01/18) ?D68.52 - Prothrombin gene mutation (ICD-10) Pes anserinus tendinitis of right lower extremity (01/31/19) ?M76.891 - Other specified enthesopathies of right lower limb, excluding foot (ICD-10) Pelvic fracture (10/28/07) ?S32.9XXA - Fracture of unspecified parts of lumbosacral spine and pelvis, initial encounter for closed fracture (ICD-10) Left nephrolithiasis (08/15/17) ?N20.0 - Calculus of kidney (ICD-10) Hyperlipidemia (07/02/22) ?E78.5 - Hyperlipidemia, unspecified (ICD-10) Gastroesophageal reflux disease with esophagitis ?K21.00 - Gastro-esophageal reflux disease with esophagitis, without bleeding (ICD-10) Failure of outpatient treatment (08/15/17) ?Z78.9 - Other specified health status (ICD-10) Factor 5 Leiden mutation, heterozygous (09/27/23) ?D68.51 - Activated protein C resistance (ICD-10) Dvt femoral (deep venous thrombosis) (05/05/05) ?I82.419 - Acute embolism and thrombosis of unspecified femoral vein (ICD-10) Chronic pain of right knee (01/31/19) ?M25.561 - Pain in right knee (ICD-10) ?G89.29 - Other chronic pain (ICD-10) Chronic pain disorder (06/15/16) ?G89.4 - Chronic pain syndrome (ICD-10) B12 deficiency (07/08/17) ?E53.8 - Deficiency of other specified B group vitamins (ICD-10) Arthritis of right knee (01/31/19) ?M17.11 - Unilateral primary osteoarthritis, right knee (ICD-10) Abnormal glucose (09/27/23) ?R73.09 - Other abnormal glucose (ICD-10) Alcohol use disorder ?F10.90 - Alcohol use, unspecified, uncomplicated (ICD-10) Gout ?M10.9 - Gout, unspecified (ICD-10) Personal history of PE (pulmonary embolism) ?Z86.711 - Personal history of pulmonary embolism (ICD-10) Unspecified closed fracture of pelvis ?S32.9XXA - Fracture of unspecified parts of lumbosacral spine and pelvis, initial encounter for closed fracture (ICD-10) Urethral injury ?S37.30XA - Unspecified injury of urethra, initial encounter (ICD-10) Colitis ?K52.9 - Noninfective gastroenteritis and colitis, unspecified (ICD-10) Post-traumatic seroma ?T79.2XXA - Traumatic secondary and recurrent hemorrhage and seroma, initial encounter (ICD-10) Abnormal glucose ?R73.09 - Other abnormal glucose (ICD-10) Chronic pain of right knee ?M25.561 - Pain in right knee (ICD-10) ?G89.29 - Other chronic pain (ICD-10) Prothrombin gene mutation ?D68.52 - Prothrombin gene mutation (ICD-10) Failure of outpatient treatment ?Z78.9 - Other specified health status (ICD-10) Chronic pain disorder ?G89.4 - Chronic pain syndrome (ICD-10) Left nephrolithiasis ?N20.0 - Calculus of kidney (ICD-10) Pelvic fracture ?S32.9XXA - Fracture of unspecified parts of lumbosacral spine and pelvis, initial encounter for closed fracture (ICD-10) Pes anserinus tendinitis of right lower extremity ?M76.891 - Other specified enthesopathies of right lower limb, excluding foot (ICD-10) Acquired varus deformity knee ?M21.169 - Varus deformity, not elsewhere classified, unspecified knee (ICD-10) Arthritis of right knee ?M17.11 - Unilateral primary osteoarthritis, right knee (ICD-10) Factor 5 Leiden mutation, heterozygous ?D68.51 - Activated protein C resistance (ICD-10) Ventral hernia with obstruction, without gangrene ?K43.6 - Other and unspecified ventral hernia with obstruction, without gangrene (ICD-10) Gastroesophageal reflux disease with esophagitis ?K21.00 - Gastro-esophageal reflux disease with esophagitis, without bleeding (ICD-10) Hyperlipidemia ?E78.5 - Hyperlipidemia, unspecified (ICD-10) B12 deficiency ?E53.8 - Deficiency of other specified B group vitamins (ICD-10) Dvt femoral (deep venous thrombosis) ?I82.419 - Acute embolism and thrombosis of unspecified femoral vein (ICD-10) Surgical History History of arthroplasty of left knee (01/31/19) ?Z96.652 - Presence of left artificial knee joint (ICD-10) History of arthroplasty of right knee (05/13/24) ?Z96.651 - Presence of right artificial knee joint (ICD-10) History of laparoscopic cholecystectomy ?Z90.49 - Acquired absence of other specified parts of digestive tract (ICD-10) History of partial surgical removal of colon ?Z90.49 - Acquired absence of other specified parts of digestive tract (ICD-10) History of cataract removal with insertion of prosthetic lens ?Z98.49 - Cataract extraction status, unspecified eye (ICD-10) ?Z96.1 - Presence of intraocular lens (ICD-10) History of appendectomy ?Z90.49 - Acquired absence of other specified parts of digestive tract (ICD-10) History of total left knee replacement (02/11/13) ?Z96.652 - Presence of left artificial knee joint (ICD-10) Social History What is your current living situation?: I presently have a place to live In the past 12 months, utilities in danger of being shut off: no In past 12 months, lack of transportation kept you from medical appts, meetings, work, or getting things needed for daily living: no In the past 12 mos, have been you worried that your food would run out before you had money to buy more?: never true In the past 12 mos, the food you bought just didn't last and you didn't have money to buy more?: never true Smoking Status: Never smoker Do you use any of these nicotine containing products: None Second hand tobacco smoke exposure: No How often do you have a drink containing alcohol: 4 or more times a week Alcohol type: beer and hard liquor How many standard drinks containing alcohol do you have on a typical day: 3 or 4 AUDIT-C Alcohol total score: 5 Non-prescribed substance use: denies use Caffeine: Yes How often does anyone, including family, friends and others, physically hurt you: never How often does anyone, including family, friends and others, insult or talk down to you: never How often does anyone, including family, friends and others, threaten you with harm: never How often does anyone, including family, friends and others, scream or curse at you: never service: No Exam Narrative: Exam Narrative: Const: Well-nourished, Well-developed, in moderate distress Eyes: PERRL, no conjunctival injection, and symmetrical lids, unable to look to the left. HENT: Atraumatic external nose and ears. Moist mucous membranes. Neck: Symmetric, trachea midline, No thyromegaly. CVS: RRR, No murmurs or gallops. Peripheral pulses 2+ and equal in all extremities RESP: Unlabored respiratory effort. Clear to auscultation bilaterally. GI: Nontender/Nondistended, No rebound or guarding. MSK:Extremities w/o deformity, Normal Active ROM Skin: Warm, Dry. No rashes or lesions. Neuro: Normal Muscle tone, left arm weakness and numbness. Unable to move left arm at all. Numbness to left leg. Is able to lift left leg come but only for a few seconds. Mild dysarthria. has left-sided limb ataxia. Left facial droop, left-sided hemianopsia Psych: Awake, Alert, & Oriented x3. Appropriate mood and affect. Const: Vital Signs, click to edit/add: Vital Signs - 24 hr 11/29/24 10:48 11/29/24 11:05 11/29/24 11:06 Temperature 97.0 F L Pulse Rate Pulse Rate [Pulse Oximeter] 104 H Respiratory Rate 16 Blood Pressure Blood Pressure [Le ft Upper Arm] 163/80 H Pulse Oximetry 90 90 94 Oxygen Delivery Me thod Room Air Oxygen Flow Rate 11/29/24 11:06 11/29/24 11:08 11/29/24 11:12 Temperature Pulse Rate 105 H 104 H 103 H Pulse Rate [Pulse Oximeter] Respiratory Rate 17 13 Blood Pressure 163/80 H 147/74 H Blood Pressure [Le ft Upper Arm] Pulse Oximetry 90 93 95 Oxygen Delivery Me thod Oxygen Flow Rate 11/29/24 11:15 11/29/24 11:17 11/29/24 11:30 Temperature Pulse Rate 108 H 103 H 101 H Pulse Rate [Pulse Oximeter] Respiratory Rate 15 14 22 Blood Pressure 155/77 H Blood Pressure [Le ft Upper Arm] Pulse Oximetry 94 98 90 Oxygen Delivery Me thod Oxygen Flow Rate 11/29/24 11:32 11/29/24 11:37 11/29/24 11:42 Temperature Pulse Rate 100 100 Pulse Rate [Pulse Oximeter] Respiratory Rate 24 19 13 Blood Pressure 148/79 H 148/72 H 150/77 H Blood Pressure [Le ft Upper Arm] Pulse Oximetry 91 90 Oxygen Delivery Me thod Oxygen Flow Rate 11/29/24 11:43 11/29/24 11:45 11/29/24 11:47 Temperature Pulse Rate 105 H 102 H Pulse Rate [Pulse Oximeter] Respiratory Rate 16 Blood Pressure 151/88 H Blood Pressure [Le ft Upper Arm] Pulse Oximetry 94 94 95 Oxygen Delivery Me thod Nasal Cannula Oxygen Flow Rate 2 Course Vital Signs Vital signs: Initial Vital Signs Temperature 97.0 F L 11/29/24 10:48 Temperature Source Temporal Artery Scan 11/29/24 10:48 Pulse Rate 104 H 11/29/24 10:48 Respiratory Rate 16 11/29/24 10:48 Blood Pressure 163/80 H 11/29/24 10:48 Blood Pressure Mean 107 H 11/29/24 10:48 Blood Pressure Position Supine 11/29/24 10:48 Pulse Oximetry 90 11/29/24 10:48 Oxygen Delivery Method Room Air 11/29/24 10:48 Vital Signs Temperature 97.0 F L 11/29/24 10:48 Pulse Rate 104 H 11/29/24 10:48 Respiratory Rate 16 11/29/24 10:48 Blood Pressure 163/80 H 11/29/24 10:48 Pulse Oximetry 90 11/29/24 10:48 Oxygen Delivery Method Room Air 11/29/24 10:48 Temperature 97.0 F L 11/29/24 10:48 Pulse Rate 102 H 11/29/24 11:47 Respiratory Rate 16 11/29/24 11:43 Blood Pressure 151/88 H 11/29/24 11:47 Pulse Oximetry 95 11/29/24 11:47 Oxygen Delivery Method Nasal Cannula 11/29/24 11:43 Oxygen Flow Rate 2 11/29/24 11:43 Medications Administered Medications: Discontinued Medications Generic Name Dose Route Start Last Admin Trade Name Freq PRN Reason Stop Dose Admin Tenecteplase 25 mg 11/29/24 11:21 11/29/24 11:33 Tenecteplase 5 Mg/Ml Inj IVP 11/29/24 11:22 25 mg ONCE ONE Administration MDM - Neuro Symptoms/Deficit MDM Narrative Medical decision making narrative: Patient is 74-year-old male presenting for a code stroke. I met EMS in the hallway any brought him straight to CT scan. He is clearly having left facial droop and left arm weakness on my initial exam. Did not do further exam at that time as I will bleed was more important to get the CT scans done immediately and he had enough symptoms already for me this say this is likely a stroke. He does have an iodine allergy a has some throat swelling but he has had CT a is not before without pretreatment to do not believe we need to wait. I spoke to Dr. Helton immediately who then spoke to the patient and the patient's room. He recommended tenecteplase and transfer via air for possible thrombectomy. 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 Rest of labs showed no abnormalities. CT scan does show concerns for blockage of the right ICA. Patient will be transferred Lab Data Labs: Lab Results 11/29/24 Range/Units 11:11 WBC 7.73 (4.50-11.00) K/uL RBC 4.43 (4.30-5.90) m/uL Hgb 13.0 L (13.5-17.5) gm/dL Hct 39.5 (37.0-53.0) % MCV 89 (80-100) fL MCH 29 (26-34) pg MCHC 33 (32-36) gm/dL RDW Coeff of Gabrielle 14.4 (11.5-15.5) % Plt Count 252 (140-440) K/uL Neut % (Auto) 64.5 (42.0-72.0) % Lymph % (Auto) 21.0 (20-44) % Meigs % (Auto) 9.2 (0.0-11.0) % Eos % (Auto) 4.3 (0.0-7.0) % Baso % (Auto) 0.6 (0.0-3.0) % Neut # (Auto) 4.99 (1.7-7.0) K/uL Lymph # (Auto) 1.62 (0.90-2.90) K/uL Meigs # (Auto) 0.70 (0.00-0.90) K/UL Eos # (Auto) 0.33 (0.00-0.50) K/uL Baso # (Auto) 0.05 (0.00-0.30) K/uL Abs Immat Gran (auto) 0.03 (0.00-0.30) K/uL Imm/Tot Granulo (auto) 0.4 % INR 1.00 (0.91-1.10) APTT 25 (23-33) Seconds Sodium 137 (135-149) mmol/L Potassium 3.8 (3.6-5.1) mmol/L Chloride 105 (96-114) mmol/L Carbon Dioxide 23 (20-32) mmol/L Anion Gap 9 (7-15) mEq/L BUN 14 (7-30) mg/dL Creatinine 0.8 (0.5-1.5) mg/dL Estimated GFR 94 ml/min Glucose 207 H (60-115) mg/dL Calcium 8.9 (8.4-10.6) mg/dL Imaging Data CT scan - head: Attestation: I have reviewed the pertinent imaging results. Radiologist's impression: IMPRESSION:1. No CT evidence of acute cortical infarct. No acute intracranial hemorrhage. No other acute intracranial findings. Please note that all CT scans at this facility use dose modulation, iterative reconstruction, and/or weight-based dosing when appropriate to reduce radiation dose to as low as reasonably achievable. Dictated by Tyrone Kebede MD @ 11/29/2024 11:35:55 AM CTA head and neck: Attestation: I have reviewed the pertinent imaging results. 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 Minimal opacification of the right superior intracranial segment presumably due to retrograde flow. The right M1 middle cerebral artery is patent. There is occlusion of the right M2 MCA anterior/superior branch within the sylvian fissure. Hypoplastic right anterior cerebral artery is noted. Hypoplastic right posterior communicating artery is noted. These vessels contribute to supply of the right MCA despite the ICA occlusion. The other major intracranial arteries are grossly patent. Advanced stenosis of the left internal carotid artery origin. The internal artery beyond the origin is patent. I discussed the findings of this exam as well as the head CT with Dr. Helton at the time of interpretation, 11:41 a.m., 11/29/2024. ECG Data Attestation: I personally reviewed and interpreted this ECG as follows: Prior ECG tracings: available for review Interpretation: Sinus tachycardia with a rate of 103 beats per minute, normal intervals, normal axis, no ST or T-wave abnormalities. Critical Care Time Critical Care Time Critical Care Time: Yes Attestation: The patient required my highest level preparedness to intervene emergently and I personally spent this critical care time directly and personally managing the patient. This critical care time included: Obtaining a history; Examining the patient; Pulse oximetry; Ordering and reviewing of studies; Arranging urgent treatment with development of a management plan; Evaluation of patients response to treatment; Frequent reassessment discussions with other providers. This critical care time was performed to assess and manage the high probability of imminent life-threatening deterioration that could result in multiorgan failure. It was exclusive of separate billable procedures and treating other patients and teaching time. Total Critical Care Time in Minutes: 53 Discharge Plan Discharge Clinical Impression: Acute CVA (cerebrovascular accident) Patient Disposition: [facility] Condition: Critical Prescriptions: No Action cholecalciferol (vitamin D3) 50 mcg (2,000 unit) capsule 50 mcg PO QDAY multivitamin [Multiple Vitamins] Tablet 1 tab PO QDAY diphenhydramine HCl [Allergy Relief(diphenhydramin)] 25 mg capsule 25 mg PO BID PRN duloxetine 60 mg capsule,delayed release(DR/EC) 60 mg PO DAILY pantoprazole 40 mg tablet,delayed release (DR/EC) 40 mg PO DAILY acetaminophen 650 mg tablet extended release 650 mg PO Q8H PRN allopurinol 100 mg tablet 300 mg PO DAILY Eliquis 5 mg tablet 5 mg PO BID Qty: 60 2RF Eliquis DVT-PE Treat 30D Start 5 mg (74 tabs) tablets,dose pack 5 mg PO BID Qty: 74 0RF Rx Instructions: take 10 mg twice daily for for 7 days then 5 mg twice daily the her after that pravastatin 40 mg tablet 40 mg PO DAILY Stand Alone Forms: [employer] Info Instructions
[2024-11-29 11:37] LABS: INR 1.00 (0.91-1.10); Prothrombin Time 14.0 Seconds
--- OUTSIDE RECORDS SUMMARY | 2024-11-30 18:09 | XMS_ITS | Clinical Summary ---
Author Organization [facility] Address [address] [place] [id number] Care Team Providers Care Neurourologist Name Role Phone Juanis Carrero NP Primary Care Provider [phone] Allergies Active Allergy Reactions Criticality Noted Date Comments Iodine 05/05/2005 Lorazepam Hallucinations 07/21/2009 (ativan) hallucinations Shellfish Containing Products Anaphylaxis High 05/03/2005 mild reaction to shrimp Medications multivitamin (MVI) tablet Take 1 tablet. by mouth continuous as needed (pain). 0 017 Suspended acetaminophen SR (Tylenol 8 Hour) 650 mg Extended-Release tabletIndications :Chronic abdominal pain Take 1 Tablet (650 mg) by mouth every 8 hours if needed. Max acetaminophen dose: 4000mg in 24 hrs. 0 021 Suspended cholecalciferol (Vitamin D-3) 2,000 unit capsule Take 1 Capsule (2,000 units) by mouth once daily. 024 Suspended diphenhydrAMINE (BENADRYL) 25 mg capsuleIndication s:allergic rhinitis Take 25 mg by mouth once daily if needed. 024 Suspended DULoxetine 60 mg Delayed-release capsuleIndication s:Chronic pain disorder,Neuropat hy Take 1 Capsule (60 mg) by mouth once daily. 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 14 Capsule 025 2024 Discontinued(* Patient states no longer taking) pravastatin 40 mg tabletIndications :Hyperlipidemia, unspecified hyperlipidemia type Take 1 Tablet (40 mg) by mouth at bedtime. 90 Tablet 025 2024 Discontinued apixaban 5 mg tabletIndications :Chronic deep vein thrombosis (DVT) of femoral vein, unspecified laterality (HC) Take 0.5 Tablets (2.5 mg) by mouth two times daily. 90 Tablet 1 025 Suspended Additional Information Patient taking differently:2.5 mg OralDAILY, Reported on 11/29/2024 pravastatin (PRAVACHOL) 40 mg tabletIndications :Hyperlipidemia, unspecified hyperlipidemia type TAKE ONE TABLET BY MOUTH AT BEDTIME 90 Tablet 025 Suspended cephalexin 500 mg capsuleIndication s:Complicated UTI (urinary tract infection) Take 1 Capsule (500 mg) by mouth three times daily for 7 days. 21 Capsule 025 2024 Suspended Hospital, Clinic, or Other Facility Administered Medication Ordered Dose Route Frequency Start Date End Date Status cefTRIAXone (ROCEPHIN) injection 1 gIndications:urinary tract infection 1 g IM ONE TIME 11/28/2024 11/28/2024 Ended Active Problems Problem Noted Date Diagnosed Date Acute ischemic stroke 11/29/2024 Occlusion of right middle cerebral artery 2024 Bilateral carotid artery stenosis 11/29/2024 Acute respiratory insufficiency 11/29/2024 Factor V Leiden 11/29/2024 Neuropathy 08/06/2024 Overview (08/06/2024): Peripheral sensory and due to lumbar radiculopathy see EMG [place] 2019 Prediabetes 04/21/2024 Factor 5 Leiden mutation, heterozygous Abnormal glucose 09/27/2023 Hyperlipidemia 07/02/2022 Noncompliance with [...] patient. Hilda Jett MD, FACP, [facility], [facility] Vascular Medicine Post-traumatic seroma 04/13/20092023 Colitis 12/08/2007 03/18/2024 Urethral injury 10/28/2007 03/18/2024 Overview (03/18/2024): disruption CHOLELITHIASIS 05/05/2005 05/15/2016 RUQ PAIN 05/05/2005 05/15/2016 HYPOXIA 05/05/2005 05/15/2016 Chronic pain disorder 2023 Overview (07/23/2019): Regular tramadol use,#120 should last 30 days. Strict. Encounter for screening colonoscopy 03/18/2024 Encounters Date Type Department Care Team Description 11/29/2024 12:40 PM CDT - Present Hospital Encounter [facility] [address] [place] [address] Amish Cruz MD Malik, Muhammad Ibrahim, MD 11/29/2024 Office Visit [facility] [address] [place] [phone] Augustus Helton MBBS Telehealth ([facility]) 11/28/2024 5:48 PM CDT - 11/28/2024 6:23 PM CDT Emergency [facility] [address] [place] [address] 11/28/2024 5:40 PM CDT - 11/28/2024 11:59 PM CDT Hospital Encounter [facility] [address] [place] [address] Em Ortiz NP Gross hematuria; Urinary hesitancy 11/28/2024 4:05 PM CDT Office Visit [facility] [address] [place] [address] Em Ortiz NP Blood In Urine 11/28/2024 Travel 11/28/[address] [facility] [address] [place] [address] Juanis Carrero NP Urinary Problem 11/28/[address] [facility] [address] [place] [address] Juanis Carrero NP Refill Request (celecoxib) 11/17/2024 3:15 PM CDT Ancillary Procedure [facility] [address] [place] [address] 11/17/2024 9:30 AM CDT Ancillary Procedure [facility] [address] [place] [address] 11/17/2024 9:00 AM CDT Office Visit [facility] [address] [place] [address] Ashley De PA Foot Injury (Right) 11/17/2024 Travel 11/07/[address] [facility] [address] [place] [place] [address] Juanis Carrero, ED Refill Request (Pravastatin) 10/29/[address] [facility] [address] [place] [address] Juanis Carrero NP Foot Pain/problem 10/22/[address] 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 Not on file Not on file Obstetrics History Last Filed Vital Signs Vital Sign Reading Time Taken Comments Blood Pressure 143/90 11/30/2024 5:31 PM CDT Pulse 96 11/30/2024 5:31 PM CDT Temperature 37.1 C (98.7 F) 11/30/2024 4:00 PM CDT Respiratory Rate 16 11/30/2024 4:00 PM CDT Oxygen Saturation 95% 11/30/2024 5:31 PM CDT Inhaled Oxygen Concentration - - Weight 115.7 kg (255 lb 1.2 oz) 025 10:00 PM CDT Height 175.3 cm (5' 9) 11/29/2024 3:00 PM CDT Body Mass Index 37.67 11/29/2024 3:00 PM CDT Plan of Treatment Upcoming Encounters Date Type Department Care Team (Late st Contact Info) Description 12/15/2024 1:05 PM CDT Office Visit [facility] [address] [place] [address] Juanis Carrero, ED [address] [place] [address] Health Maintenance Due Date Last Done Comments [...] Additional history exists Lipids for age 45-75 11/30/2029 11/30/2024, 08/06/2024, 05/16/2023, Additional history exists Colonoscopy through age 75 07/21/203107/20, 07/17/2011, 04/01/2007, Additional history exists Hepatitis C screening for ag e 18-79 Completed 06/10/2018, 05/15/2016 Hepatitis B series for 19+ Completed 06/10, 06/28/2017, 05/15/2016 Pneumococcal series for age 50+ Completed 0, 06/28/2017 Zoster (shingles) series for age 50+ Completed 10/03/2021, 08/03/2021 RSV vaccine for adults or Completed 04/18/2023 Procedures * The patient is currently admitted. The information in this section might not be complete until the patient is discharged. Procedure Name Priority Date/Time Associated Diagnosis Comments CT ANGIO HEAD NECK CAROTID STROKE PROTOCOL JANETT CANDIDAT Routine 11/30/2024 8:[address] HEAD BRAIN WO Routine 11/30/2024 8:21 AM CDT GLUCOSE METER Timed 11/30/2024 7:49 AM CDT MR HEAD BRAIN WO Routine 11/30/2024 5:2 7 AM CDT CBC WITH AUTO DIFFERENTIAL Early AM 11/30/2024 4:54 AM CDT BASIC METABOLIC PANEL Early AM 11/30/2024 4:54 AM CDT CBC WITH AUTO DIFFERENTIAL Early AM 11/30/2024 4:54 AM CDT LIPID PANEL Early AM 11/30/2024 4:54 AM CDT GLUCOSE METER Timed 11/29/2024 8:21 PM CDT SCAN-CARDIAC STRIP 11/29/2024 3: 30 PM CDT CBC WITH AUTO DIFFERENTIAL STAT 11/29/2024 3:17 PM CDT CBC WITH AUTO DIFFERENTIAL STAT 11/29/2024 3:17 PM CDT BASIC METABOLIC PANEL STAT 11/29/2024 3:17 PM CDT EKG 12 LEAD STAT 11/29/2024 2:06 PM CDT GLUCOSE METER Timed 11/29/2024 2:05 PM CDT IR ANGIO NEURO-INTERVENTIONAL STAT 11/29/2024 1:[address] ABDOMEN PELVIS W STAT 11/28/2024 6 :30 PM CDT Gross hematuria Urinary hesitancy CBC WITH AUTO DIFFERENTIAL STAT 11/28/2024 5:39 PM CDT Gross hematuria Urinary hesitancy BASIC METABOLIC PANEL STAT 11/28/2024 5:39 PM CDT Gross hematuria Urinary hesitancy CBC WITH AUTO DIFFERENTIAL STAT 11/28/2024 5:39 PM CDT Gross hematuria Urinary hesitancy URINALYSIS MICROSCOPIC STAT 11/28/2024 4:19 PM CDT Urinary symptom or sign URINE CULTURE STAT 11/28/2024 4:19 PM CDT Urinary symptom or sign UA W/ SEDIMENT EXAM REFLEXED PER CRITERIA STAT 11/28/2024 4:19 PM CDT Urinary symptom or sign US VENOUS LOWER EXTREMITY RIGHT TYRESE 11/17/2024 3:46 PM CDT Abnormal coagulation profile XR FOOT 3 VIEWS RIGHT TYRESE 11/17/2024 9:35 AM CDT Foot pain, right COLONOSCOPY 07/20/2021 10:54 AM CDT ANTI HCV Routine 06/10/2018 10:57 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 Interval re-occlusion of the right internal carotid artery at its origin with distal reconstitution in its supraclinoid segment via the [place] of [place]. The right middle cerebral artery branches remain patent. 2. Unchanged severe (80%) stenosis at the origin of the left internal carotid artery by NASCET criteria. This is caused by primarily calcified plaque with a 1mm residual lumen. 3. Severe left and mild right vertebral artery origin stenosis. Findings were discussed with Dr. Hoyos at 8:50 AM. Please note that all CT scans at this facility use dose modulation, iterative reconstruction, and/or weight-based dosing when appropriate to reduce radiation dose to as low as reasonably achievable. Dictated by: Joaquín Schroeder MD @ 11/30/2024 08:53:11 (Electronically Signed) Narrative 11/30/2024 8:53 AM CDT For Patients: As a result of the Century Cures Act, medical imaging exams and procedure reports are released immediately into your electronic medical record. You may view this report before your referring provider. If you have questions, please contact your health care provider. CT ANGIOGRAM HEAD AND NECK DATE: 11/30/2024. CLINICAL HISTORY: Patient with focal neurological deficits, right ICA occlusion. TECHNIQUE: Standard helical CT image acquisition through the head and neck was performed after intravenous contrast bolus enhancement. 2D and 3D MIP images for post-processing were performed and interpreted on an independent workstation and 3D images were permanently archived. COMPARISON: CT same day. FINDINGS: There has been interval re-occlusion of the right internal carotid artery at its origin with distal reconstitution in its supraclinoid segment via the Saxman of [place]. The right middle cerebral artery branches remain patent. There is an unchanged severe (80%) stenosis at the origin of the left internal carotid artery by NASCET criteria. This is caused by primarily calcified plaque with a 1mm residual lumen. The origins of the great vessels from the aortic arch are patent. The origin of the right vertebral artery demonstrates mild narrowing. The origin of the left vertebral artery demonstrates severe narrowing. The common carotid arteries are patent. The rest of the cervical and intracranial segments of the left internal carotid artery are patent. The vertebral arteries are codominant. The cervical segments of the vertebral arteries are patent. The intracranial segments of the vertebral arteries are patent. The left middle cerebral artery is patent without aneurysm or proximal occlusion identified. The anterior cerebral arteries are normal without aneurysm or proximal occlusion identified. The anterior communicating artery is well visualized and appears normal. The basilar artery is normal without aneurysm or occlusion. The posterior cerebral arteries are normal without aneurysm or proximal occlusion. There is normal opacification of major intracranial venous structures. The visualized lung apices are unremarkable. The thyroid gland is unremarkable. The soft tissues of the neck are unremarkable. There are degenerative changes in the cervical spine. Procedure Note Joaquín Schroeder MD - 11/30/2024 For Patients: As a result of the Cures Act, medical imagingexams and procedure reports are released immediately into your electronicmedical record. You may view this report before your referring provider.If you have questions, please contact your health care provider. CT ANGIOGRAM HEAD AND NECK DATE: 11/30/2024. CLINICAL HISTORY: Patient with focal neurological deficits, right ICAocclusion. TECHNIQUE: Standard helical CT image acquisition through the head and neckwas performed after intravenous contrast bolus enhancement. 2D and 3D MIPimages for post-processing were performed and interpreted on anindependent workstation and 3D images were permanently archived. COMPARISON: CT same day. FINDINGS: There has been interval re-occlusion of the right internal carotid arteryat its origin with distal reconstitution in its supraclinoid segment viathe Saxman of [place]. The right middle cerebral artery branches remainpatent. There is an unchanged severe (80%) stenosis at the origin of the leftinternal carotid artery by NASCET criteria. This is caused by primarilycalcified plaque with a 1mm residual lumen. The origins of the great vessels from the aortic arch are patent. Theorigin of the right vertebral artery demonstrates mild narrowing. Theorigin of the left vertebral artery demonstrates severe narrowing. The common carotid arteries are patent. The rest of the cervical and intracranial segments of the left internalcarotid artery are patent. The vertebral arteries are codominant. The cervical segments of thevertebral arteries are patent. The intracranial segments of the vertebralarteries are patent. The left middle cerebral artery is patent without aneurysm or proximalocclusion identified. The anterior cerebral arteries are normal without aneurysm or proximalocclusion identified. The anterior communicating artery is well visualized and appears normal. The basilar artery is normal without aneurysm or occlusion. The posterior cerebral arteries are normal without aneurysm or proximalocclusion. There is normal opacification of major intracranial venous structures. The visualized lung apices are unremarkable. The thyroid gland is unremarkable. The soft tissues of the neck are unremarkable. There are degenerative changes in the cervical spine. IMPRESSION: 1. Interval re-occlusion of the right internal carotid artery at itsorigin with distal reconstitution in its supraclinoid segment via theCircle of [place]cock. The right middle cerebral artery branches remain patent. 2. Unchanged severe (80%) stenosis at the origin of the left internalcarotid artery by NASCET criteria. This is caused by primarily calcifiedplaque with a 1mm residual lumen. 3. Severe left and mild right vertebral artery origin stenosis. Findings were discussed with Dr. Hoyos at 8:50 AM. Please note that all CT scans at this facility use dose modulation,iterative reconstruction, and/or weight-based dosing when appropriate toreduce radiation dose to as low as reasonably achievable. Dictated by: Joaquín Schroeder MD @ 11/30/2024 08:53:11 (Electronically Signed) Joaquín Schroeder MD CT Final Result * CT HEAD BRAIN WO (11/30/2024 8:21 AM CDT) Anatomical Region Laterality Modality HEAD, BRAIN Computed Tomogra phy 11/30/2024 8:40 AM CDT Impressions 11/30/2024 8:40 AM CDT 1. No intracranial hemorrhage. 2. Evolving early subacute right temporal, parietal and frontal lobe infarctions, as well as right caudate head / anterior internal capsule infarctions. Please note that all CT scans at this facility use dose modulation, iterative reconstruction, and/or weight-based dosing when appropriate to reduce radiation dose to as low as reasonably achievable. Dictated by: Joaquín Schroeder MD @ 11/30/2024 08:40:10 (Electronically Signed) Narrative 11/30/2024 8:40 AM CDT For Patients: As a result of the Cures Act, medical imaging exams and procedure reports are released immediately into your electronic medical record. You may view this report before your referring provider. If you have questions, please contact your health care provider. CT HEAD DATE: 11/30/2024 CLINICAL HISTORY: Patient with focal neurological deficits. TECHNIQUE: Standard CT scanning of the head was performed. COMPARISON: MRI same day. FINDINGS: There is no intracranial hemorrhage. There are evolving early subacute right temporal, parietal and frontal lobe infarctions, as well as right caudate head / anterior internal capsule infarctions. There is no territorial infarction. There are moderate microangiopathic changes. There is diffuse parenchymal volume loss. There is no mass effect or midline shift. The calvarium is unremarkable. The orbits are unremarkable. The paranasal sinuses are unremarkable. The mastoid air cells are unremarkable. The soft tissues are unremarkable. Procedure Note Joaquín Schroeder MD - 11/30/2024 For Patients: As a result of the Cures Act, medical imagingexams and procedure reports are released immediately into your electronicmedical record. You may view this report before your referring provider.If you have questions, please contact your health care provider. CT HEAD DATE: 11/30/2024 CLINICAL HISTORY: Patient with focal neurological deficits. TECHNIQUE: Standard CT scanning of the head was performed. COMPARISON: MRI same day. FINDINGS: There is no intracranial hemorrhage. There are evolving early subacute right temporal, parietal and frontallobe infarctions, as well as right caudate head / anterior internalcapsule infarctions. There is no territorial infarction. There are moderate microangiopathic changes. There is diffuse parenchymal volume loss. There is no mass effect or midline shift. The calvarium is unremarkable. The orbits are unremarkable. The paranasal sinuses are unremarkable. The mastoid air cells are unremarkable. The soft tissues are unremarkable. IMPRESSION: 1. No intracranial hemorrhage. 2. Evolving early subacute right temporal, parietal and frontal lobeinfarctions, as well as right caudate head / anterior internal capsuleinfarctions. Please note that all CT scans at this facility use dose modulation,iterative reconstruction, and/or weight-based dosing when appropriate toreduce radiation dose to as low as reasonably achievable. Dictated by: Joaquín Schroeder MD @ 11/30/2024 08:40:10 (Electronically Signed) us Joaquín Schroeder MD CT Final Result * (ABNORMAL) GLUCOSE METER (11/30/2024 7:49 AM CDT) Only the most recent of3 resultswithin the time period is included. [facility] GLUCOSE METER 142(H) 65 - 100 mg/dL 11/30/2024 7:55 AM CDT [facility] Blood BLOOD SPECIMEN / Unknown 11/30/2024 7:49 AM CDT 11/30/2024 7:55 AM CDT us Mildred Hoyos MD CHEMISTRY Final Result [facility] [address] [place] [id number], * MR BRAIN WO CONTRAST (11/30/2024 5:27 AM CDT) Anatomical Region Laterality Modality BRAIN, HEAD Magnetic Resonan ce 11/30/2024 7:11 AM CDT Impressions 11/30/2024 7:11 AM CDT 1. Moderate acute infarction in the right temporal and parietal lobes with associated petechial hemorrhage in the infarct bed. In addition, there are small infarctions in the right posterior frontal lobe, right insular cortex and right caudate head / anterior limb of the right internal capsule. 2. Punctate acute infarction in the left posterior frontal lobe is likely related to the recent catheterization. 3. Loss of the right internal carotid artery T2 flow void is concerning for re-occlusion. The right M1 segment T2 flow void is largely patent also less robust than the left side. Further evaluation with a head CT without and CTA head and neck will be obtained. Findings were discussed with Drs. Hoyos and Marge at 7:10 AM. Dictated by: Joaquín Schroeder MD @ 11/30/2024 07:11:48 (Electronically Signed) Narrative 11/30/2024 7:11 AM CDT For Patients: As a result of the Cures Act, medical imaging exams and procedure reports are released immediately into your electronic medical record. You may view this report before your referring provider. If you have questions, please contact your health care provider. EXAMINATION: MRI BRAIN DATE: 11/30/2024 HISTORY: Patient with right ICA occlusion, status post mechanical thrombectomy. TECHNIQUE: Multi-sequence, multiplanar MRI examination of the brain was performed. COMPARISON: Angiogram 11/29/2024. FINDINGS: There is a moderate acute infarction in the right temporal and parietal lobes with associated petechial hemorrhage in the infarct bed. In addition, there are small infarctions in the right posterior frontal lobe, right insular cortex and right caudate head / anterior limb of the right internal capsule. There is a punctate acute infarction in the left posterior frontal lobe. There is loss of the right internal carotid artery T2 flow void, concerning for re-occlusion. The right M1 segment T2 flow void is largely patent also less robust than the left side. There are scattered foci of T2/FLAIR signal hyperintensity in the periventricular and subcortical white matter, likely related to microangiopathic changes. There is diffuse prominence of the CSF spaces, consistent with diffuse parenchymal volume loss. The orbits are unremarkable. The paranasal sinuses demonstrate moderate disease. The mastoid air cells are clear. The calvarium is unremarkable. Procedure Note Joaquín Schroeder MD - 11/30/2024 For Patients: As a result of the Cures Act, medical imagingexams and procedure reports are released immediately into your electronicmedical record. You may view this report before your referring provider.If you have questions, please contact your health care provider. EXAMINATION: MRI BRAIN DATE: 11/30/2024 HISTORY: Patient with right ICA occlusion, status post mechanicalthrombectomy. TECHNIQUE: Multi-sequence, multiplanar MRI examination of the brain wasperformed. COMPARISON: Angiogram 11/29/2024. FINDINGS: There is a moderate acute infarction in the right temporal and parietallobes with associated petechial hemorrhage in the infarct bed. Inaddition, there are small infarctions in the right posterior frontal lobe,right insular cortex and right caudate head / anterior limb of the rightinternal capsule. There is a punctate acute infarction in the left posterior frontal lobe. There is loss of the right internal carotid artery T2 flow void,concerning for re-occlusion. The right M1 segment T2 flow void is largelypatent also less robust than the left side. There are scattered foci of T2/FLAIR signal hyperintensity in theperiventricular and subcortical white matter, likely related tomicroangiopathic changes. There is diffuse prominence of the CSF spaces, consistent with diffuseparenchymal volume loss. The orbits are unremarkable. The paranasal sinuses demonstrate moderate disease. The mastoid air cells are clear. The calvarium is unremarkable. IMPRESSION: 1. Moderate acute infarction in the right temporal and parietal lobes withassociated petechial hemorrhage in the infarct bed. In addition, there aresmall infarctions in the right posterior frontal lobe, right insularcortex and right caudate head / anterior limb of the right internalcapsule. 2. Punctate acute infarction in the left posterior frontal lobe is likelyrelated to the recent catheterization. 3. Loss of the right internal carotid artery T2 flow void is concerningfor re-occlusion. The right M1 segment T2 flow void is largely patent alsoless robust than the left side. Further evaluation with a head CT without and CTA head and neck will beobtained. Findings were discussed with Drs. Hoyos and Marge at 7:10 AM. Dictated by: Joaquín Schroeder MD @ 11/30/2024 07:11:48 (Electronically Signed) us Joaquín Schroeder MD MR Final Result * (ABNORMAL) CBC WITH AUTO DIFFERENTIAL (11/30/2024 4:54 AM CDT) Only the most recent of3 resultswithin the time period is included. Pathologist [facility] WHITE BLOOD COUNT 10.9 4.5 - 11.0 thou/cu mm 11/30/2024 5:12 AM CDT [facility] RED BLOOD COUNT 4.21(L) 4.30 - 5.90 mil/cu mm 11/30/2024 5:12 AM CDT [facility] HEMOGLOBIN 12.2(L) 13.5 - 17.5 g/dL 11/30/2024 5:12 AM CDT [facility] HEMATOCRIT 37.3 37.0 - 53.0 % 11/30/2024 5:12 AM T [facility] MCV 89 80 - 100 fL 11/30/2024 5:12 AM T [facility] MCH 29.0 26.0 - 34.0 pg 11/30/2024 5:12 AM CDT [facility] MCHC 32.7 32.0 - 36.0 g/dL 11/30/2024 5:12 AM [facility] RDW 14.6 11.5 - 15.5 % 11/30/2024 5:12 AM CDT [facility] PLATELET COUNT 250 140 - 440 thou/cu mm 11/30/2024 5:[facility] MPV 8.9 6.5 - 11.0 fL 11/30/2024 5:12 AM [facility] NRBC 0.0 % 11/30/2024 5:12 AM [facility] ABS NRBC 0.0 thou /cu mm 11/30/2024 5:12 [facility] % NEUT 72.6 % 11/30/2024 5:12 [facility] % LYMPH 12.6 % 11/30/2024 5:12 AM [facility] % MONO 11.4 % 11/30/2024 5:12 AM [facility] % EOS 2.1 % 11/30/2024 5:12 AM [facility] % BASO 0.9 % 11/30/2024 5:12 AM [facility] % IMMATURE GRAN (METAS,MYELOS,NH OS) 0.4 % 11/30/2024 5:12 AM CDT [facility] ABSOLUTE NEUTROPHILS 7.9(H) 1.7 - 7.0 thou/cu mm 11/30/2024 5:12 AM CDT [facility] ABSOLUTE LYMPHOCYTES 1.4 0.9 - 2.9 thou/cu mm 11/30/2024 5:12 AM CDT [facility] ABSOLUTE MONOCYTES 1.2(H) <0.9 thou/cu mm 11/30/2024 5:12 AM CDT [facility] ABSOLUTE EOSINOPHILS 0.2 <0.5 thou/cu mm 11/30/2024 5:12 AM CDT [facility] ABSOLUTE BASOPHILS 0.1 <0.3 thou/cu mm 11/30/2024 5:12 AM CDT [facility] ABSOLUTE IMMATURE GRANULOCYTES(MET ,MYELOS,PROS) 0.0 <0.3 thou/cu mm 11/30/2024 5:12 AM CDT [facility] Blood BLOOD SPECIMEN / Unknown Butterfly / Unknown 11/30/2024 4:54 AM CDT 11/30/2024 5:00 AM CDT Mildred Hoyos MD HEMATOLOGY Final Result [facility] [address] [place] [address], * Lipid Panel (11/30/2024 4:54 AM CDT) CHOLESTEROL,TOTAL 153 100 - 199 mg/dL 11/30/2024 5:29 AM CDT [facility] Comment: Cholesterol, Total Reference Ranges Desirable <200 mg/dL Borderline 200-239 mg/dL High >=240 mg/dL TRIGLYCERIDES 93 <150 mg/dL 11/30/2024 5:29 AM CDT [facility] HDL CHOLESTEROL 57 >40 mg/dL 5:29 AM CDT [facility] NON-HDL CHOLESTEROL 96 <145 mg/dl 11/30/2024 5:29 AM CDT [facility] CHOL/HDL RATIO 2.68 <4.50 11/30/2024 5:29 AM CDT [facility] LDL CHOLESTEROL 77 <=130 mg/dL 11/30/2024 5:29 AM CDT [facility] VLDL CHOLESTEROL 19 <=30 mg/dL 11/30/2024 5:29 AM CDT [facility] PROVIDER ORDERED STATUS RANDOM 11/30/2024 5:29 AM CDT [facility] Blood BLOOD SPECIMEN / Unknown Butterfly / Unknown 11/30/2024 4:54 AM CDT 11/30/2024 5:00 AM CDT Mildred Hoyos MD CHEMISTRY Final Result [facility] [address] [place] [address], * (ABNORMAL) Basic Metabolic Panel (11/30/2024 4:54 AM CDT) Only the most recent of3 resultswithin the time period is included. SODIUM 142 136 - 145 mmol/L 11/30/2024 5:29 AM CDT [facility] POTASSIUM 4.1 3.5 - 5.1 mmol/L 11/30/2024 5:29 AM CDT [facility] CHLORIDE 105 98 - 107 mmol/L 11/30/2024 5:29 AM CDT [facility] CO2,TOTAL 23 22 - 29 mmol/L 11/30/2024 5:29 AM CDT [facility] ANION GAP 14 5 - 18 11/30/2024 5:29 AM CDT [facility] GLUCOSE 133(H) 70 - 99 mg/dL 11/30/2024 5:29 AM T [facility] CALCIUM 9.3 8.8 - 10.4 mg/dL 11/30/2024 5:29 AM CDT [facility] Comment: Reference ranges for this test were updated on 03/04/2024 to reflect our healthy population more accurately. Reference range changes are not retroactively applied to results, but previous results using the same methodology can be interpreted in the context of the new reference range. BUN 10 8 - 23 mg/dL 11/30/2024 5:29 AM CDT [facility] CREATININE 0.73 0.70 - 1.20 mg/dL 11/30/2024 5:29 AM CDT [facility] BUN/CREAT RATIO 14 10 - 20 5:29 AM CDT [facility] eGFR >90 >90 mL/min/1. 73m2 11/30/2024 5:29 AM CDT [facility] Comment:As of 2021, eG FR is calculated by the CKD-EPI creatinine equation without race adjustment. eGFR can be influenced by muscle mass, exercise, and diet. The reported eGFR is an estimation only and is only applicable if the renal function is stable. Blood BLOOD SPECIMEN / Unknown Butterfly / Unknown 11/30/2024 4:54 AM CDT 11/30/2024 5:00 AM CDT Mildred Hoyos MD CHEMISTRY Final Result [facility] [address] [place] [id number], * SCAN-CARDIAC STRIP (11/29/2024 3:30 PM CDT) us Scanner OTHER Final Result * IR ANGIO NEURO-INTERVENTIONAL (11/29/2024 1:41 PM CDT) Anatomical Region Laterality Modality X-Ray Angiograph y Impressions 11/29/2024 2:22 PM CDT 1. Successful mechanical thrombectomy of a large occlusive thrombus in the right cervical internal carotid artery with an associated embolus to the right M2 segment with the NAIMA+ and RED62 reperfusion catheters using the ADAPT technique. 2. Residual moderate (66%) stenosis in the mid cervical segment of the right internal carotid artery by NASCET criteria, after mechanical thrombectomy. 3. Severe (82%) stenosis in the proximal cervical segment of the left internal carotid artery by NASCET criteria. Findings were discussed with Drs. Bird and Romain at the end of the procedure. Joaquín Schroeder M.D. Neurointerventional Radiologist [facility] Pager: Office/Referrals: [facility]: [email or web address] Narrative 11/29/2024 2:22 PM CDT PROCEDURES: 1. Transarterial mechanical thrombectomy (CPT 04816, 22 modifier): right ICA origin occlusion with M2 segment embolus. 2. Selective catheter placement, left common carotid artery, with angiography of the extracranial carotid circulation (CPT 03695) 3. Ultrasound guidance for vascular access (CPT +21046): right common femoral artery. 4. Angioseal hemostatic closure device placement. DATE: . HISTORY: 74 year-old male patient with a right ICA origin occlusion with a right M2 segment embolus presents for mechanical thrombectomy. PHYSICIAN: Dr. Schroeder. MEDICATIONS: 1% buffered Lidocaine (local). SAMPLES: None. POST-PROCEDURE DIAGNOSIS: Status post successful mechanical thrombectomy of a large occlusive thrombus in the right cervical internal carotid artery with an associated embolus to the right M2 segment with the NAIMA+ and RED62 reperfusion catheters using the ADAPT technique. Moderate (66%) residual stenosis in the mid cervical segment of the right internal carotid artery by NASCET criteria after mechanical thrombectomy. Severe (82%) stenosis in the proximal cervical segment of the left internal carotid artery by NASCET criteria. ARTERIAL PUNCTURE TIME: 12:56 PM. REPERFUSION TIME: 1:20 PM. INITIAL TICI SCORE: 0 FINAL TICI SCORE: 2c. PROCEDURE AND FINDINGS: The procedure was performed under emergent consent as the patient was aphasic and family was not immediately available. Immediately prior to arterial puncture, a brief time out was performed to confirm the patient's identity, thrombus location and planned procedure. The procedure was performed under minimal monitored conscious sedation. Both groins were prepped and draped in the usual sterile fashion with Betadine. Next, the right femoral head was localized fluoroscopically and buffered 1% lidocaine was injected for local anesthesia. After successfully identifying a patent vessel and permanently archiving a picture for the patient's record, using ultrasound guidance a micropuncture needle was utilized with a single-wall puncture technique to perform a right common femoral percutaneous arterial puncture and a 8-Malian sheath was placed. A 6 Malian Penumbra Select catheter was introduced inside a Neuron Max 088 catheter and this construct was introduced in the sheath and the right internal carotid artery was then selected with a glidewire. A contrast injection was then performed, which confirmed that there was an occlusion of the proximal and mid segments of the right internal carotid artery. Given this, we introduced a NAIMA+ aspiration catheter into the Neuron Max 088 and advanced it until the aspiration catheter was in the distal cervical segment of the right internal carotid artery and then proceeded to perform an ADAPT pass along the entire length of the right internal carotid artery, using both the NAIMA+ and NeuronMax as aspiration catheters. Then, a contrast injection from the NeuronMax in the right common carotid artery showed that this maneuver has removed all of the thrombus in the right ICA but there was a residual moderate (66%) stenosis in the mid cervical segment of the right ICA by NASCET criteria. Given its moderate nature and good flow past it, we decided not to stent it. We then turned our attention to the intracranial circulation. We carefully navigated the NeuronMax past the moderate stenosis in the right ICA and proceeded to perform a contrast injection. This run demonstrated that there was a large right M2 segment embolus as well as a small right M3 segment embolus. Hence, we decided to attempt to reperfuse the occluded right M2 segment. We first attempted to reach this embolus with a NAIMA+ with a 3Max inside it over a Synchro 14 microwire. However, due to extreme tortuosity in the distal cervical segment of the right ICA, the 3Max catheter was unable to reach the M2 embolus. Given this, we decided to attempt to reach it with a RED62 catheter and Synchro 14 microwire inside the NeuronMax, which was successful. We then proceeded to aspirate the thrombus with the aspiration catheter using the ADAPT technique. After a 3-minute waiting period under continuous aspiration, gentle forward force was applied on the aspiration catheter. We then withdrew the aspiration catheter slowly until blood flow was restored in the tubing, which occurred in the supraclinoid ICA segment. A contrast injection via the aspiration catheter demonstrated that this maneuver had removed most of the thrombus in the middle cerebral artery (TICI 2c). Of note, the right M3 segment embolus remained in place. We then again proceeded to clean the right ICA by aspirating it as we removed the NeuronMax. A repeat contrast injection in the right common carotid artery via the NeuronMax again showed a residual moderate (66%) stenosis by NASCET criteria in its mid segment with a 1.7mm residual lumen. Given its smooth surface and good flow past it, we decided not to stent this stenosis in an emergent fashion. This was reviewed with Dr. Bird. Since the CTA had extensive streak artifact from dental hardware, we decided to better delineate the degree of stenosis at the origin of the left internal carotid artery. To this end, we withdrew the NeuronMax to the aortic arch and then using the 6-Malian Select catheter inside it, we selectively catheterized the left common carotid artery and performed a contrast injection for imaging of the extracranial circulation. This run demonstrated a severe (82%) stenosis in the proximal cervical segment of the left internal carotid artery by NASCET criteria with a 1.1mm residual lumen. At the conclusion of the study, contrast was injected at this site to evaluate the common femoral artery puncture site prior to placement of the Angioseal hemostatic device. The patient was transported to the Neuro-ICU in stable condition. The mechanical thrombectomy procedure was of increased difficulty due to the presence of both a large amount of thrombus in the cervical right internal carotid artery as well as a distal right M2 segment embolus. Compared to a typical mechanical thrombectomy, this procedure required separate reperfusion attempts of both the cervical thrombus and the M2 segment embolus, as well as use of different reperfusion catheters to reach the M2 segment embolus due to extreme tortuosity in the distal cervical ICA, leading to prolonged procedure time, increased technical difficulty and procedural risk, as well as greater mental effort. us Joaquín Schroeder MD IR Final Result * CT ABDOMEN PELVIS W (11/28/2024 6:30 PM CDT) Anatomical Region Laterality Modality Abdomen, Pelvis, AORTA, LIVER, SPLEEN Computed Tomography 11/28/2024 7:12 PM CDT Narrative 11/28/2024 7:12 PM CDT For Patients: As a result of the 21st Century Cures Act, medical imaging exams and [...] result of the Century Cures Act, medical imagingexams and procedure reports [...] MD @ 11/28/2024 7:12:42 PM (Electronically Signed) us Em Ortiz NP CT Final Result * (ABNORMAL) URINALYSIS MICROSCOPIC (11/28/2024 4:19 PM CDT) RBC >100(A) 0-2, None Seen /HPF 11/28/2024 5:06 PM T [facility] WBC 26-50(A) 0-2, 3-5, None Seen /HPF 11/28/2024 5:[address] [facility] BACTERIA Many(A) None Seen, Rare, Few Bacteria/H PF 11/28/2024 5:[address] [facility] EPITHELIAL CELLS Few None Seen, Few Epi/HPF 11/28/2024 5:[address] [facility] Urine URINE SPECIMEN / Unknown Non-Blood / Unknown 11/28/2024 4:19 PM CDT 11/28/2024 4:19 PM CDT us Em Ortiz NP URINE Final Result Performing Organization Address [facility]/ZIP Co de Phone Number [facility] [address] [place] [address] * URINE CULTURE [41767.2] - STAT (11/28/2024 4:19 PM CDT) CULTURE 10-50,000 CFU/mL of multiple organisms, probable contaminants 11/30/2024 4:44 PM CDT [facility] Urine URINE SPECIMEN / Unknown Non-Blood / Unknown 11/28/2024 4:19 PM CDT 11/28/2024 4:19 PM CDT us Em Ortiz NP MICROBIOLOGY Final Result Performing Organization Address [facility] de Phone Number [facility] [address] [place] [id number], [place] * (ABNORMAL) UA W/ SEDIMENT EXAM REFLEXED PER CRITERIA [74143.2] - STAT (11/28/2024 4:19 PM CDT) COLOR Red(A) Yellow Color 11/28/2024 5:01 PM T [facility] CLARITY Cloudy(A) Clear Clarity 11/28/2024 5:01 PM T [facility] SPECIFIC GRAVITY,URINE Unable to interpret due to interfering substance(A) 1.010, 1.015, 1.020, 1.025 11/28/2024 5:01 PM T [facility] PH,URINE Unable to interpret due to interfering substance(A) 6.0, 7.0, 8.0, 5.5, 6.5, 7.5, 8.5 11/28/2024 5:[address] [facility] UROBILINOGEN, QUALITATIVE Unable to interpret due to interfering substance(A) Normal EU/dl 11/28/2024 5:[address] [facility] PROTEIN, URINE Unable to interpret due to interfering substance(A) Negative mg/dL 11/28/2024 5:01 PM CDT [facility] GLUCOSE, URINE Unable to interpret due to interfering substance(A) Negative mg/dL 11/28/2024 5:01 PM CDT [facility] KETONES,URINE Unable to interpret due to interfering substance(A) Negative mg/dL 11/28/2024 5:01 PM CDT [facility] BILIRUBIN,URI NE Unable to interpret due to interfering substance(A) Negative 11/28/2024 5:01 PM CDT [facility] OCCULT BLOOD,URINE Unable to interpret due to interfering substance(A) Negative 11/28/2024 5:01 PM CDT [facility] NITRITE Unable to interpret due to interfering substance(A) Negative 11/28/2024 5:01 PM CDT [facility] LEUKOCYTE ESTERASE Unable to interpret due to interfering substance(A) Negative 11/28/2024 5:01 PM CDT [facility] Urine URINE SPECIMEN / Unknown Non-Blood / Unknown 11/28/2024 4:19 PM CDT 11/28/2024 4:19 PM CDT Em Ortiz NP URINE Final Result Performing Organization Address [facility] [place] Co de Phone Number [facility] [address] [place] [address] * US VENOUS LOWER EXTREMITY RIGHT (11/17/2024 [...] Ashley [facility] Final Result * COLONOSCOPY (07/20/2021 10:54 AM CDT) 07/20/2021 [...] ult * ANTI HCV (06/10/2018 10:57 AM DIGITAL ASSET MANAGER) HEPATITIS C ANTIBODY Non-React napoleon Non-React napoleon 06/10/2018 8:03 PM DIGITAL ASSET MANAGER [facility] Comment:Antibodies to HCV no t detected; does not exclude the possibility of exposure to HCV. Blood BLOOD SPECIMEN / Unknown Venipuncture / Unknown 06/10/2018 10:57 AM DIGITAL ASSET MANAGER 06/10/2018 10:57 AM DIGITAL ASSET MANAGER Gage Casillas DO SEND OUTS Final Res ult [facility] [address] [place] [address], [place] from Last 3 Months or Most Recently Relevant to Health Maintenance Insurance [facility] ADVANTAGE [place] PB ONLY [place] ONLY MEDICARE PART B HB ONLY MEDICARE PART A HB ONLY [address] [facility] [place] [place] [id number] MEDICARE PB ONLY [place] PB ONLY Advance Directives * Full Code (Latest Code Status on File) Date Activated Date Inactivated Comments 11/29/2024 1:56 PM Question Answer Comments Code Status Discussion: Unable to Assess Preferences, Provider to review later * Full Code Date Activated Date Inactivated Comments 07/20/2021 9:48 [...] 8:32 PM 05/09/2005 1:18 PM Care Teams Neurourologist Relationship Specialty Start Date End Date Juanis Carrero NP [address] [facility] [place] [address] PCP - General Nurse Practitioner - Family 06/12/24
== END 2024-11-29 12:24 | disposition short-term general hospital (02) ==
PROVIDERS: Emergency Provider Student in an Organized Health Care Education/Training Program; PCP Family Medicine
DX: I63.9 Cerebral infarction, unspecified (principal); R29.810 Facial weakness; G83.24 Monoplegia of upper limb affecting left nondominant side; R47.81 Slurred speech
CPT/HCPCS: 36415; 70450; 70496; 70498; 80048; 85025; 85610; 85730; 93005; 94761; 99285; 99291; J3101; Q9967